=== PATIENT | male | born 1980 | race Caucasian/White ===

== ENCOUNTER 2022-09-13 20:30 | Emergency (ER) | payer OTHER, SELFPAY ==
[2022-09-13] VITALS (14 sets, daily range): BP systolic 141; BP diastolic 86; PULSE 71–92; RESP 17–26; TEMP 36.9; O2SAT 96–100; BMI 31.2
--- NOTE | 2022-09-13 20:55 | PC.NURSE ---
Pt states the only time the ribs hurt is with deep breathing. States feels similar to the pleurisy he had a while back.
--- NOTE | 2022-09-13 21:29 | ED.URI1 ---
HPI - URI/Sore Throat General Chief Complaint: Upper Respiratory Infection Stated Complaint: URTI Time Seen by Provider: 09/13/22 21:21 Source: patient and family Limitations: no limitations History of Present Illness HPI Narrative: patient presents complaining of pleuritic chest pain. Started today. left anterior chest pain that radiates to his neck with deep breath. Not short of breath. Has felt ill the past week. Vague symptoms of just not feeling right. also past chronic right TM perforation and has had drainage from the right ear. No fever or abdominal pain Related Data Home Medications Medication Instructions Recorded Confirmed cetirizine 10 mg tablet (24Hour 10 mg PO DAILY PRN allergy symptoms 09/13/22 09/13/22 Allergy) Allergies Allergy/AdvReac Type Severity Reaction Status Date / Time No Known Drug Allergies Allergy Verified 09/13/22 20:46 Review of Systems ROS Status of ROS 10 or more systems reviewed and unremarkable except as noted in history and below PFSH PFSH Social History Smoking status: Never smoker Exam Constitutional Vital Signs, click to edit/add: Last Vital Signs Temp 98.4 F 09/13/22 20:42 Pulse 73 09/13/22 20:42 Resp 18 09/13/22 20:42 BP 141/86 H 09/13/22 20:42 Pulse Ox 100 09/13/22 20:42 O2 Del Method Room Air 09/13/22 20:42 Common normals: no apparent distress, average body habitus, oriented x3, no limitations, healthy appearing, alert and well nourished [facility] Common normals: normocephalic and head/scalp atraumatic Other: right TM perforation. No exudate in the canal. canal is not narrowed Eye Common normals: PERRL, EOMs intact bilaterally and conjunctivae normal Respiratory Common normals: normal respiratory effort, no retractions, no use of accessory muscles and clear to auscultation bilaterally Cardio Common normals: regular rate, regular rhythm, S1 normal heart sound and S2 normal heart sound GI Common normals: Normal to inspection, nondistended, normoactive bowel sounds present, soft to palpation and non-tender Extremity Common normals: normal to inspection, full ROM and no joint enlargement Neuro Common normals: oriented x3, CN's II-XII intact bilaterally, moves all extremities, no focal motor deficits and no sensory deficits noted Psych Appearance: grossly normal Course Vital Signs Vital signs: Vital Signs Temperature 98.4 F 09/13/22 20:42 Pulse Rate 73 09/13/22 20:42 Respiratory Rate 18 09/13/22 20:42 Blood Pressure 141/86 H 09/13/22 20:42 Pulse Oximetry 100 09/13/22 20:42 Oxygen Delivery Method Room Air 09/13/22 20:42 Temperature 98.4 F 09/13/22 20:42 Pulse Rate 73 09/13/22 20:42 Respiratory Rate 18 09/13/22 20:42 Blood Pressure 141/86 H 09/13/22 20:42 Pulse Oximetry 100 09/13/22 20:42 Oxygen Delivery Method Room Air 09/13/22 20:42 MDM - URI/Sore Throat MDM Narrative Medical decision making narrative: patient presents complaining of pleuritic chest pain. Not short of breath. no fever. CTA chest with left pleural effusion and early pneumonia. will plan to treat as CAP. he also complains of chronic pain left lower rib cage that he describes as a slip rib. Patient informed there is no mention on his scan of a rib abnormality. will plan to refer to pain clinic to see if they can treat this chronic pain related to his rib Lab Data Labs: Lab Results 09/13/22 Range/Units 21:57 WBC 8.5 (4.0-11.0) 10^3/uL RBC 6.01 (4.70-6.10) 10^6/uL Hgb 15.6 (14.0-18.0) g/dL Hct 49.1 (42.0-54.0) % MCV 81.7 (80.0-94.0) fL MCH 26.0 (25.9-34.0) pg MCHC 31.8 (29.9-35.2) g/dL RDW 14.4 (11.0-15.0) % Plt Count 227 (150-450) 10^3/uL MPV 9.9 (9.5-13.5) fL Neut % (Auto) 65.2 (43.0-75.0) % Lymph % (Auto) 19.5 L (20.5-60.0) % Jerome % (Auto) 12.2 H (1.7-12.0) % Eos % (Auto) 2.5 (0.9-7.0) % Baso % (Auto) 0.2 (0.2-2.0) % Neut # (Auto) 5.5 (1.4-6.5) 10^3/uL Lymph # (Auto) 1.7 (1.2-3.8) 10^3/uL Jerome # (Auto) 1.0 H (0.3-0.8) 10^3/uL Eos # (Auto) 0.2 (0.0-0.7) 10^3/uL Baso # (Auto) 0.0 (0.0-0.1) 10^3/uL Abs Immat Gran (auto) 0.03 (0.00-0.03) 10^3/uL Imm/Tot Granulo (auto) 0.4 (0.0-0.5) % Sodium 138 (136-145) mmol/L Potassium 3.8 (3.5-5.1) mmol/L Chloride 102 (98-107) mmol/L Carbon Dioxide 27.6 (21.0-32.0) mmol/L Anion Gap 12.2 BUN 13.0 (7.0-18.0) mg/dL Creatinine 0.99 (0.70-1.30) mg/dL Est GFR ( Amer) >60 (>=60) Est GFR (Non-Af Amer) >60 (>=60) BUN/Creatinine Ratio 13.1 Glucose 88 (74-106) mg/dL Calcium 8.7 (8.5-10.1) mg/dL Troponin I High Sens 5.0 (4.0-76.1) pg/mL Discharge Plan Discharge Chief Complaint: Upper Respiratory Infection Clinical Impression: Rib pain on left side, Community acquired pneumonia Prescriptions / Home Meds: No Action cetirizine [24Hour Allergy] 10 mg tablet 10 mg PO DAILY PRN (Reason: allergy symptoms) Instructions: Pneumonia (ED) Additional Instructions: follow up with your doctor for recheck pneumonia and follow up with pain clinic regarding your rib pain Stand Alone Forms: Portal Instructions Referrals: LILIYA CERRATO [Primary Care Provider] - 1 week
--- NOTE | 2022-09-13 21:48 | ECG_ITS ---
The [facility] Test Date: 2022-09-13 Pat Name: SANDHYA MERCER Department: Room: - Gender: Male Case Specialist: : 1980 Requested By: LILIYA CERRATO Order Number: [id number] Reading MD: YUNIEL SO Measurements Intervals [place] Rate: 73 P: 33 NC: 146 QRS: 26 QRSD: 96 T: 35 QT: 364 QTc: 390 Interpretive Statements 1100 Sinus rhythm [address] elevation [address] & [place] abnormality 9130 borderline ECG No previous ECG available for comparison Electronically Signed On 09-14-2022 7:09:22 EDT by YUNIEL SO
--- NOTE | 2022-09-13 21:48 | CT_ITS ---
The [address] [address] Patient Name: SANDHYA MERCER MRN: [id number] date: 1980 Sex: M Assigned Patient Location: ED.MAIN Current Patient Location: ER Accession/Order Number: [id number] Exam Date: 09/13/2022 22:25 Report Date: 09/14/2022 00:27 At the request of: WANDA FOWLER Procedure: CT angio chest EXAM: CT angio chest HISTORY: Pleuritic chest pain. COMPARISON: None. TECHNIQUE: CTA chest with IV contrast. FINDINGS: There is adequate opacification of the pulmonary arteries. No filling defects. No axillary or mediastinal thoracic lymphadenopathy. Normal heart size. Aorta is normal caliber. Groundglass infiltrates are present in the left lower lobe. Lung volumes are low. Trace left effusion. No significant right effusion. Central airways are patent. No acute findings in the upper abdomen to extent of limited visualization. CT/CT angio chest IMPRESSION: 1. No evidence of pulmonary embolism. 2. Infiltrate and trace effusion at the left lung base likely pneumonia. Electronically authenticated by: SANDRINE ARIAS Date: 09/14/2022 00:27
--- NOTE | 2022-09-13 22:06 | PC.NURSE ---
This nurse assumed care for pt Pt states he had pleurisy around 20 years ago and that it was a pain he will never forget Pt states he is feeling the same way pt states it hurts intensely with deep breaths Pt gowned, placed on telemetry monitor, EKG obtained, IV started and labs drawn Pt resting comfortably in bed with his family at bedside
[2022-09-13 22:08] LABS: Basophils Percent Auto 0.2 % (0.2-2.0); Eosinophils Absolute Auto 0.2 10^3/uL (0.0-0.7); Eosinophils Percent Auto 2.5 % (0.9-7.0); Hematocrit 49.1 % (42.0-54.0); Hemoglobin 15.6 g/dL (14.0-18.0); Immature Granulocytes Abs Auto 0.03 10^3/uL (0.00-0.03); Immature Granulocytes Pct Auto 0.4 % (0.0-0.5); Lymphocytes Absolute Auto 1.7 10^3/uL (1.2-3.8); Lymphocytes Percent Auto 19.5 % (20.5-60.0); Mean Corpuscular HGB Conc 31.8 g/dL (29.9-35.2); Mean Corpuscular Volume 81.7 fL (80.0-94.0); Mean Platelet Volume 9.9 fL (9.5-13.5); Monocytes Percent Auto 12.2 % (1.7-12.0); Neutrophils Absolute Auto 5.5 10^3/uL (1.4-6.5); Neutrophils Percent Auto 65.2 % (43.0-75.0); Platelet Count 227 10^3/uL (150-450); Red Blood Count 6.01 10^6/uL (4.70-6.10); Red Cell Distribution Width 14.4 % (11.0-15.0); White Blood Count 8.5 10^3/uL (4.0-11.0)
[2022-09-13 22:25] LABS: Anion Gap 12.2; BUN Creatinine Ratio 13.1; Calcium 8.7 mg/dL (8.5-10.1); Carbon Dioxide 27.6 mmol/L (21.0-32.0); Chloride 102 mmol/L (98-107); Estimated GFR (African America >60 (>=60); Estimated GFR (Non-African Ame >60 (>=60); Glucose 88 mg/dL (74-106); Potassium 3.8 mmol/L (3.5-5.1); Sodium 138 mmol/L (136-145)
[2022-09-14] VITALS: O2SAT 96
[2022-09-14] MEDS: CEFTRIAXONE 1,000 MG in 0.9 % SODIUM CHLORIDE 50 ML 100 MG IV (00:17)
[2022-09-14] MEDS: KETOROLAC TROMETHAMINE 30 MG/ML VIAL IVP (00:20)
[2022-09-14] MEDS: AZITHROMYCIN 500 MG in 0.9 % SODIUM CHLORIDE 250 ML 250 MG IV (00:24)
[2022-09-14 01:55] VITALS: BP 117/78; O2SAT 96
== END 2022-09-14 02:00 | disposition home or self-care (01) ==
PROVIDERS: Emergency Provider Internal Medicine; PCP Nurse Practitioner Family
DX: R07.81 Pleurodynia (principal); J18.9 Pneumonia, unspecified organism
CPT/HCPCS: 36415; 71275; 80048; 84484; 85025; 93005; 96365; 96366; 96368; 96375; 99285; J0456; Q9967

== ENCOUNTER 2022-12-28 10:34 | Outpatient (OUT) | payer OTHER, SELFPAY ==
[2022-12-28 12:19] LABS: Estimated Average Glucose 105 mg/dL; Glycohemoglobin A1C 5.3 % (4.5-6.2)
[2022-12-28 12:26] LABS: Alanine Aminotransferase 51 U/L (16-63); Albumin Globulin Ratio 1.2; Albumin Level 4.2 g/dL (3.4-5.0); Alkaline Phosphatase 33 U/L (46-116); Anion Gap 10.3; Aspartate Amino Transferase 19 U/L (15-37); BUN Creatinine Ratio 14.7; Bilirubin Total 0.7 mg/dL (0.2-1.0); Calcium 9.3 mg/dL (8.5-10.1); Chloride 103 mmol/L (98-107); Chol HDL Ratio 5.4; Cholesterol 220 mg/dL (<=200); Estimated GFR (African America >60 (>=60); Estimated GFR (Non-African Ame >60 (>=60); Globulin 3.5 g/dL; Glucose 90 mg/dL (74-106); HDL Cholesterol 41 mg/dL (40-60); Potassium 4.3 mmol/L (3.5-5.1); Sodium 139 mmol/L (136-145); Thyroid Stimulating Hormone 1.323 uIU/mL (0.358-3.740); Total Protein 7.7 g/dL (6.4-8.2); Triglycerides 148 mg/dL (<=150); VLDL CHOLESTEROL 29.6 mg/dL
== END 2022-12-28 10:35 | disposition home or self-care (01) ==
LOC: LAB 10:35
PROVIDERS: PCP Nurse Practitioner Family
DX: E66.3 Overweight (principal)
CPT/HCPCS: 36415; 80053; 80061; 83036; 84443

== ENCOUNTER 2023-02-04 13:30 | Outpatient (OUT) | payer OTHER, SELFPAY ==
[2023-02-04 13:55] LABS: Bilirubin Urine NEGATIVE (NEGATIVE); Blood Urine NEGATIVE (NEGATIVE); Clarity Urine CLEAR (CLEAR); Color Urine YELLOW (YELLOW); Glucose Urine UA NEGATIVE (NEGATIVE); Ketones Urine NEGATIVE (NEGATIVE); Leukocyte Esterase Urine NEGATIVE (NEGATIVE); Nitrite Urine NEGATIVE (NEGATIVE); Protein Urine NEGATIVE (NEG/TRACE); Specific Gravity Urine 1.015 (1.005-1.025); Urobilinogen Urine 0.2 EU/dL (0.2-1.0); pH Urine 6.5 (5.0-9.0)
[2023-02-04 14:01] LABS: Bacteria Urine NONE SEEN #/HPF (NONE SEEN); Cast Seen? NONE SEEN #/LPF (NONE SEEN); Crystals Seen? None Seen #/HPF (None Seen); Mucus Urine TRACE (NONE SEEN); RBC Urine NONE SEEN #/HPF (0-2); Squamous Epithelial Cell Urine NONE SEEN #/LPF (NONE/RARE); WBC Urine 0-2 #/HPF (NONE SEEN)
[2023-02-04 14:34] LABS: Alanine Aminotransferase 51 U/L (16-63); Albumin Globulin Ratio 1.1; Albumin Level 4.1 g/dL (3.4-5.0); Alkaline Phosphatase 44 U/L (46-116); Anion Gap 11.9; Aspartate Amino Transferase 16 U/L (15-37); BUN Creatinine Ratio 13.5; Bilirubin Total 0.3 mg/dL (0.2-1.0); Calcium 9.5 mg/dL (8.5-10.1); Chloride 101 mmol/L (98-107); Estimated GFR (African America >60 (>=60); Estimated GFR (Non-African Ame >60 (>=60); Globulin 3.7 g/dL; Glucose 89 mg/dL (74-106); Potassium 3.9 mmol/L (3.5-5.1); Sodium 140 mmol/L (136-145); Total Protein 7.8 g/dL (6.4-8.2)
== END 2023-02-04 13:31 | disposition home or self-care (01) ==
PROVIDERS: PCP Nurse Practitioner Family; Visit Provider Nurse Practitioner Family
DX: N50.819 Testicular pain, unspecified (principal); E78.49 Other hyperlipidemia
CPT/HCPCS: 36415; 80053; 81001; 87086

== ENCOUNTER 2023-02-18 09:55 | Outpatient (OUT) | payer OTHER, SELFPAY ==
--- NOTE | 2023-02-18 09:59 | US_ITS ---
The [address] [address] Patient Name: SANDHYA MERCER MRN: [id number] date: 1980 Sex: M Assigned Patient Location: US Current Patient Location: Accession/Order Number: [id number] Exam Date: 02/18/2023 10:00 Report Date: 02/19/2023 01:46 At the request of: LILIYA CERRATO Procedure: US scrotum EXAMINATION: US scrotum HISTORY: Testicular Pain N50.819 ; chronic right scrotal pain; no known injury COMPARISON: No relevant comparison available. TECHNIQUE: High-resolution sonographic imaging of the scrotum and contents was performed. FINDINGS: RIGHT: TESTICLE: Homogeneous echotexture. No visible mass. Color Doppler flow is present. Spectral Doppler demonstrates normal arterial waveform and flow, 5/2 cm/s (PSV/EDV), and normal venous wave flow averaging 2 cm/s. EPIDIDYMIS: Normal size and echogenicity. OTHER: Trace amount of free fluid. LEFT: TESTICLE: Homogeneous echotexture. No visible mass. Color Doppler flow is present. Spectral Doppler demonstrates arterial waveform and flow, 5/2 cm/s (PSV/EDV), and normal venous flow averaging 1 cm/s. EPIDIDYMIS: Normal size and echogenicity. OTHER: None. US/US scrotum IMPRESSION: 1. Tiny right hydrocele of uncertain etiology. 2. Otherwise unremarkable scrotal ultrasound. Electronically authenticated by: LUCÍA VILLARREAL Date: 02/19/2023 01:46
--- NOTE | 2023-02-18 09:59 | US_ITS ---
The [address] [address] Patient Name: SANDHYA MERCER MRN: [id number] date: 1980 Sex: M Assigned Patient Location: US Current Patient Location: US Accession/Order Number: [id number] Exam Date: 02/18/2023 10:00 Report Date: 02/18/2023 11:28 At the request of: LILIYA CERRATO Procedure: US renal bladder EXAM: US renal bladder HISTORY: Testicular Pain N50.819 COMPARISON: None. TECHNIQUE: Transabdominal exam FINDINGS: The right kidney measures 11 cm Left kidney measures 12 cm. No hydronephrosis. Incidental simple cyst right kidney measures 9 x 9 x 8 mm benign with no follow-up required Urinary bladder is unremarkable. Prevoid bladder volume 54 cc Postvoid bladder volume 4 cc. Bilateral ureteral jets noted. US/US renal bladder IMPRESSION: No hydronephrosis Incidental right renal cyst benign with no follow-up required Electronically authenticated by: GREYSON ABAD Date: 02/18/2023 11:28
--- OUTSIDE RECORDS SUMMARY | 2023-02-18 10:03 | XMS_ITS | CCD ---
Author Name Unknown Address [address] [place] [address] Organization [facility] Care Team Providers Care Buckle Frame Shaper Name Role Phone TRABOULSI, MARLEEN Unavailable Unavailable TRABOULSI, MARLEEN Unavailable Unavailable NOAH SOARES (FLOOR SURFACER) Unavailable Unavail able TRABOULSI, MARLEEN Unavailable Unavailable TRABOULSI, MARLEEN Unavailable Unavailable TRABOULSI, MARLEEN Unavailable Unavailable TRABOULSI, MARLEEN Unavailable Unavailable KAMPANI, REECHA (OD) Unavailable Unavailable KAMPANI, REECHA (OD) Unavailable Unavailable TRABOULSI, MARLEEN Unavailable Unavailable TRABOULSI, MARLEEN Unavailable Unavailable KAMPANI, REECHA (OD) Unavailable Unavailable Simon Pink Unavailable Kendall Brown Unavailable LILIYA CERRATO Admitting Unavailable LILIYA CERRATO Attending Unavailable LILIYA CERRATO Primary Care Unavailable LILIYA CERRATO Admitting Unavailable LILIYA CERRATO Attending Unavailable LILIYA CERRATO Consulting Unavailable LILIYA CERRATO Primary Care Unavailable Medications Current Medications Medication Drug Class(es) Dates Sig (Normalized) Sig (Original) amylase 969410 unt / lipase 23329 unt / protease [id number] unt delayed release oral capsule (7 sources) Start: 12-15-2020 Start: 12-15-2020 take 23329-749564 [I U] by mouth three times daily Zenpep [id number] UNIT as directed Orally tid for 30 day(s) Nov, Active dicyclomine hydrochloride 20 mg oral tablet (8 sources) Anticholinergic Start: 02-05-2021 take 1 tablet by mouth twice daily as needed Dicyclomine HCl 20 MG 1 tablet Orally bid prn for 30 days Feb, Active Start: 02-05-2021 Dicyclomine HC l 20 MG 1 tablet Orally PRN for 30 day(s) Feb, Active pantoprazole 40 mg delayed release oral tablet (10 sources) Proton Pump Inhibitor take 1 tablet by mouth every twenty-four hours Pantoprazole Sodium 40 MG 1 tablet Orally Once a day Active Pantoprazole Sod ium Active predniSONE 20 mg oral tablet (1 source) Start: 03-19-2021 take 1 tablet by eliezer th every twenty-four hours traZODone (10 sources) Serotonin Reuptake Inhibitor traZODone HCl Ac tive valACYclovir (10 sources) Herpesvirus Nucleoside Analog DNA Polyme rase Inhibitor, Herpes Simplex Virus Nucleoside Analog DNA Polymerase Inhibitor, Herpes Zoster Virus Nucleoside Analog DNA Polymerase Inhibitor valACYclovir HCl Active vancomycin 125 mg oral capsule (1 source) Glycopeptide Antibacterial Start: 12-25-2020 take 1 capsule by mouth every twelve hours Vancomycin HCl 125 MG 1 capsule Orally bid for 10 days Nov, Active Completed/Discontinued Medications Medication Drug Class(es) Dates Sig (Normalized) Sig (Original) Crutches Underarm Crutches (4 sources) Start: 09-13-2016 Crutches Underarm Crutches as directed underarm as directed for days Aug, Not-Taking indomethacin 25 mg oral capsule (8 sources) Nonsteroidal Anti-inflammatory Drug Start: 09-13-2016 take 1 capsule by mouth every twelve hours Indomethacin 25 MG 1 capsule with food or milk Orally Twice a day for 30 day(s) Aug, Not-Taking Start: 09-13-2016 take 1 capsule by mo [facility] every twelve hours Indomethacin 50 MG 1 capsule with food or milk Orally Twice a day for 10 days Aug, Not-Taking Ketorolac (6 sources) Nonsteroidal Anti-inflammatory Drug, Cyclooxygenase Inhibitor Start: 09-13-2016 Toradol p er 15 mg Aug, 60 mg Start: 10-30-2015 Toradol per 15 mg Oct, 60 mg methylPREDNISolone (3 sources) Corticosteroid Start: 10-05-2012 Depo-Medrol 40 mg Sep, 40 mg Post-OP Shoe/Soft Top Men - (4 sources) Start: 09-13-2016 Post-OP Shoe/S oft Top Men - as directed post-op shoe as directed for days Aug, Not-Taking tiZANidine (4 sources) Central alpha-2 Adrenergic Agonist tiZANidine HCl Not-Taking Problems Active Problems Problem Classification Problem Date Documented Da te Episodic/Chronic Abdominal pain (11 sources) Abdominal pain; Translations: [Unspecified abdominal pain] Onset: 1 Resolved: 1 Episodic Esophageal disorders (14 sources) Gastroesophageal reflux disease; Translations: [Gastro-esophageal reflux disease without esophagitis] Onset: 1 Resolved: 2 Chronic Fever of unknown origin (1 source) Fever, unspecified; Translations: [FEVER UNSPECIFIED] Onset: 2 Episodic Other gastrointestinal disorders (6 sources) Irritable bowel syndrome with diarrhea; Translations: [Irritable bowel syndrome with diarrhea] Chronic Other gastrointestinal disorders (3 sources) Irritable bowel syndrome with diarrhea Onset: 1 Resolved: 2 Chronic Other gastrointestinal disorders (10 sources) Constipation; Translations: [Constipation, unspecified] Episodic Other gastrointestinal disorders (10 sources) Diarrhea; Translations: [Diarrhea, unspecified] Episodic Other upper respiratory infections (1 source) Acute upper respiratory infection, unspecified; Translations: [ACUTE UP RESPIRATORY INFECTION UNS] Onset: 2 Episodic Pancreatic disorders (not diabetes) (13 sources) Exocrine pancreatic insufficiency; Translations: [Exocrine pancreatic insufficiency] Onset: 1 Resolved: 2 Episodic Unclassified (2 sources) CONTACT W/AND (SUSP) EXPOS COVID-19; Translations: [CONTACT W/AND (SUSP) EXPOS COVID-19] Onset: 2 Viral infection (1 source) COVID-19; Translations: [COVID-19] Onset: 2 Past or Other Problems Problem Classification Problem Date Documented Da te Episodic/Chronic Other eye disorders (1 source) Unspecified exotropia; Translations: [Unspecified exotropia] Onset: 08-30-2016 Episodic Other gastrointestinal disorders (2 sources) Diarrhea, unspecified; Translations: [Diarrhea R19.7] Onset: 12-15-2020 Resolved: 12-19-2020 Episodic Unclassified (1 source) CONTACT W/AND (SUSP) EXPOS COVID-19; Translations: [CONTACT W/AND (SUSP) EXPOS COVID-19] Onset: 02-01-2022 Results Test Name Value Interpretation Reference Range Facility Covid-19 PCR (CVDTB)on SARS-CoV-2 (COVID-19) RNA HEATH+probe Ql (Unsp spec) Detected Critically abnormal NOT DETECTED [facility] Comment on above: Result Comment: This test is not yet erick roved or cleared by the [place] FDA. When there are no FDA-approved or cleared tests available, and other criteria are met, FDA can make tests available under an emergency access mechanism called an Emergency Use Authorization (EUA). The EUA for this test is supported by the [place] of Health and Human Service's declaration that circumstances exist to justify the emergency use of in vitro diagnostics for the detection and/or diagnosis of the virus that causes COVID-19. This EUA will remain in effect for the duration of the COVID-19 declaration justifying emergency of IVDs, unless it is terminated or revoked by the FDA (after which the test may no longer be used). Performed By: #### C VDTB #### [facility] [address] [place] [address] Dr. Tiffany Huggins INFLUENZA A AND B AGon 02-01 [facility] SEE BELOW Normal [facility] Comment on above: Result Comment: Negative for Flu A prote in angiten. Infection due to Flu A cannot be ruled out. Flu A angiten in the sample may be below the detection limit of the test. Performed By: #### I NFLUAB #### [facility] [address] [place] [address] Dr. [facility] SEE BEL[facility] Normal [facility] Comment on above: Result Comment: Negative for Flu B prote in antigen. Infection due to Flu B cannot be ruled out. Flu B antigen in the sample may be below the detection limit of the test. Performed By: #### I NFLUAB #### [facility] [address] [place] [address] Dr. Tiffany Huggins INFLUENZA A AG Negative Normal NEGATIVE SEE COMMENT [facility] Comment on above: Performed By: #### INFLUAB #### [facility] [address] [place] [address] Dr. Tiffany Huggins INFLUENZA B AG Negative Normal NEGATIVE SEE COMMENT [facility] Comment on above: Performed By: #### INFLUAB #### [facility] [address] [address] [address] Tiffany Huggins INTERNAL CONTROLS Within Normal Limits Normal Within Normal Limits [facility] Comment on above: Performed By: #### INFLUAB #### [facility] [address] [address] [address] Tiffany Huggins Basic Metabolic Panelon 05-29 Calcium [Mass/Vol] 9.6 mg/dL Normal 8.2-10.2 [facility] Comment on above: Performed By: #### CBC, LIPASE, PT, TROP , CMP, SANDRA #### [facility] [address] Chloride [Moles/Vol] 101 mmol/L Normal 95-114 [facility] Comment on above: Performed By: #### CBC, LIPASE, PT, TROP , CMP, SANDRA #### [address] CO2 [Moles/Vol] 24.6 mmol/L Normal 22.0-30.0 [facility] Comment on above: Performed By: #### CBC, LIPASE, PT, TROP , CMP, SANDRA #### [address] Creatinine [Mass/Vol] 0.93 mg/dL Normal 0.64-1.27 [facility] Comment on above: Performed By: #### CBC, LIPASE, PT, TROP , CMP, SANDRA #### [place] [address] [place] Creatinine [facility]r [facility] 119.32 [facility] Comment on above: Performed By: #### CBC, LIPASE, PT, TROP , CMP, SANDRA #### [facility] [address] Estimated GFR ( Charity > 60 [facility] Comment on above: Result Comment: GFR estimated reference range: According to KDOQI guidelines, <60 ml/min/1.73m2 is sufficient to diagnose a patient with chronic kidney disease. Performed By: #### C BC, LIPASE, PT, TROP, CMP, SANDRA #### [facility] [address] [place] [address] [place] Estimated GFR (Non- Am > 60 Normal [facility] Comment on above: Performed By: #### CBC, LIPASE, PT, TROP , CMP, SANDRA #### [address] Glucose [Mass/Vol] 94 mg/dL Normal 70-100 [facility] Comment on above: Result Comment: Random Glucose Reference Range is dependent on time and content of last meal. Glucose of more than 200 mg/dL in a nonstressed, ambulatory subject supports the diagnosis of Diabetes Mellitus. ADA recommended reference range Performed By: #### C BC, LIPASE, PT, TROP, CMP, SANDRA #### [facility] [address] [place] [address] Potassium [Moles/Vol] 3.9 mmol/L Normal 3.5-5.1 [facility] Comment on above: Performed By: #### CBC, LIPASE, PT, TROP , CMP, SANDRA #### [facility] [address] [place] [address] Sodium [Moles/Vol] 136 mmol/L Normal 136-146 [facility] Comment on above: Performed By: #### CBC, LIPASE, PT, TROP , CMP, SANDRA #### [address] Urea nitrogen [Mass/Vol] 11 mg/dL Normal 9-23 [facility] Comment on above: Performed By: #### CBC, LIPASE, PT, TROP , CMP, SANDRA #### [address] abdomen pelvis w conon CT abdomen pelvis w con [facility] Main [place] [address] [place] [address] CT Scan Report Signed Patient: Sandhya Mercer JR MR#: [id number] : 1980 Acct:[id number] Age/Sex: 39 / M ADM Date: 06/11/20 Loc: ER Room: Type: [facility] ER Attending Dr: Ordering Provider: Chad Mccray DO Date of Service: 06/11/20 CT/CT abdomen pelvis w con: Abdominal Pain Copies to: Chad Mccray DO CT abdomen and pelvis withcontrast TECHNIQUE: Axial imaging with 2-D reconstruction.90 cc of Isovue-300. The CT exam was performed using one or more the following dose reduction techniques: Automated exposure control, adjustment of the MA and/or Kv according to patient size, or use of the iterative reconstruction technique. COMPARISON: 06/05/20 History: LEFT flank pain. LEFT upper quadrant pain. Constipation. Prior appendectomy Lung bases are unremarkable. No hepatic mass or intrahepatic biliary ductal dilatation identified. Normal density of the liver parenchyma identified. No gallbladder abnormality identified. No extrahepatic biliary ductal dilatation identified. There is no splenomegaly or splenic mass identified. No pancreatic mass or ductal dilatation identified. The adrenal glands are unremarkable. No nephrolithiasis or obstructive uropathy is identified. No abdominal aortic aneurysm identified. No significant retroperitoneal abnormalities identified. The small bowel loops are nondistended. Appendectomy changes identified. There is no colonic wall thickening, distention or pericolonic inflammatory changes. Urinary bladder is unremarkable. Reproductive structures are unremarkable. No free intraperitoneal air or fluid is identified. The bony structures are unremarkable. No subcutaneous soft tissue abnormality identified. CT/CT abdomen pelvis w con IMPRESSION: No nephrolithiasis or obstructive uropathy. No acute findings Impression dictated by: Christ English M.D.06/11/2020 12:42 PM Dictation Location: [place] [address] Transcribed By: [facility] 06/11/20 1242 Dictated By: Christ English DO 06/11/20 1235 Signed By: 06/11/20 1242 Normal [facility] Complete Blood Count Auto Di ffon 06-11-2020 Basophils (Bld) [#/Vol] 0.0 10*3/uL Normal 0.0-0.2 [facility] Comment on above: Result Comment: PERFORMED BY: [place] [address] PATHOLOGIST [employer]PER[employer] MONTY VARELA M.D. Performed By: #### C BC, LIPASE, PT, TROP, CMP, SANDRA #### [address] Basophils/100 WBC (Bld) 0.3 % Normal . [facility] Comment on above: Performed By: #### CBC, LIPASE, PT, TROP , CMP, SANDRA #### [address] Eosinophils (Bld) [#/Vol] 0.1 10*3/uL Normal 0.0-0.45 [facility] Comment on above: Performed By: #### CBC, LIPASE, PT, TROP , CMP, SANDRA #### [address] Eosinophils/100 WBC (Bld) 2.6 % Normal . [facility] Comment on above: Performed By: #### CBC, LIPASE, PT, TROP , CMP, SANDRA #### [address] Erythrocyte distribution width (RBC) [Ratio] 13.6 % Normal 12.0-14.8 [facility] Comment on above: Performed By: #### CBC, LIPASE, PT, TROP , CMP, SANDRA #### [address] Hematocrit (Bld) [Volume fraction] 42.2 % Normal 38.8-50.0 [facility] Comment on above: Performed By: #### CBC, LIPASE, PT, TROP , CMP, SANDRA #### [address] Hemoglobin (Bld) [Mass/Vol] 14.4 g/dL Normal 13.0-17.0 [facility] Comment on above: Performed By: #### CBC, LIPASE, PT, TROP , CMP, SANDRA #### [address] Lymphocytes (Bld) [#/Vol] 1.6 10*3/uL Normal 1.00-4.8 [facility] Comment on above: Performed By: #### CBC, LIPASE, PT, TROP , CMP, SANDRA #### [address] Lymphocytes/100 WBC (Bld) 31.5 % Normal . [facility] Comment on above: Performed By: #### CBC, LIPASE, PT, TROP , CMP, SANDRA #### [address] MCH (RBC) [Entitic mass] 28.0 pg Normal 27.5-35.2 [facility] Comment on above: Performed By: #### CBC, LIPASE, PT, TROP , CMP, SANDRA #### [address] MCV (RBC) [Entitic vol] 81.8 fL Low 83.5-101 [facility] Comment on above: Performed By: #### CBC, LIPASE, PT, TROP , CMP, SANDRA #### [address] Mean Corpuscular HGB Conc 34.2 g/dL Normal 32.5-35.6 [facility] Comment on above: Performed By: #### CBC, LIPASE, PT, TROP , CMP, SANDRA #### [address] Monocytes (Bld) [#/Vol] 0.6 10*3/uL Normal 0.0-0.8 [facility] Comment on above: Performed By: #### CBC, LIPASE, PT, TROP , CMP, SANDRA #### [address] Monocytes/100 WBC (Bld) 12.8 % Normal . [facility] Comment on above: Performed By: #### CBC, LIPASE, PT, TROP , CMP, SANDRA #### [address] Neutrophils (Bld) [#/Vol] 2.7 10*3/uL Normal 1.8-7.7 [facility] Comment on above: Performed By: #### CBC, LIPASE, PT, TROP , CMP, SANDRA #### [address] Neutrophils/100 WBC (Bld) 52.8 % Normal . [facility] Comment on above: Performed By: #### CBC, LIPASE, PT, TROP , CMP, SANDRA #### [address] Nucleated RBC/100 WBC (Bld) [Ratio] 0.1 % Normal 0-0.5 [facility] Comment on above: Performed By: #### CBC, LIPASE, PT, TROP , CMP, SANDAR #### [address] Platelet mean volume (Bld) [Entitic vol] 8.2 fL Normal 6.6-10.1 [facility] Comment on above: Performed By: #### CBC, LIPASE, PT, TROP , CMP, SANDRA #### [facility] [address] Platelets (Bld) [#/Vol] 215 10*3/uL Normal 150-450 [facility] Comment on above: Performed By: #### CBC, LIPASE, PT, TROP , CMP, SANDRA #### [address] RBC (Bld) [#/Vol] 5.16 10*6/uL Normal 3.90-5.60 [facility] Comment on above: Performed By: #### CBC, LIPASE, PT, TROP , CMP, SANDRA #### [address] WBC (Bld) [#/Vol] 5.1 10*3/uL Normal 4.5-11.0 [facility] Comment on above: Performed By: #### CBC, LIPASE, PT, TROP , CMP, SANDRA #### [address] ECG 12 lead ECGon 06-11-2020 ECG 12 lead ECG [facility] [place] [address] Electrocardiograph Report Signed Patient: Sandhya Mercer JR MR#: [id number] : 1980 Acct:[id number] Age/Sex: 39 / M ADM Date: 06/11/20 Loc: ER Room: Type: [facility] ER Attending Dr: Ordering Provider: Chad Mccray DO Date of Service: 06/11/20 ECG/ECG 12 lead ECG: Abdominal Pain Copies to: Test Reason : Blood Pressure : / mmHG Vent. Rate : 061 BPM Atrial Rate : 061 BPM P-R Int : 152 ms QRS Dur : 094 ms QT Int : 428 ms P-R-T Axes : 012 014 -20 degrees QTc Int : 430 ms Normal sinus rhythm Inferior infarct , age undetermined Abnormal ECG When compared with ECG of 05-JUN-2020 13:31, No significant change was found Confirmed by CHAD CMCRAY DO ([id number]) on 06/11/2020 7:51:13 PM Referred By: Electronically Signed By:CHAD MCCRAY DO Transcribed By: MUS Dictated By: Chad Mccray DO 06/11/201101 Signed By: 06/11/201950 Normal [facility] Hepatic Panelon 06-11-2020 Albumin [Mass/Vol] 4.5 g/dL Normal 3.2-5.5 [facility] Comment on above: Performed By: #### CBC, LIPASE, PT, TROP , CMP, SANDRA #### [facility] [address] [place] [address] Albumin/Globulin [Mass ratio] 1.7 {ratio} Normal [facility] Comment on above: Performed By: #### CBC, LIPASE, PT, TROP , CMP, SANDRA #### [facility] [address] [place] [address] ALP [Catalytic activity/Vol] 39 U/L Normal 32-92 [facility] Comment on above: Performed By: #### CBC, LIPASE, PT, TROP , CMP, SANDRA #### [facility] [address] [place] [address] [place] ALT [Catalytic activity/Vol] 53 U/L Normal 10-60 [facility] Comment on above: Performed By: #### CBC, LIPASE, PT, TROP , CMP, SANDRA #### [facility] [address] [place] [id number] [place] AST [Catalytic activity/Vol] 27 U/L Normal 10-42 [facility] Comment on above: Performed By: #### CBC, LIPASE, PT, TROP , CMP, SANDRA #### [facility] [address] Bilirubin [Mass/Vol] 1.1 mg/dL Normal 0.3-1.2 [facility] Comment on above: Performed By: #### CBC, LIPASE, PT, TROP , CMP, SANDRA #### [address] Bilirubin,Indire ct 1.0 mg/dL Normal [facility] Comment on above: Performed By: #### CBC, LIPASE, PT, TROP , CMP, SANDRA #### [address] [Mass/Vol] 0.1 mg/dL Normal 0.0-0.4 [facility] Comment on above: Performed By: #### CBC, LIPASE, PT, TROP , CMP, SANDRA #### [address] Globulin (S) [Mass/Vol] 2.7 g/dL Normal [facility] Comment on above: Performed By: #### CBC, LIPASE, PT, TROP , CMP, SANDRA #### [address] Protein [Mass/Vol] 7.2 g/dL Normal 6.1-7.9 [facility] Comment on above: Performed By: #### CBC, LIPASE, PT, TROP , CMP, SANDRA #### [address] Lipaseon 06-11-2020 Lipase [Catalytic activity/Vol] 23.0 U/L Normal 22-51 [facility] Comment on above: Result Comment: PERFORMED BY: [place] [address] PATHOLOGIST [employer]PERVIS[employer] MONTY VARELA M.D. Performed By: #### C BC, LIPASE, PT, TROP, CMP, SANDRA #### [address] Prothrombin Time INRon 06-11 INR Coag (PPP) [Relative time] 1.1 {INR} Normal [facility] Comment on above: Result Comment: INR Therapeutic Range A) Pre- and Peroperative OAT started two weeks before surgery. NOT HIP SURGERY: 1.5 - 2.5 HIP SURGERY: 2 - 3 B) Primary and secondary prevention of venous THROMBOSIS: 2 - 3 C) Active venous thrombosis, pulmonary embolism and prevention of recurrent venous thrombosis: 2 - 3 D) Prevention of arterial thromboembolism including patients with mechanical heart valves: 3 - 4.5 PERFORMED BY: [place] [address] PATHOLOGIST [employer]PERVIS[employer] MONTY VARELA M.D. Performed By: #### C BC, LIPASE, PT, TROP, CMP, SANDRA #### [address] PT Coag (PPP) [Time] 12.6 s Normal 9.0-12.9 [facility] Comment on above: Performed By: #### CBC, LIPASE, PT, TROP , CMP, SANDRA #### [address] Urinalysison 06-11-2020 Appearance (U) Clear Normal Clear [facility] Comment on above: Order Comment: Name Collection Type:: Cl shelbie-Voided Midstream Performed By: #### C BC, LIPASE, PT, TROP, CMP, SANDRA #### [address] Bilirubin,Urine Negative Normal Negative [facility] Comment on above: Order Comment: Name Collection Type:: Cl shelbie-Voided Midstream Performed By: #### C BC, LIPASE, PT, TROP, CMP, SANDRA #### [place] [address] [place] Color (U) Yellow Normal Yellow [facility] Comment on above: Order Comment: Name Collection Type:: Cl shelbie-Voided Midstream Performed By: #### C BC, LIPASE, PT, TROP, CMP, SANDRA #### [address] Glucose Ql (U) Normal Normal Normal [facility] Comment on above: Order Comment: Name Collection Type:: Cl shelbie-Voided Midstream Performed By: #### C BC, LIPASE, PT, TROP, CMP, SANDRA #### [place] [address] [place] Ketones Ql (U) Negative Normal Negative [facility] Comment on above: Order Comment: Name Collection Type:: Cl shelbie-Voided Midstream Performed By: #### C BC, LIPASE, PT, TROP, CMP, SANDRA #### [address] Leukocyte esterase Test strip Ql (U) Negative Normal Negative [facility] Comment on above: Order Comment: Name Collection Type:: Cl shelbie-Voided Midstream Performed By: #### C BC, LIPASE, PT, TROP, CMP, SANDRA #### [address] Nitrite,Urine Negative Normal Negative [facility] Comment on above: Order Comment: Name Collection Type:: Cl shelbie-Voided Midstream Performed By: #### C BC, LIPASE, PT, TROP, CMP, SANDRA #### [address] Occult Blood,Urine Negative Normal Negative [facility] Comment on above: Order Comment: Name Collection Type:: Cl shelbie-Voided Midstream Result Comment: PERF ORMED BY: [place] [address] PATHOLOGIST [employer]PER[employer] MONTY VARELA M.D. Performed By: #### C BC, LIPASE, PT, TROP, CMP, SANDRA #### [address] pH (U) 7.0 [pH] Normal 5.0-9.0 [facility] Comment on above: Order Comment: Name Collection Type:: Cl shelbie-Voided Midstream Performed By: #### C BC, LIPASE, PT, TROP, CMP, SANDRA #### [address] Protein,Urine Negative Normal Negative [facility] Comment on above: Order Comment: Name Collection Type:: Cl shelbie-Voided Midstream Performed By: #### C BC, LIPASE, PT, TROP, CMP, SANDRA #### [address] Specificy [place],Urine 1.015 Normal 1.001-1.030 [facility] Comment on above: Order Comment: Name Collection Type:: Cl shelbie-Voided Midstream Performed By: #### C BC, LIPASE, PT, TROP, CMP, SANDRA #### [facility] [address] Urobilinogen,Uri ne Normal Normal Normal [facility] Comment on above: Order Comment: Name Collection Type:: Cl shelbie-Voided Midstream Performed By: #### C BC, LIPASE, PT, TROP, CMP, SANDRA #### [address] Amylaseon 06-05-2020 Amylase [Catalytic activity/Vol] 83 U/L Normal 28-100 [facility] Comment on above: Performed By: #### CBC, LIPASE, PT, TROP , CMP, SANDRA #### [address] abdomen pelvis w conon CT abdomen pelvis w con [facility] [place] [address] CT Scan Report Signed Patient: Sandhya Mercer JR MR#: [id number] : 1980 Acct:[id number] Age/Sex: 39 / M ADM Date: 06/05/20 Loc: ER Room: Type: [facility] ER Attending Dr: Ordering Provider: Gauri Daniels APRN Date of Service: 06/05/20 CT/CT abdomen pelvis w con: Abdominal Pain Copies to: Gauri Daniels APRN CT ABDOMEN AND PELVIS WITH CONTRAST CLINICAL DATA: Left upper quadrant pain with heartburn and tarry stools. COMPARISON: 01/30/2017 Spiral images were obtained through the abdomen and pelvis following 92 mL of Isovue-300. This CT exam was performed using one or more following dose reduction techniques: Automated exposure control, adjustment of the mA and/or kV according to patient size, or use of iterative reconstruction technique. Limited cuts through the lung bases show mild dependent atelectasis. The heart is borderline prominent. No hepatic masses are identified. The gallbladder is contracted and no obvious calcified gallstones are seen. The spleen, pancreas and adrenal glands are unremarkable. There are bilateral symmetric renal nephrograms with no hydronephrosis. The abdominal aorta is normal caliber. There are multiple small retroperitoneal and mesenteric lymph nodes. No ascites is present. There is moderate fluid and some food debris within the stomach. Small bowel loops are normal caliber. There is stool within the ascending and transverse colon. The descending colon is decompressed. There is subtle levoscoliotic curvature. Images through the pelvis show nondistended small bowel. Patient is status post appendectomy. There is a large amount of rectosigmoid stool. No diverticular disease is identified. The urinary bladder is unremarkable. The prostate is normal size. There is no free fluid. Small benign external iliac and inguinal lymph nodes are present. CT/CT abdomen pelvis w con IMPRESSION: INCREASED RIGHT-SIDED AND RECTOSIGMOID STOOL. NO ACUTE FINDINGS. Impression dictated by: Ariana Harper M.D.06/05/2020 2:56 PM Dictation Location: [place] [address] Transcribed By: [facility] 06/05/20 1456 Dictated By: Ariana Harper MD 06/05/20 1445 Signed By: 06/05/20 1456 Normal [facility] Complete Blood Count Auto Di ffon 06-05-2020 Basophils (Bld) [#/Vol] 0.0 10*3/uL Normal 0.0-0.2 [facility] Comment on above: Result Comment: PERFORMED BY: [place] [address] PATHOLOGIST [employer] MONTY VARELA M.D. Performed By: #### C BC, LIPASE, PT, TROP, CMP, SANDRA #### [facility] [address] [place] [address] Basophils/100 WBC (Bld) 0.5 % Normal . [facility] Comment on above: Performed By: #### CBC, LIPASE, PT, TROP , CMP, SANDRA #### [facility] [address] [place] [address] Eosinophils (Bld) [#/Vol] 0.1 10*3/uL Normal 0.0-0.45 [facility] Comment on above: Performed By: #### CBC, LIPASE, PT, TROP , CMP, SANDRA #### [address] Eosinophils/100 WBC (Bld) 2.0 % Normal . [facility] Comment on above: Performed By: #### CBC, LIPASE, PT, TROP , CMP, SANDRA #### [address] Erythrocyte distribution width (RBC) [Ratio] 13.7 % Normal 12.0-14.8 [facility] Comment on above: Performed By: #### CBC, LIPASE, PT, TROP , CMP, SANDRA #### [address] Hematocrit (Bld) [Volume fraction] 43.9 % Normal 38.8-50.0 [facility] Comment on above: Performed By: #### CBC, LIPASE, PT, TROP , CMP, SANDRA #### [address] Hemoglobin (Bld) [Mass/Vol] 14.7 g/dL Normal 13.0-17.0 [facility] Comment on above: Performed By: #### CBC, LIPASE, PT, TROP , CMP, SANDRA #### [address] Lymphocytes (Bld) [#/Vol] 1.7 10*3/uL Normal 1.00-4.8 [facility] Comment on above: Performed By: #### CBC, LIPASE, PT, TROP , CMP, SANDRA #### [address] Lymphocytes/100 WBC (Bld) 25.9 % Normal . [facility] Comment on above: Performed By: #### CBC, LIPASE, PT, TROP , CMP, SANDRA #### [address] MCH (RBC) [Entitic mass] 27.9 pg Normal 27.5-35.2 [facility] Comment on above: Performed By: #### CBC, LIPASE, PT, TROP , CMP, SANDRA #### [address] MCV (RBC) [Entitic vol] 83.1 fL Low 83.5-101 [facility] Comment on above: Performed By: #### CBC, LIPASE, PT, TROP , CMP, SANDRA #### [address] Mean Corpuscular HGB Conc 33.5 g/dL Normal 32.5-35.6 [facility] Comment on above: Performed By: #### CBC, LIPASE, PT, TROP , CMP, SANDRA #### [address] Monocytes (Bld) [#/Vol] 0.8 10*3/uL Normal 0.0-0.8 [facility] Comment on above: Performed By: #### CBC, LIPASE, PT, TROP , CMP, SANDRA #### [address] Monocytes/100 WBC (Bld) 11.6 % Normal . [facility] Comment on above: Performed By: #### CBC, LIPASE, PT, TROP , CMP, SANDRA #### [address] Neutrophils (Bld) [#/Vol] 4.0 10*3/uL Normal 1.8-7.7 [facility] Comment on above: Performed By: #### CBC, LIPASE, PT, TROP , CMP, SANDRA #### [address] Neutrophils/100 WBC (Bld) 60.0 % Normal . [facility] Comment on above: Performed By: #### CBC, LIPASE, PT, TROP , CMP, SANDRA #### [address] Nucleated RBC/100 WBC (Bld) [Ratio] 0.4 % Normal 0-0.5 [facility] Comment on above: Performed By: #### CBC, LIPASE, PT, TROP , CMP, SANDRA #### [address] Platelet mean volume (Bld) [Entitic vol] 8.6 fL Normal 6.6-10.1 [facility] Comment on above: Performed By: #### CBC, LIPASE, PT, TROP , CMP, SANDRA #### [address] Platelets (Bld) [#/Vol] 230 10*3/uL Normal 150-450 [facility] Comment on above: Performed By: #### CBC, LIPASE, PT, TROP , CMP, SANDRA #### [address] RBC (Bld) [#/Vol] 5.28 10*6/uL Normal 3.90-5.60 [facility] Comment on above: Performed By: #### CBC, LIPASE, PT, TROP , CMP, SANDRA #### [address] WBC (Bld) [#/Vol] 6.6 10*3/uL Normal 4.5-11.0 [facility] Comment on above: Performed By: #### CBC, LIPASE, PT, TROP , CMP, SANDRA #### [address] Comprehensive Metabolic Pane theresa 06-05-2020 Albumin [Mass/Vol] 4.5 g/dL Normal 3.2-5.5 [facility] Comment on above: Performed By: #### CBC, LIPASE, PT, TROP , CMP, SANDRA #### [address] Albumin/Globulin [Mass ratio] 1.6 {ratio} Normal [facility] Comment on above: Performed By: #### CBC, LIPASE, PT, TROP , CMP, SANDRA #### [address] ALP [Catalytic activity/Vol] 37 U/L Normal 32-92 [facility] Comment on above: Performed By: #### CBC, LIPASE, PT, TROP , CMP, SANDRA #### [address] ALT [Catalytic activity/Vol] 49 U/L Normal 10-60 [facility] Comment on above: Performed By: #### CBC, LIPASE, PT, TROP , CMP, SANDRA #### [address] AST [Catalytic activity/Vol] 28 U/L Normal 10-42 [facility] Comment on above: Performed By: #### CBC, LIPASE, PT, TROP , CMP, SANDRA #### [address] Bilirubin [Mass/Vol] 0.8 mg/dL Normal 0.3-1.2 [facility] Comment on above: Performed By: #### CBC, LIPASE, PT, TROP , CMP, SANDRA #### [address] Calcium [Mass/Vol] 9.5 mg/dL Normal 8.2-10.2 [facility] Comment on above: Performed By: #### CBC, LIPASE, PT, TROP , CMP, SANDRA #### [address] Chloride [Moles/Vol] 105 mmol/L Normal 95-114 [facility] Comment on above: Performed By: #### CBC, LIPASE, PT, TROP , CMP, SANDRA #### [address] CO2 [Moles/Vol] 24.5 mmol/L Normal 22.0-30.0 [facility] Comment on above: Performed By: #### CBC, LIPASE, PT, TROP , CMP, SANDRA #### [address] Creatinine [Mass/Vol] 0.94 mg/dL Normal 0.64-1.27 [facility] Comment on above: Performed By: #### CBC, LIPASE, PT, TROP , CMP, SANDRA #### [address] Creatinine Clr Calc Pharmacy 118.91 Normal [facility] Comment on above: Performed By: #### CBC, LIPASE, PT, TROP , CMP, SANDRA #### [address] [address] [place] Estimated GFR ( Charity > 60 Normal [facility] Comment on above: Result Comment: GFR estimated reference range: According to KDOQI guidelines, <60 ml/min/1.73m2 is sufficient to diagnose a patient with chronic kidney disease. Performed By: #### C BC, LIPASE, PT, TROP, CMP, SANDRA #### [address] Estimated GFR (Non- Am > 60 Normal [facility] Comment on above: Performed By: #### CBC, LIPASE, PT, TROP , CMP, SANDRA #### [address] Globulin (S) [Mass/Vol] 2.8 g/dL Normal [facility] Comment on above: Performed By: #### CBC, LIPASE, PT, TROP , CMP, SANDRA #### [address] Glucose [Mass/Vol] 94 mg/dL Normal 70-100 [facility] Comment on above: Result Comment: Random Glucose Reference Range is dependent on time and content of last meal. Glucose of more than 200 mg/dL in a nonstressed, ambulatory subject supports the diagnosis of Diabetes Mellitus. ADA recommended reference range Performed By: #### C BC, LIPASE, PT, TROP, CMP, SANDRA #### [address] Potassium [Moles/Vol] 3.9 mmol/L Normal 3.5-5.1 [facility] Comment on above: Performed By: #### CBC, LIPASE, PT, TROP , CMP, SANDRA #### [address] Protein [Mass/Vol] 7.3 g/dL Normal 6.1-7.9 [facility] Comment on above: Performed By: #### CBC, LIPASE, PT, TROP , CMP, SANDRA #### [address] Sodium [Moles/Vol] 138 mmol/L Normal 136-146 [facility] Comment on above: Performed By: #### CBC, LIPASE, PT, TROP , CMP, SANDRA #### [facility] [address] [place] [address] Urea nitrogen [Mass/Vol] 13 mg/dL Normal 9-23 [facility] Comment on above: Performed By: #### CBC, LIPASE, PT, TROP , CMP, SANDRA #### [facility] [address] [place] [address] ECG 12 lead ECGon 06-05-2020 ECG 12 lead ECG [facility] [place] [address] [place] [address] Electrocardiograph Report Signed Patient: Sandhya Mercer JR MR#: [id number] : 1980 Acct:[id number] Age/Sex: 39 / M ADM Date: 06/05/20 Loc: ER Room: Type: [facility] ER Attending Dr: Ordering Provider: Gauri Daniels APRN Date of Service: 06/05/20 ECG/ECG 12 lead ECG: ABDOMINAL PAIN Copies to: Test Reason : Blood Pressure : / mmHG Vent. Rate : 083 BPM Atrial Rate : 083 BPM P-R Int : 160 ms QRS Dur : 090 ms QT Int : 368 ms P-R-T Axes : 041 025 012 degrees QTc Int : 432 ms Normal sinus rhythm Nonspecific T wave abnormality Abnormal ECG No previous ECGs available Confirmed by MICHEAL MONTANEZ MD ([id number]) on 06/05/2020 7:28:08 PM Referred By: Electronically Signed By:MICHEAL MONTANEZ MD Transcribed By: [facility] Dictated By: Micheal Montanez MD 06/05/20 1331 Signed By: 06/05/20 1928 Normal [facility] Lipaseon 06-05-2020 Lipase [Catalytic activity/Vol] 29.0 U/L Normal 22-51 [facility] Comment on above: Result Comment: PERFORMED BY: [place] [address] PATHOLOGIST [employer] MONTY VARELA M.D. Performed By: #### C BC, LIPASE, PT, TROP, CMP, SANDRA #### [address] O+P Result.on 06-05-2020 O+P Result. Contacted Coni at your facility 06/06/20 Please note that the Microbiology test code was changed to reflect the specimen source or transport received. Performed at: [address] [id number] Director Of Retail: Shubham De Leon PhD, Phone: [phone] Final report Reference Range: None Seen No PVA preserved specimen received. For optimal O and P results we suggest the use of O and P kits containing both formalin and PVA. These kits are available from your administrative services assistant. No ova, cysts, or parasites seen. One negative specimen does not rule out the possibility of a parasitic infection. Performed at: [address] [id number] Director Of Retail: Shubham De Leon PhD, Phone: [phone] PERFORMED BY: [place] [address] PATHOLOGIST [employer] MONTY VARELA M.D. [facility] Comment on above: Performed By: #### UA, CUSTOOL #### [address] #### OP TEST CHANGE #### [facility] , Prothrombin Time INRon 06-05 INR Coag (PPP) [Relative time] 1.1 {INR} [facility] Comment on above: Result Comment: INR Therapeutic Range A) Pre- and Peroperative OAT started two weeks before surgery. NOT HIP SURGERY: 1.5 - 2.5 HIP SURGERY: 2 - 3 B) Primary and secondary prevention of venous THROMBOSIS: 2 - 3 C) Active venous thrombosis, pulmonary embolism and prevention of recurrent venous thrombosis: 2 - 3 D) Prevention of arterial thromboembolism including patients with mechanical heart valves: 3 - 4.5 PERFORMED BY: [place] [address] PATHOLOGIST [employer] MONTY VARELA M.D. Performed By: #### C BC, LIPASE, PT, TROP, CMP, SANDRA #### [address] PT Coag (PPP) [Time] 12.1 s Normal 9.0-12.9 [facility] Comment on above: Performed By: #### CBC, LIPASE, PT, TROP , CMP, SANDRA #### [address] Stool Cultureon 06-05-2020 Stool culture Negative for Shiga T oxin 1 Negative for Shiga Toxin 2 A negative Shiga Toxin result may occur if the antigen level in the specimen is below the detection limit of the assay. Stool culture results No Salmonella, Shigella, Campy or E. coli 0157:H7 Isolated PERFORMED BY: [place] [address] PATHOLOGIST [employer] MONTY VARELA M.D. Normal [facility] Comment on above: Performed By: #### UA, CUSTOOL #### [address] #### OP TEST CHANGE #### [facility] , Troponin I(TnI)on 06-05-2020 Troponin I.cardiac [Mass/Vol] ng/mL Normal 0-0.02 [facility] Comment on above: Result Comment: FIORE[place] Cut off value > o r equal to 0.03 ng/mL in conjunction with clinical conditions of myocardial infarction. (www.escardio.org/guidelines) PERFORMED BY: [place] [address] PATHOLOGIST [employer] MONTY VARELA M.D. Performed By: #### C BC, LIPASE, PT, TROP, CMP, SANDRA #### [address] Urinalysison 06-05-2020 Appearance (U) Clear Normal Clear [facility] Comment on above: Order Comment: Name Collection Type:: Cl shelbie-Voided Midstream Performed By: #### U A, CUSTOOL #### [place] [id number] [place] #### OP TEST CHANGE #### [facility] , Bilirubin,Urine Negative Normal Negative [facility] Comment on above: Order Comment: Name Collection Type:: Cl shelbie-Voided Midstream Performed By: #### U A, CUSTOOL #### [facility] [address] [place] [address] #### OP TEST CHANGE #### [facility] , Color (U) Yellow Normal Yellow [facility] Comment on above: Order Comment: Name Collection Type:: Cl shelbie-Voided Midstream Performed By: #### U A, CUSTOOL #### [facility] [address] [place] [address] #### OP TEST CHANGE #### [facility] , Glucose Ql (U) Normal Normal Normal [facility] Comment on above: Order Comment: Name Collection Type:: Cl shelbie-Voided Midstream Performed By: #### U A, CUSTOOL #### [address] #### OP TEST CHANGE #### [facility] , Ketones Ql (U) Negative Normal Negative [facility] Comment on above: Order Comment: Name Collection Type:: Cl shelbie-Voided Midstream Performed By: #### U A, CUSTOOL #### [facility] [address] [place] [address] #### OP TEST CHANGE #### [facility] , Leukocyte esterase Test strip Ql (U) Negative Normal Negative [facility] Comment on above: Order Comment: Name Collection Type:: Cl shelbie-Voided Midstream Performed By: #### U A, CUSTOOL #### [facility] [address] [place] [address] #### OP TEST CHANGE #### [facility] , Nitrite,Urine Negative Normal Negative [facility] Comment on above: Order Comment: Name Collection Type:: Cl shelbie-Voided Midstream Performed By: #### U A, CUSTOOL #### [facility] [address] [place] [address] #### OP TEST CHANGE #### [facility] , Occult Blood,Urine Negative Normal Negative [facility] Comment on above: Order Comment: Name Collection Type:: Cl shelbie-Voided Midstream Result Comment: PERF ORMED BY: [place] [address] PATHOLOGIST [employer] MONTY VARELA M.D. Performed By: #### U A, CUSTOOL #### [address] #### OP TEST CHANGE #### [facility] , pH (U) 8.0 [pH] Normal 5.0-9.0 [facility] Comment on above: Order Comment: Name Collection Type:: Cl shelbie-Voided Midstream Performed By: #### U A, CUSTOOL #### [address] #### OP TEST CHANGE #### [facility] , Protein,Urine Negative Normal Negative [facility] Comment on above: Order Comment: Name Collection Type:: Cl shelbie-Voided Midstream Performed By: #### U A, CUSTOOL #### [address] #### OP TEST CHANGE #### [facility] , Specificy [place],Urine 1.036 High 1.001-1.030 [facility] Comment on above: Order Comment: Name Collection Type:: Cl shelbie-Voided Midstream Performed By: #### U A, CUSTOOL #### [facility] [address] [place] [address] #### OP TEST CHANGE #### [facility] , Urobilinogen,Uri ne Normal Normal Normal [facility] Comment on above: Order Comment: Name Collection Type:: Cl shelbie-Voided Midstream Performed By: #### U A, CUSTOOL #### [facility] [address] #### OP TEST CHANGE #### [facility] , Ambulatory Clinical Summaryo n 03-05-2020 Ambulatory Clinical Summary {[id number] Normal [facility] General Surgery Office/Clini c Noteon 03-05-2020 General Surgery Office/Clinic Note Chief Complaint post operative follow up HPI Staff 14 day post operative follow up post EGD. Taking Protonix 40mg daily with significant improvement in reflux symptoms. Continues to experience intermittent LUQ pain/fullness. History of Present Illness 2 weeks s/p EGD, wnl; placed on Protonix with improvement in GERD, still some position LUQ pain, intermittent; no N/V; no dysphagia. Review of Systems ROS - Provider Constitutional: no fever, no sweats, no weight loss. Eyes: no glasses, no blurred vision, no visual loss. ENMT: no dentures, no hoarseness, no swallowing difficulties, no hearing loss, no ear infection(s), no nose bleeds. Cardiovascular: normal blood pressure, no chest pain, regular heartbeat, no heart murmur. Respiratory: no shortness of breath, no cough, no asthma, no wheezing. Gastrointestinal: no nausea, no vomiting, no diarrhea, no constipation, no blood in stool, no change in bowel habits, mild abdominal pain, no hepatitis. Genitourinary: no kidney stones, no urine infection, no dysuria. Musculoskeletal: no pain, no weakness. Skin: no changing moles, no rash, no skin lumps. Neurologic: no seizures, no epilepsy, no headache. Psychiatric: no emotional or psychiatric problem. Heme/Lymph: no bleeding problems, no anemia, no blood clots, no transfusions. Allergy/Immunologic: no swollen lymph nodes/glands, no IV drug abuse. Other: Additional ROS info: Except as noted in the above Review of Systems and in the History of Present Illness, all other systems have been reviewed and are negative or noncontributory. Physical Exam Vitals & Measurements T: 37.0 ?C (Tympanic) Assessment/Plan 1. GERD (gastroesophageal reflux disease) (K21.9: Gastro-esophageal reflux disease without esophagitis) continue Protonix for 4-6 weeks, then try to come off of it, using antacids, H2 blockers as needed; call with problems/questions. 2. Abdominal pain, left upper quadrant (R10.12: Left upper quadrant pain) see # 1 Follow-up No qualifying data available Problem List/Past Medical History Ongoing Abdominal pain, left upper quadrant Chronic tension headaches Epigastric pain Genital herpes simplex GERD (gastroesophageal reflux disease) Hyperlipidemia Insomnia Low hemoglobin Historical No qualifying data Procedure/Surgical History EGD - Esophagogastroduodenoscopy (02/20/2020), Appendectomy (02/29/2016), Amputation of thumb, Eye surgery, History of ankle surgery, Perforated eardrum. Medications Carafate 1 gram Tab, 1 gm= 1 tab(s), Oral, QID ibuprofen 800 mg Tab, 800 mg= 1 tab(s), Oral, QID, PRN Iron 100 Plus, 1 tab(s), Oral, Daily Multivitamin, Therapeutic w/ Minerals, 1 tab(s), Oral, Daily omeprazole 40 mg Cap-DR, 40 mg= 1 cap(s), Oral, Daily Pantoprazole [address] Tab, 40 mg= 1 tab(s), Oral, Daily tiZANidine 4 mg Tab, 4 mg= 1 tab(s), Oral, Daily, PRN traZODONE 50 mg Tab, 50 mg= 1 tab(s), Oral, Once a day (at bedtime), PRN Valtrex 500 mg Tab, 500 mg= 1 tab(s), Oral, Daily Vitamin D3 5000 intl units oral tab, 5000 International_Unit= 1 tab(s), Oral, MonWedFri Allergies No Known Allergies No Known Medication Allergies Social History Alcohol - Denies Alcohol Use, 02/06/2020 Substance Abuse - Denies Substance Abuse, 02/06/2020 Tobacco Former smoker, quit more than 30 days ago Tobacco Use:., 03/05/2020 Family History Hypertension: Father. Normal [facility] Comment on above: Result Comment: Electronically Signed By : VAN MALONE, Rayo Mascorro\Date and Time Signed: 03/05/20 17:25 EST Operative Reporton 0 Operative Report [id number]:127 Normal [facility] Lab Reportson 02-20-2020 Lab Reports [id number]#[id number]:127 [facility] Physician Referralon 020 Physician Referral [id number]:127 Normal [facility] RAD - CT Reporton 02-08-2020 RAD - CT Report [id number]:127 Normal [facility] Provider Letter FTMCon 02-06 Provider [place] [facility] [place], [address] [place] [address] Re: SANDHYA MERCER Date of : 1980 Thank you for your referral of Sandhya Mercer who was seen on consultation on February 06, 2020, for indigestion, left upper quadrant pain. An EGD is planned for further evaluation. I have enclosed my consultation notes for your review. I will happy to follow Sandhya should his symptoms persist. Sincerely, Rayo Wilson MD General Surgery [facility] Ambulatory Clinical Summaryo n 02-06-2020 Ambulatory Clinical Summary {[id number] [facility] CNCOon 11-02-2016 CNCO Letter DaanyEliaparish pandey MDYVOgjnuueurmjwb9883 [address] [address]Gyqz: [phone] 2016Mr. Sandhya Mercer13822 [address] [id number] Mr. Sandhya Mercer ,We are sorry you missed your Ophthalmology appointment with Marleen Santillan MD on 11/02/16.Please give our appointment office a telephone call at , [phone], to reschedule.Sincerely,Reno abdul [facility] Ophthalmology Normal [facility] PROGRESSon 07-10-2017 PROGRESS HNO ID: [id number] thor: Kyle (Od) Karen: (none)Author Type: OPTOMETRISTType: Progress NotesFiled: 09/06/2016 5:23 PMNote Text:1. 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 Cansend to pt, rtc f/u appt -D/c lenses and rtc w/any pain,redness or vision changeI have confirmed and edited as necessary the relevant ophthalmic history,ROS, and the neuro exam findings as obtained by others. I have seen andexamined Sandhya Mercer JR .I have discussed the case and the management of this patient's care withthe Resident/Fellow, if applicable. I also have reviewed and agree withthe assessment and plan as stated above and agree with all of its relevantcomponents.Kyle Panchal OD Normal [facility] HOSPon 09-02-2016 HOSP Office Visit [facility] ([facility]) -SANDHYA MERCER JR ([id number]) 1980 MDate Time Provider Department09/02/16 8:00 AM CONTACT LENS [facility] MAIN [facility] During your visit today, we recorded the following information about you:Referring Provider: KYLE PANCHAL (OD) [[id number]]Allergies As of Date: 09/02/2016(No Known Allergies)Date Reviewed: 09/01/2016Reviewed by: Marilin Rush (Oa) - Fully AssessedReason for Visit: Contact Lens [place] [[id number]]Primary Visit Diagnosis:Aphakia, 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]Problem List As Of Date 09/02/2016 Noted Resolved Changes in consciousness [R40.4] INVALID FOR* Confusion with nonfocal neurological examinatio*INVALID FOR* Aphakia [H27.00] INVALID FOR* Status:Closed by PATRICK RODRIGUEZ on 09/02/16 Normal [facility] 09-01-2016 HOSP Office Visit [facility] ([facility]) -SANDHYA MERCER JR ([id number]) 1980 MDate Time Provider Department09/01/16 1:30 PM MARLEEN FLORES I [facility] During your visit today, we recorded the following information about you:Marleen Flores MD 09/01/2016 11:41 AM Signedgood alignment following RANDamp;R OS for exotropia.use ointment for rest of the week tid.Can resume CL wear after the weekend.F/U 2-3 months.I have confirmed and edited as necessary the relevant ophthalmic history, ROS,and the neuro exam findings as obtained by others. I have seen and examinedthis patient.I have discussed the case and the management of this patient's care with theResident/Fellow, if applicable. I also have reviewed and agree with theassessment and plan as stated above and agree with all of its relevantcomponents.Marleen Flores MD September 01, 2016 11:40 AMReferring Provider: MARLEEN FLORES I [[id number]]Allergies As of Date: 09/01/2016(No Known Allergies)Date Reviewed: 09/01/2016Reviewed by: Marilin Rush (Oa) - Fully AssessedReason for Visit: Post-op (Ophthalmology) Left Eye [2904] Cmt: s/p strabismus repair OS 08/30/16Primary Visit Diagnosis:Monocular exotropia of left eye [H50.112]Problem List As Of Date 09/01/2016 Noted Resolved Changes in consciousness [R40.4] INVALID FOR* Confusion with nonfocal neurological examinatio*INVALID FOR* Aphakia [H27.00] INVALID FOR* Status:Closed by MARLEEN FLORES MD, I on 09/01/16 Normal [place] Office Visit OPHT (OPHTMN) -SANDHYA MERCER JR ([id number]) 1980 MDate Time Provider Department09/01/16 10:30 AM KYLE PANCHAL (OD) OPHTMN During your visit today, we recorded the following information about you:Kyle Panchal, TONIA 09/06/2016 5:23 PM Signed1. 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 Can sendto pt, rtc f/u appt -D/c lenses and rtc w/any pain,redness or vision changeI have confirmed and edited as necessary the relevant ophthalmic history, ROS,and the neuro exam findings as obtained by others. I have seen and examinedSandhya Mercer JR .I have discussed the case and the management of this patient's care with theResident/Fellow, if applicable. 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]Problem List As Of Date 09/01/2016 Noted Resolved Changes in consciousness [R40.4] INVALID FOR* Confusion with nonfocal neurological examinatio*INVALID FOR* Aphakia [H27.00] INVALID FOR* Status:Closed by KYLE PANCHAL OD on 09/06/16 Normal [facility] PROGRESSon 09-01-2016 PROGRESS HNO ID: [id number] thor: Marleen Flores IService: (none)Author Type: PhysicianType: Progress NotesFiled: 09/01/2016 11:41 AMNote Text:good alignment following RANDR OS for exotropia.use ointment for rest of the week tid.Can resume CL wear after the weekend.F/U 2-3 months.I have confirmed and edited as necessary the relevant ophthalmic history,ROS, and the neuro exam findings as obtained by others. I have seen andexamined this patient.I have discussed the case and the management of this patient's care withthe Resident/Fellow, if applicable. I also have reviewed and agree withthe assessment and plan as stated above and agree with all of its relevantcomponents.Marleen Flores MD September 01, 2016 11:40 AM Normal [facility] ANES Davion 08-30-2016 ANES POST HNO ID: [id number] thor: Aletha Agustin: AnesthesiologyAuthor Type: AnesthesiologistType: Anesthesia PostOpFiled: 08/30/2016 10:46 AMNote Text:POST ANESTHESIA EVALUATION NOTESERVICE DATE: 08/30/2016SERVICE TIME: 1046DOB: 1980Vitals: 08/30/1709Temp: 36.7 ?C (98 ?F) 36.8 ?C (98.2 ?F) 37.3 ?C (99.2 ?F) 08/30/1709P: 135/77 131/76 127/76 128/80 08/30/1709 07/03/591370Btlxg: 70 88 91 88 08/30/1709Resp: 15 17 19 20 08/30/1709SpO2: 95% 95% 96% 96%Validated Vital Signs: YesNo apparent anesthetic complications. The patient is appropriatelyhydrated with stable respiratory and cardiovascular status. Patient hassafe and adequate airway control. The patient has appropriate pain reliefand no significant post operative nausea or vomiting. The patient hasachieved baseline mental status.Further assessment by Anesthesia Service: NoneOther Remarks:SIGNATURE: Aletha Garibay MD PATIENT NAME: Sandhya Mercer JRDATE: August 30, 2016 : 10:46 AM PAGER/CONTACT #: [id number] Magalie [facility] BRIEF OP NOTon 08-30-2016 BRIEF OP NOT HNO ID: [id number] thor: JONNY Mezaervice: OphthalmologyAuthor Type: PhysicianType: Brief Op NoteFiled: 08/30/2016 10:17 AMNote Text:BRIEF OP NOTELOG ID: [id number]/Procedure Date: 08/30/2016Incision/Procedure Start Time: 9:43 AMIncision Close/Procedure End Time: 10:11 AMSurgeon(s)/Proceduralist(s) and Tick Eradicator(s):Surgeon(s) and Role: * Judie Meza assistantProcedure(s): Recess Left Lateral Rectus by 8 mmResect Left Medial Rectus 5.5 mmAnesthesia: GeneralFindings: Evidence of trauma to iris and cornea. Scars from previoussurgeryEstimated Blood Loss: 0 mlSpecimens: NoneComplications: NonePre-Op/Pre-Procedure Diagnosis: Exotropia, monocular, leftPost-Op/Post-Procedure Diagnosis: Exotropia, monocular, leftSIGNATURE: Marleen Flores MD PATIENT NAME: Sandhya Mercer JRDATE: August 30, 2016 : 10:15 AM PAGER/CONTACT #: Magalie [facility] OPERATIVE NOon 08-30-2016 OPERATIVE NO HNO ID: [id number] thor: Marleen Flores IService: OphthalmologyAuthor Type: PhysicianType: Operative ReportFiled: 09/01/2016 8:42 AMNote Text:OPERATIVE/PROCEDURE REPORTLOG ID: [id number]/Procedure Date: 08/30/2016Incision/Procedure Start Time: 9:43 AMIncision Close/Procedure End Time: 10:11 AMSurgeon(s)/Proceduralist(s) and Tick Eradicator(s):Surgeon(s) and Role: * Judie Meza Additional StaffProcedure(s):Recess left lateral rectus by 8 mmResect left medial rectus by 5.5 mmAnesthesia: GeneralProcedure Details:In the operating room and after induction of general anesthesia withlaryngeal mask application, the patient was prepped and draped in theusual fashion. An inferotemporal incision was made and the left lateralrectus muscle was isolated. A double-armed 6-0 vicryl suture was takennear the muscle insertion. The muscle was then detached and resutured tothe globe 8 mm posterior to the original insertion site. The conjunctivawas closed using interrupted 6-0 vicryl sutures.An inferonasal incision was made and the left medial rectus muscle wasisolated. Intermuscular septal attachments were severed. A lvybbx-vzjuj6-9 vicryl suture was taken 5.5 mm posterior to the muscle insertion. Astraight small clamp was placed in front of the suture. The muscle wasthen detached. The distal end was excised to the clamp and the edge wascauterized. The muscle was resutured to the globe at the originalinsertion site. The conjunctiva was closed using interrupted 6-0 vicrylsutures. gentamycin ointment was applied. The patient tolerated theprocedure well and left the operating room in good condition.Pre-Op/Pre-Procedur e Diagnosis: Left exotropiaPost-Op/Post-Procedu re Diagnosis: SameEstimated Blood Loss: 0 mlSpecimens: NoneImplantable Devices: NoneDrains: NoneComplications: NoneNo qualified resident/fellow was available.SIGNATURE: Marleen Flores MD PATIENT NAME: Sandhya Mercer DATE: September 01, 2016 : 8:34 AM PAGER/CONTACT #: [facility] PT EDon 08-30-2016 PT ED HNO ID: [id number] thor: Nisha (Rn) Matti RNService: (none)Author Type: Registered NurseType: Patient EducationFiled: 08/30/2016 11:08 AMNote Text:AMBULATORY PATIENT EDUCATION NOTEREADINESS TO LEARNCOGNITIVE ABILITY: Alert and orientedMOTIVATION TO LEARN: EagerFAMILY SUPPORT: High - Very involved in pt careINSTRUCTION PROVIDED TO: Patient and family memberPATIENT LEARNS BEST BY: Individual InstructionWritten Instruction - Hand-outsVerbal InstructionFACTORS AFFECTING LEARNING: NonePHYSICAL LIMITATIONS AFFECTING LEARNING: NoneLEARNING RESPONSEDIAGNOSIS: Exotropia, monocular, with noncomitancy [H50.10]EDUCATION TOPIC/TEACHING POINTS: Post-op Teaching: Symptom ManagementPost-op Teaching: Wound CarePost-op Teaching: Med AdministrationMETHOD OF INSTRUCTION: Individual instructionWritten instruction - handoutsVerbal instructionPATIENT / FAMILY RESPONSE: Verbalizes understanding.FOLLOW-UP PLAN: Patient instructed to call with any further issuesRecommend - Recommend continued instruction and follow up as directedContact information given.SUPPLEMENTAL MATERIAL: Shay Post-Operative InstructionsREFERRAL (RECOMMENDATION): NoneElectronically Signed By Nisha Chino RN In Department:OPHTHALMOLOGY [facility] CNOVon 08-24-2016 CNOV Office Visit (IMOPMN) -SANDHYA MERCER JR ([id number]) 1980 MDate Time Provider Department08/24/16 2:30 PM GRACIELA HOFFMAN (FLOOR SURFACER) IMOPMN During your visit today, we recorded the following information about you: Pulse Blood pressure Weight Height 74/minute 124/90 96.2 kg 1.727 VERONICA Burnett, [place] 08/24/2016 2:48 PM SignedConsulted by: Dr. Knutson of Surgery: REPAIR STRABISMUS ?2 HORIZONTAL MUSCLES/OSPatient scheduled for surgery on: 08/30/16re you experiencing any eye pain?noDo you have a history of sleep apnea?noDo you Have a pacemaker or an ICD?noDo you or any of your family members have a history of malignant hyperthermia?noAre you an Insulin dependent Diabetic?noHCG needed?n/Bailee Stein CNP 08/24/2016 2:48 PM SignedHISTORY AND PHYSICAL EXAMINATION (IMPACT)SERVICE DATE: 08/24/2016SERVICE TIME: 2:29 PMPR[facility]AN[facility] PHYSICIAN: Sander Small Jr, MD (Inactive)CHIEF COMPLAINT/HISTORY OF PRESENT ILLNESS:Mr. Mercer is a 35 year old male referred to me for preoperative evaluation. Myfinal recommendations will be communicated back to the requestingphysician/surgeon by the way of the shared medical record.Referring Surgeon: Dr. Sawyerte of Surgery: 08/30/16Planned Surgery/Procedure: REPAIR STRABISMUS ?2 HORIZONTAL MUSCLES/OS REPAIRSTRABISMUS ?2 HORIZONTAL MUSCLES/OSIndication for Planned Surgery / Procedure: strabismusRefer to Assessment section for details of any comorbidities.Patient is Able to Perform the Following Physical Activity:Climb a flight of stairs or walk up a hill (5.50 METs)Patient denies any chest pain or undue shortness of breath with the abovephysical activity.Patient's functional class is II based on self-reported physical activity.Significant Anesthesia Considerations: None. 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 trauma- Eye problem trauma os in 1992 nail penetrated OS- Uses contact lenses GP [facility] [id number]: PAST SURGICAL HISTORY OF Comment: lensectomy OSNo date: PAST SURGICAL HISTORY OF Comment: Internal fixation of left ankleNo date: PAST SURGICAL HISTORY OF Comment: Right ear drum graftFAMILY HISTORY None Mother None Father None Brother Heart Maternal Grandmother Diabetes Paternal Grandmother Heart Paternal Grandfather No Ocular Disease OtherSOCIAL HISTORYSocial History Marital status: Spouse name: Years of education: Number of children:Social History Main Topics Smoking status: Former Smoker Packs/day: 0.00 Years: 0.00 Comment: quit 2011 Alcohol use: Yes 18.0 oz/week 12 Cans of Beer (12oz) per weekMEDICATIONS/ALLERGIESNo current outpatient prescriptions on file.No current facility-administered medications for this visit.ALLERGIESNo Known AllergiesREVIEW OF SYSTEMSGeneral: No weight loss, malaise or fevers.Neuro: hx of headachesRespiratory: No history of current cough or dyspnea, or pneumonia in the past 6weeks. No history of respiratory/pulmonary symptoms or problems.Cardiovascular: rarely palpitations, denies chest painGI: No history of GI symptoms or problems. No history of esophageal varices,recent ascites, or ETOH greater than 2 drinks per day.: No history of UTI in past 6 weeks. No history of renal failure. Notcurrently on or requiring dialysis. No history of symptoms or problems.Endocrine: No history of diabetes. Has not taken steroids within the past 30days. No history of endocrinological symptoms or problems.Hematology: No history of bleeding or clotting disorder. No history ofhematological symptoms or problems.Oncology: No history of CA metastasis, chemo within 30 days, or radiotherapywithin 90 days. No history of oncological symptoms or problems.Psych: No history of psychiatric symptoms or problems.Skin: Negative for lesions, rash, and itching.PHYSICAL EXAMVITALS: BP 124/90 Pulse 74 Ht 5' 8ANDquot; (1.73m) Wt 212 lb (96.2kg) SpO2 97% BMI 32.24 kg/(m2).General: Alert and orientedSkin: Normal color, no rash, no lesions.HEENT: EOM, pupils equal, round and reactive.Cardiovascular: Normal S1 ANDamp; S2, no rubs, murmurs or gallops. No JVD. Pulseregular.Lungs: Normal breath sounds, no wheezes or crackles.Abdomen: Soft, non-tender, no rigidity.Extremities: No deformity, no edema or tenderness, no joint swelling orclubbing.Neurological: Normal cognition and motor skills.Pulses: radial pulses normal +2.ASSESSMENTMr. Mercer is a 35 year old male referred to me for preoperative evaluation.Patient has the following medical comorbidities which might affect theperioperative course: - No medical conditions.Patient's RCRI (Revised Cardiac Risk Index: CAD/CHF/Stroke or TIA/SCrANDgt;2/DMon Insulin/High Risk Surgery) score is 0 and is at low risk for major adversecardiac events in the perioperative period.Diagnostic tests reviewed for today's visit:No new labs or testsPLAN/RECOMMENDATIONSCARD IAC: Patient is at optimal cardiac condition for scheduled surgery / procedure.PULMONARY: Patient is at optimal Pulmonary status for scheduled surgery / procedure.Patient is optimally prepared for surgery.Patient Instructions: As per patient instructions section. General Preoperative/Medication/Fasti ng InstructionsI have discussed the above recommendations with the patient in detail, in frankand lay terms, and provided a written summary of instructions as needed. Wehave discussed that no surgery is without risk, but that the goal ofpreoperative assessment is to optimize that risk, and that was clearlyunderstood by the patient. I have given ample opportunity for the patient toask questions, and answered all questions to their stated satisfaction.SIGNATURE: Graciela Hoffman CNP PATIENT NAME: Sandhya Mercer JRDATE: August 24, 2016 : 2:29 PMGraciela Hoffman CNP 08/24/2016 2:31 PM Signed [facility]Patient Instructions for SurgeryFOOD INSTRUCTIONS:NO solid food or non-clear liquids for 8 hours prior to the arrival time foryour surgery. Unless you are instructed otherwise, you are allowed to drink upto 12 ounces of clear liquids (e.g. water, black tea/coffee, fruit juicewithout pulp, Ly Loren, etc.) up until 2 hours prior to the arrival time forsurgery.MEDICATION INSTRUCTIONS: Prior to Surgery:Do not take the following medications for 7 days prior to surgery: - any NSAID's (e.g. Motrin, Aleve, Arthrotec, Naproxen,etc) - Aspirin or aspirin containing productsYou are allowed to take Tylenol if needed until the day of surgery.MEDICATION INSTRUCTIONS: Day/Morning of Surgery:Do not take any medications.If you have any questions or concerns regarding today's visit please do nothesitate to contact the [facility] at [phone] or [phone], [phone].Signature: Graciela Hoffman CNPDate: August 24, 2016Referring Provider: MARLEEN FLORES I [[id number]]Allergies As of Date: 08/24/2016(No Known Allergies)Date Reviewed: 08/24/2016Reviewed by: Anna ([facility] [place] Wick - Fully AssessedReason for Visit: Pre-Op Exam [87]Primary Visit Diagnosis:Pre-operative examination [Z01.818] Other Visit Diagnoses:Aphakic open-angle glaucoma of left eye, 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 Unless you are instructed otherwise, you are allowed to drink up to 12 ounces of clear liquids (e.g. water, black tea/coffee, fruit juice without pulp, Ly Loren, etc.) up until 2 hours prior to the arrival time for surgery. MEDICATION INSTRUCTIONS: Prior to Surgery: Do not take the following medications for 7 days prior to surgery: - any NSAID's (e.g. Motrin, Aleve, Arthrotec, Naproxen,etc) - Aspirin or aspirin containing products You are allowed to take Tylenol if needed until the day of surgery. MEDICATION INSTRUCTIONS: Day/Morning of Surgery: Do not take any medications. If you have any questions or concerns regarding today's visit please do not hesitate to contact the [facility] at [phone] or [phone], [phone]. Signature: Graciela Hoffman CNP Date: August 24, 2016Encounter Number: [id number] Status:Closed by GRACIELA HOFFMAN CNP on 08/24/16 Normal [facility] HISTORY PHYSICALon HISTORY PHYSICAL HNO ID: [id number] thor: Graciela (Ines) DaltonService: (none)Author Type: Nurse PractitionerType: HANDPFiled: 08/24/2016 2:48 PMNote Text:HISTORY AND PHYSICAL EXAMINATION (IMPACT)SERVICE DATE: 08/24/2016SERVICE TIME: 2:29 [facility]: Sander Small Jr, MD (Inactive)CHIEF COMPLAINT/HISTORY OF PRESENT ILLNESS:Mr. Mercer is a 35 year old male referred to me for preoperativeevaluation. My final recommendations will be communicated back to therequesting physician/surgeon by the way of the shared medical record.Referring Surgeon: Dr. Dukes of Surgery: 08/30/16Planned Surgery/Procedure: REPAIR STRABISMUS ?2 HORIZONTAL MUSCLES/OSREPAIR STRABISMUS ?2 HORIZONTAL MUSCLES/OSIndication for Planned Surgery / Procedure: strabismusRefer to Assessment section for details of any comorbidities.Patient is Able to Perform the Following Physical Activity:Climb a flight of stairs or walk up a hill (5.50 METs)Patient denies any chest pain or undue shortness of breath with the abovephysical activity.Patient's functional class is II based on self-reported physical activity.Significant Anesthesia Considerations: None. 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 trauma- Eye problem trauma os in 1992 nail penetrated OS- Uses contact lenses GP [facility] [id number]: PAST SURGICAL HISTORY OF Comment: lensectomy OSNo date: PAST SURGICAL HISTORY OF Comment: Internal fixation of left ankleNo date: PAST SURGICAL HISTORY OF Comment: Right ear drum graftFAMILY HISTORY None Mother None Father None Brother Heart Maternal Grandmother Diabetes Paternal Grandmother Heart Paternal Grandfather No Ocular Disease OtherSOCIAL HISTORYSocial History Marital status: Spouse name: Years of education: Number of children:Social History Main Topics Smoking status: Former Smoker Packs/day: 0.00 Years: 0.00 Comment: quit 2011 Alcohol use: Yes 18.0 oz/week 12 Cans of Beer (12oz) per weekMEDICATIONS/ALLERGIESNo current outpatient prescriptions on file.No current facility-administered medications for this visit.ALLERGIESNo Known AllergiesREVIEW OF SYSTEMSGeneral: No weight loss, malaise or fevers.Neuro: hx of headachesRespiratory: No history of current cough or dyspnea, or pneumonia in thepast 6 weeks. No history of respiratory/pulmonary symptoms or problems.Cardiovascular: rarely palpitations, denies chest painGI: No history of GI symptoms or problems. No history of esophagealvarices, recent ascites, or ETOH greater than 2 drinks per day.: No history of UTI in past 6 weeks. No history of renal failure. Notcurrently on or requiring dialysis. No history of symptoms or problems.Endocrine: No history of diabetes. Has not taken steroids within the past30 days. No history of endocrinological symptoms or problems.Hematology: No history of bleeding or clotting disorder. No history ofhematological symptoms or problems.Oncology: No history of CA metastasis, chemo within 30 days, orradiotherapy within 90 days. No history of oncological symptoms orproblems.Psych: No history of psychiatric symptoms or problems.Skin: Negative for lesions, rash, and itching.PHYSICAL EXAMVITALS: BP 124/90 Pulse 74 Ht 5' 8 (1.73m) Wt 212 lb (96.2kg) SpO2 97% BMI 32.24 kg/(m2).General: Alert and orientedSkin: Normal color, no rash, no lesions.HEENT: EOM, pupils equal, round and reactive.Cardiovascular: Normal S1 AND S2, no rubs, murmurs or gallops. No JVD. Pulseregular.Lungs: Normal breath sounds, no wheezes or crackles.Abdomen: Soft, non-tender, no rigidity.Extremities: No deformity, no edema or tenderness, no joint swelling orclubbing.Neurological: Normal cognition and motor skills.Pulses: radial pulses normal +2.ASSESSMENTMr. Mercer is a 35 year old male referred to dc for preoperativeevaluation. Patient has the following medical comorbidities which mightaffect the perioperative course: - No medical conditions.Patient's RCRI (Revised Cardiac Risk Index: CAD/CHF/Stroke or TIA/SCr>2/DMon Insulin/High Risk Surgery) score is 0 and is at low risk for majoradverse cardiac events in the perioperative period.Diagnostic tests reviewed for today's visit:No new labs or testsPLAN/RECOMMENDATIONSCARD IAC: Patient is at optimal cardiac condition for scheduled surgery /procedure.PULMONARY: Patient is at optimal Pulmonary status for scheduled surgery /procedure.Patient is optimally prepared for surgery.Patient Instructions: As per patient instructions section. General Preoperative/Medication/Fasti ng InstructionsI have discussed the above recommendations with the patient in detail, infrank and lay terms, and provided a written summary of instructions asneeded. We have discussed that no surgery is without risk, but that thegoal of preoperative assessment is to optimize that risk, and that wasclearly understood by the patient. I have given ample opportunity for thepatient to ask questions, and answered all questions to their statedsatisfaction.SIGNATURE: Graciela Hoffman CNP PATIENT NAME: Sandhya Mercer DATE: August 24, 2016 : 2:29 PM Normal [facility] 08-24-2016 HOSP Office Visit OPHT (OPHTMN) -SANDHYA MERCER ([id number]) 1980 MDate Time Provider Department08/24/16 1:30 PM MARLEEN FLORES I OPHN During your visit today, we recorded the following information about you:Marleen Flores MD 08/24/2016 2:14 PM Signed1. LXT and RHT. DIscussed with patient possibility of double vision when eyesare going to be straighter. He agrees to proceed. We will only address thehorizontal misalignment at this time.I have confirmed and edited as necessary the relevant ophthalmic history, ROS,and the neuro exam findings as obtained by others. I have seen and examinedthis patient.I have discussed the case and the management of this patient's care with theResident/Fellow, if applicable. I also have reviewed and agree with theassessment and plan as stated above and agree with all of its relevantcomponents.Marleen Flores MD August 24, 2016 2:12 PMReferring Provider: MARLEEN FLORES I [[id number]]Allergies As of Date: 08/24/2016(No Known Allergies)Date Reviewed: 08/18/2016Reviewed by: Kyle May AssessedReason for Visit: Pre-Op Exam [87]Primary Visit Diagnosis:Aphakia, 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] Other Visit Diagnoses:Monocular exotropia of left eye [H50.112] Diplopia [H53.2]Problem List As Of Date 08/24/2016 Noted Resolved Changes in consciousness [R40.4] INVALID FOR* Confusion with nonfocal neurological examinatio*INVALID FOR* Aphakia [H27.00] INVALID FOR* Status:Closed by MARLEEN FLORES MD, I on 08/24/16 [facility] PROGRESSon 08-24-2016 PROGRESS HNO ID: [id number] thor: Boris Keenan (Clpn): (none)Author Type: LICENSED NURSEType: Progress NotesFiled: 08/24/2016 2:37 PMNote Text:THE FOLLOWING WAS EVALUATED Motivation To Learn: Interested Family/Significant Other Support: : Unable to assess - Family notpresent Cognitive Ability: Alert and orientedPatient Learns Best By: Individual InstructionThe Following Influencing Factors Were Barriers To This Education Session: noneReligious Factors: No barriersThe Following Physical Limitations Were Barriers To This EducationSession:None Instruction Provided To: Patient and No one available Learning Topic: Procedure/Surgery: preop instructions Patient Evaluation: Verbalizes understanding Yes Follow Up Plan: No Need for follow up Supplemental Material Given:Written MaterialInstructed By [facility] PROGRESS HNO ID: [id number] thor: Boris Keenan (Clpn): (none)Author Type: LICENSED NURSEType: Progress NotesFiled: 08/24/2016 2:48 PMNote Text:Consulted by: Dr. FloresType of Surgery: REPAIR STRABISMUS ?2 HORIZONTAL MUSCLES/OSPatient scheduled for surgery on: 08/30/16re you experiencing any eye pain?noDo you have a history of sleep apnea?noDo you Have a pacemaker or an ICD?noDo you or any of your family members have a history of malignanthyperthermia?noAre you an Insulin dependent Diabetic?noHCG needed?n/Uriel SteinP.NBryan [facility] PROGRESS HNO ID: [id number] thor: Keturah Meza: (none)Author Type: PhysicianType: Progress NotesFiled: 08/24/2016 2:14 PMNote Text:1. LXT and RHT. DIscussed with patient possibility of double vision wheneyes are going to be straighter. He agrees to proceed. We will onlyaddress the horizontal misalignment at this time.I have confirmed and edited as necessary the relevant ophthalmic history,ROS, and the neuro exam findings as obtained by others. I have seen andexamined this patient.I have discussed the case and the management of this patient's care withthe Resident/Fellow, if applicable. I also have reviewed and agree withthe assessment and plan as stated above and agree with all of its relevantcomponents.Marleen Flores MD August 24, 2016 2:12 PM Normal [facility] Vital Signs Date Time Vital Sign Value Performing Clinician Facility 05-07-2021 12:00-0500 Body height 172.72 cm Simon Pink Other [facility] Other 05-07-2021 12:00-0500 Body mass index (BMI) [Ratio] 32.54 kg/m2 Simon Josemaryam Other [facility] Other 05-07-2021 12:00-0500 Body weight 97.07 kg Simon Josemaryam Other [facility] Other 03-19-2021 12:15-0500 Body height 172.72 cm Simon Apryl Other [facility] Other 03-19-2021 12:15-0500 Body mass index (BMI) [Ratio] 32.69 kg/m2 Simon Josemaryam Other [facility] Other 03-19-2021 12:15-0500 Body weight 97.52 kg Simon Pink Other [facility] Other 02-05-2021 11:15-0500 Body height 172.72 cm Simon Pink Other [facility] Other 02-05-2021 11:15-0500 Body mass index (BMI) [Ratio] 33.3 kg/m2 Simon Pink Other [facility] Other 02-05-2021 11:15-0500 Body weight 99.34 kg Simon Pink Other [facility] Other 02-05-2021 11:15-0500 Diastolic blood pressure 96 mm[Hg] Simon Pink Other [facility] Other 02-05-2021 11:15-0500 Systolic blood pressure 134 mm[Hg] Simon Pink Other [facility] Other 12-15-2020 11:45-0400 Body height 172.72 cm Simon Pink Other [facility] Other 12-15-2020 11:45-0400 Body mass index (BMI) [Ratio] 31.93 kg/m2 Simon Pink Other [facility] Other 12-15-2020 11:45-0400 Body weight 95.26 kg Simon Pink Other [facility] Other Encounters Encounter Date Encounter Type Care Provider Facility Start: 04-14-2022 ambulatory LILIYA CERRATO Facility: [facility] Start: 02-01-2022 End: 02-01-2022 ambulatory LILIYA CERRATO Facility:[facility] Start: 01-12-2022 End: 01-12-2022 ambulatory Kendall Brown Other [facility] Other Start: 01-12-2022 Telephone encounter Kendall Ventura ck [facility] Start: 09-07-2021 End: 09-07-2021 ambulatory Simon Pink Other [facility] Other Start: 09-07-2021 Telephone encounter Simon Garciamaryam [facility] Start: 05-07-2021 End: 05-07-2021 ambulatory Simon Pink Other [facility] Other Start: 05-07-2021 Office outpatient visit 15 minutes Simon Josemaryam [facility] Start: 03-19-2021 End: 03-19-2021 ambulatory Simon Apryl Other [facility] Other Start: 03-19-2021 Office outpatient visit 25 minutes Simon Josemaryam [facility] Start: 03-04-2021 End: 03-04-2021 ambulatory Simon Apryl Other [facility] Other Start: 03-04-2021 Telephone encounter Simon Pink [facility] Start: 02-05-2021 End: 02-05-2021 ambulatory Simon Apryl Other [facility] Other Start: 02-05-2021 Office outpatient visit 15 minutes Simon Josemaryam [facility] Start: 12-25-2020 Telephone encounter Simon Josemaryam [facility] Start: 12-19-2020 Telephone encounter Simon Apryl [facility] Start: 12-15-2020 Encounter by maggy Montes Josemaryam [facility] Start: 12-15-2020 Office outpatient visit 25 minutes Simon Pink [facility] Start: 09-02-2016 End: 09-03-2016 [facility]: 09-01-2016 End: 09-02-2016 Ambulatory MARLEEN FLORES [facility] Start: 09-01-2016 End: 09-07-2016 Ambulatory REECHA (OD) SHRUTHI [facility] Start: 08-30-2016 End: 08-30-2016 Ambulatory MARLEEN FLORES [facility] Start: 08-24-2016 Ambulatory MARLEEN FLORES [facility] Start: 08-24-2016 End: 08-25-2016 Ambulatory MARLEEN FLORES [facility] Immunizations Immunization Date Immunization Notes Care Provider Elizabeth merchant 09-13-2016 Toradol per 15 mg Simon Garciake s Other [facility] Other 10-30-2015 Toradol per 15 mg Simon Dey s Other [facility] Other 10-05-2012 Depo-Medrol 40 mg Simon Dey s Other [facility] Other Payers Date Payer Category Payer Unknown [id number] 1979 Unknown [id number] 1960 Self-pay [id number] 1960 Unknown [id number] Social History Date Type Detail Facility Sex Assigned At [facility] Other Evaluation note 05-07-2021 Note Date & Type Note Facility 05-07-2021 Evaluation note Encounter Date Diagnosis Assessment Notes Apr, Irritable bowel syndrome with diarrhea (ICD-10 - K58.0) CONTINUE DICYCLOMINE NEEDED PT GIVEN COPY OF LOW FODMAP DIET RTO 8 WEEKS Apr, GERD (gastroesopha geal reflux disease) (ICD-10 - K21.9) [facility] Other Evaluation note 02-05-2021 Note Date & Type Note Facility 02-05-2021 Evaluation note Encounter Date Diagnosis Assessment Notes Jan, Exocrine pancreatic insufficiency (ICD-10 - K86.81) CONTINUE ZENPEP Jan, Irritable bowel syndrome with diarrhea (ICD-10 - K58.0) Jan, GERD (gastroesophageal reflux disease) (ICD-10 - K21.9) Jan, Other START DICYCLOMINE 20MG BID [facility] Other Evaluation note 12-19-2020 Note Date & Type Note Facility 12-19-2020 Evaluation note Encounter Date Diagnosis Assessment Notes Nov, Diarrhea (ICD-10 - R19.7) [facility] Other Evaluation note 12-15-2020 Note Date & Type Note Facility 12-15-2020 Evaluation note Encounter Date Diagnosis Assessment Notes Nov, GERD (gastroesophagea l reflux disease) (ICD-10 - K21.9) CONTINUE PANTOPRAZOLE WITHOUT CHANGE RTO ONE MONTH Nov, Exocrine pancreatic insufficiency (ICD-10 - K86.81) START TRIAL OF ZENPEP 40,000 TID WITH MEALS ( SAMPLES GIVEN TO PT) Nov, Abdominal pain (ICD-10 - R10.9) Nov, Diarrhea (ICD-10 - R19.7) [facility] Other Clinical Note 02-06-2020 Note Date & Type Note Facility 02-06-2020 Note Chief Complaint referral for indigestion HPI Staff 39 year old male presents on consultation from Criss Cerrato NP for indigestion. Present since July-August. Complains of LUQ pain since September. CT ABD/pelvis completed 11/2019 with diverticulosis. Denies nausea or vomiting. Awakes in the morning with burning in throat and unable to breath . Spicy, processed and fried foods increase sx's. Coffee and soda increase indigestion. Taking Omeprazole and Carafate without relief. History of Present Illness 39 yo male with several month h/o worsening GERD and intermittent postprandial LUQ/epigastric pain, ache, no radiation, worse with spicy or acidic foods or caffeine; worse at night, keeps him awake, occasionally wakes up with burning in throat and SOB; no N/V; lasts for several hours; some improvement with omeprazole, recently started on Carafate as well with some improvement; no dysphagia or odynophagia, no wt loss or wt gain; denies asa or NSAID use, no change in bms or blood in stools; only abdominal operation appendectomy in 2017; no previous endoscopy; normal abdominal/pelvic ct scan in November, images reviewed. no tobacco use. no fmhx of GI malignancy or IBD. Review of Systems PHQ Score Initial Depression Screen Score: 0 ROS - Provider Constitutional: no fever, no sweats, no weight loss. Eyes: no glasses, no blurred vision, no visual loss. ENMT: no dentures, no hoarseness, no swallowing difficulties, no hearing loss, no ear infection(s), no nose bleeds. Cardiovascular: normal blood pressure, no chest pain, regular heartbeat, no heart murmur. Respiratory: no shortness of breath, no cough, no asthma, no wheezing. Gastrointestinal: no nausea, no vomiting, no diarrhea, no constipation, no blood in stool, no change in bowel habits, mild abdominal pain, no hepatitis. Genitourinary: no kidney stones, no urine infection, no dysuria. Musculoskeletal: no pain, no weakness. Skin: no changing moles, no rash, no skin lumps. Neurologic: no seizures, no epilepsy, no headache. Psychiatric: no emotional or psychiatric problem. Heme/Lymph: no bleeding problems, no anemia, no blood clots, no transfusions. Allergy/Immunologic: no swollen lymph nodes/glands, no IV drug abuse. Other: Additional ROS info: Except as noted in the above Review of Systems and in the History of Present Illness, all other systems have been reviewed and are negative or noncontributory. Physical Exam Vitals & Measurements T: 36.9 ?C (Tympanic) HR: 80(Peripheral) RR: 16 BP: 136/86 HT: 172.72 cm HT: 172.7 cm WT: 97.0 kg WT: 97.0 kg BMI: 32.52 HEENT: normal conjunctiva, sclera clear, no scleral icterus, EOM intact, PERRLA, oral mucosa moist without lesions. Neck: trachea midline, no mass, symmetric, no thyromegaly or nodules, no adenopathy Respiratory: lungs CTA, respirations non labored. Cardiovascular: regular rate and rhythm, no murmur, no pedal edema or varicosities. Gastrointestinal: soft, non distended, mild tenderness, epitastrium and LUQ, no peritoneal signs; no masses, no palpable hernias, diastasis recti no, no hepatosplenomegaly; normal bs Lymphatic: no cervical adenopathy, no axillary adenopathy, Musculoskeletal: normal gait, digits and nails without infection, nodes, cyanosis, clubbing. Skin: no rashes, no lesions, no ulcers, no subcutaneous nodules, induration. Psychiatric/Neuro: oriented to time, place, person, judgement normal, affect appropriate for age, insight intact, no focal deficits. Tests: x-rays reviewed, review of old records completed, Discussed surgical options, risks, and possible complications with patient. Assessment/Plan 1. GERD (gastroesophageal reflux disease) (K21.9: Gastro-esophageal reflux disease without esophagitis) plan EGD under anesthesia for further evaluation, informed consent obtained. patient understands the risks associated with COVID-19, and the need for preoperative testing with self-isolation until the procedure. 2. Epigastric pain (R10.13: Epigastric pain) see # 1 3. Abdominal pain, left upper quadrant (R10.12: Left upper quadrant pain) see # 1 Follow-up No qualifying data available Problem List/Past Medical History Ongoing Abdominal pain, left upper quadrant Chronic tension headaches Epigastric pain Genital herpes simplex GERD (gastroesophageal reflux disease) Hyperlipidemia Insomnia Low hemoglobin Historical No qualifying data Procedure/Surgical History Appendectomy (02/29/2016), Amputation of thumb, Eye surgery, History of ankle surgery, Perforated eardrum. Medications Carafate 1 gram Tab, 1 gm= 1 tab(s), Oral, QID ibuprofen 800 mg Tab, 800 mg= 1 tab(s), Oral, QID, PRN Iron 100 Plus, 1 tab(s), Oral, Daily Multivitamin, Therapeutic w/ Minerals, 1 tab(s), Oral, Daily omeprazole 40 mg Cap-DR, 40 mg= 1 cap(s), Oral, Daily tiZANidine 4 mg Tab, 4 mg= 1 tab(s), Oral, Daily, PRN traZODONE 50 mg Tab, 50 mg= 1 tab(s), Oral, Once a day (at bedtime), PRN Valtrex 500 mg Tab, 500 mg (more content not included)... [facility] Comment on above: Result Comment: Elec tronically Signed By: VAN MALONE, Rayo Mascorro\Date and Time Signed: 02/06/20 15:55 EST Evaluation note Note Date & Type Note Facility Evaluation note No Information [facility] Other Evaluation note Note Date & Type Note Facility Evaluation note [facility] Other History general Narrative - Reported Note Date & Type Note Facility History general Narrative - Reported Type Medical History GERD Surgical History optical lens removed Surgical History wisdom teeth extract Surgical History pins in the lt ankle and remova l Surgical History reattached thumb Hospitalization History see surgical hx [facility] Other History general Narrative - Reported Note Date & Type Note Facility History general Narrative - Reported [facility] Other History general Narrative - Reported Note Date & Type Note Facility History general Narrative - Reported Type Medical History GERD Medical History IBS Surgical History optical lens removed Surgical History wisdom teeth extract Surgical History pins in the lt ankle and remova l Surgical History reattached thumb Hospitalization History see surgical hx [facility] Other Summary Purpose Family History No Family History Records FoundNo Family History Records FoundNo Family History Records FoundNo Family History Records Found Advance Directives No Advanced Directives Records FoundNo Advanced Directives Records FoundNo Advanced Directives Records FoundNo Advanced Directives Records Found Additional Source Comments (unrecognized sect ion and content) No Status Records FoundNo Status Records FoundNo Status Records FoundNo Status Records Found INFORMATION SOURCE (unrecogn ized section and content) DATE CREATED AUTHOR 08/24/2017 [facility] DATE CREATED AUTHOR AUTHOR'S ORGANIZ ATION 07/26/[address] [facility] DATE CREATED AUTHOR AUTHOR'S ORGANIZ ATION 03/14/2021 [facility] DATE CREATED AUTHOR AUTHOR'S ORGANIZ ATION 04/14/2022 [facility] REASON FOR VISIT (unrecogniz ed section and content) PT HERE WITH COMPLAINTS OF A BDOMINAL PAINUpdate Demographics - Additional InfoClinical Acute IllnessSTOOL RESULTSPATIENT HERE FOR 4-6 WEEK FOLLOW UPClinical Acute IllnessPATIENT HERE FOR FOLLOW UP. PATIENT WAS TO START ON THE PREDNISONEREFILLRefills FOR RECORDS PERTAINING TO PATIENTS WHO ARE OR HAVE BEEN ENROLLED IN A CHEMICAL DEPENDENCY/SUBSTANCEABUSE PROGRAM, SOME INFORMATION MAY BE OMITTED. This clinical summary was aggregated from multiple sources. Caution should be exercised in using it in the provision of clinical care. This summary normalizes information from multiple sources, and as a consequence, information in this document may materially change the coding, format and clinical context of patient data. In addition, data may be omitted in some cases. CLINICAL DECISIONS SHOULD BE BASED ON THE PRIMARY CLINICAL RECORDS. [facility] [employer] [facility]. provides no warranty or guarantee of the accuracy or completeness of information in this document.
== END 2023-02-18 09:56 | disposition home or self-care (01) ==
LOC: US 09:55
PROVIDERS: PCP Nurse Practitioner Family; Visit Provider Nurse Practitioner Family
DX: N50.819 Testicular pain, unspecified (principal)
CPT/HCPCS: 76770; 76870

== ENCOUNTER 2023-04-11 12:00 | Outpatient (OUT) | payer OTHER, SELFPAY ==
--- OUTSIDE RECORDS SUMMARY | 2023-04-11 12:03 | XMS_ITS | CCD ---
Author Name Unknown Address [address] [place] [address] Organization [facility] Care Team Providers Care Power Press Tender Name Role Phone TRABOULSI, MARLEEN Unavailable Unavailable TRABOULSI, MARLEEN Unavailable Unavailable NOAH SOARES (VENEER STOCK LAYER) Unavailable Unavail able TRABOULSI, MARLEEN Unavailable Unavailable TRABOULSI, MARLEEN Unavailable Unavailable TRABOULSI, MARLEEN Unavailable Unavailable TRABOULSI, MARLEEN Unavailable Unavailable KAMPANI, REECHA (OD) Unavailable Unavailable KAMPANI, REECHA (OD) Unavailable Unavailable TRABOULSI, MARLEEN Unavailable Unavailable TRABOULSI, MARLEEN Unavailable Unavailable KAMPANI, REECHA (OD) Unavailable Unavailable Simon Pink Unavailable Kendall Brown Unavailable SHARRON CERRATO Admitting Unavailable SHARRON CERRATO Attending Unavailable SHARRON CERRATO Primary Care Unavailable SHARRON CERRATO Admitting Unavailable SHARRON CERRATO Attending Unavailable SHARRON CERRATO Consulting Unavailable SHARRON CERRATO Primary Care Unavailable Francesco ALSTON Attending Unavailable SHARRON CERRATO Referring Unavailable NETO Cerrato Primary Care Provider MYKE Ambrocio Emergency Provider Ray Ambrocio Attending Unavailable Ray Ambrocio Admitting Unavailable Sharron Cerrato Primary Care Unavailable Allergies Allergy Classification Reported Allergen(s) Allergy Type Date of Onset Reaction(s) Facility (1 source) No Known Medication Allergies; Translations: [No Known Medication Allergies] Propensity to adverse reactions (disorder) [facility] Repository Medications Current Medications Medication Drug Class(es) Dates Sig (Normalized) Sig (Original) amylase 654927 unt / lipase 84380 unt / protease 361710 unt delayed release oral capsule (7 sources) Start: 12-15-2020 Start: 12-15-2020 take 05387-193451 [I U] by mouth three times daily Zenpep 46526-042855 UNIT as directed Orally tid for 30 [...] a day Active Pantoprazole Sod ium Active polyethylene glycol 3350 79605 mg powder for oral solution (1 source) Osmotic Laxative Start: 06-05-2020 Polyethylene Glycol 3350 (Miralax) 17 gram/dose powder Active 17 GM PO Daily June 04, 2020 11:00pm predniSONE 20 mg oral tablet (2 sources) Start: 04-07-2023 take 60 mg by mouth once daily at mealtime Prednisone Active 60 MG PO Daily April 07, 2023 12:00am administer with food or milk Start: 03-19-2021 take 1 tablet by mouth every t wenty-four hours traZODone (10 sources) Serotonin Reuptake Inhibitor traZODone HCl Ac tive valACYclovir 500 mg oral tablet (11 sources) Herpesvirus Nucleoside Analog DNA Polymerase Inhibitor, Herpes Simplex Virus Nucleoside Analog DNA Polymerase Inhibitor, Herpes Zoster Virus Nucleoside Analog DNA Polymerase Inhibitor Start: 06-05-2020 take 500 mg by mouth once daily Valacyclovir Active 500 MG PO Daily June 04, 2020 11:00pm valACYclovir HCl Active vancomycin 125 mg oral capsule (1 source) Glycopeptide Antibacterial Start: 12-25-2020 take 1 capsule by mouth every twelve hours Vancomycin HCl 125 MG 1 capsule Orally bid for 10 days Nov, Active Completed/Discontinued Medications Medication Drug Class(es) Dates Sig (Normalized) Sig (Original) acetaminophen 325 mg / oxyCODONE hydrochloride 5 mg oral tablet (1 source) Opioid Agonist Start: 01-31-2017 End: 06-05-2020 take 2 tablets by mouth every six hours as needed for pain Oxycodone-Acetamin ophen (Percocet) 5-325 mg tablet Discontinued 2 TAB PO Q6H 45 January 31, 2017 June 05, 2020 12:14pm 1-2 po q 6 hours prn pain Crutches Underarm Crutches (4 sources) Start: 09-13-2016 Crutches Underarm Crutches as directed underarm as directed for days Aug, Not-Taking docusate sodium 100 mg oral capsule (1 source) Start: 01-31-2017 End: 06-05-2020 take 100 mg by mouth twice daily Docusate Sodium Discontinued 100 MG PO Twice daily 60 January 31, 2017 12:00am June 05, 2020 12:14pm ibuprofen 800 mg oral tablet (1 source) Nonsteroidal Anti-inflammatory Drug Start: 01-30-2017 End: 06-05-2020 take 800 mg by mouth three times daily Ibuprofen Discontinued 800 MG PO Three times daily January 30, 2017 12:00am June 05, 2020 12:14pm indomethacin 25 mg oral capsule (8 sources) Nonsteroidal Anti-inflammatory Drug Start: 09-13-2016 take 1 capsule by mouth every twelve hours Indomethacin 25 MG 1 capsule with food or milk Orally Twice a day for 30 day(s) Aug, Not-Taking Start: 09-13-2016 take 1 capsule by mo uth every twelve hours Indomethacin 50 MG 1 capsule with food or milk Orally Twice a day for 10 days Aug, Not-Taking Ketorolac (6 sources) Nonsteroidal Anti-inflammatory Drug, Cyclooxygenase Inhibitor Start: 09-13-2016 Toradol p er 15 mg Aug, 60 mg Start: 10-30-2015 Toradol per 15 mg Oct, 60 mg methylPREDNISolone (3 sources) Corticosteroid Start: 10-05-2012 Depo-Medrol 40 mg Sep, 40 mg omeprazole 40 mg delayed release oral capsule (1 source) Proton Pump Inhibitor Start: 06-05-2020 End: 06-11-2020 take 40 mg by mouth twice daily Omeprazole Discontinued 40 MG PO Twice daily June 04, 2020 11:00pm June 11, 2020 9:19am Post-OP Shoe/Soft Top Men - (4 sources) Start: 09-13-2016 Post-OP Shoe/Soft Top Men - as directed post-op shoe as directed for days Aug, Not-Taking sucralfate 1000 mg oral tablet (1 source) Aluminum Complex Start: 06-05-2020 End: 06-11-2020 Sucralfate Discontinued 1 GM PO Four times daily June 04, 2020 11:00pm June 11, 2020 9:19am Patient does not take this as prescribed. tiZANidine 4 mg oral tablet (5 sources) Central alpha-2 Adrenergic Agonist Start: 06-05-2020 End: 06-11-2020 take 4 mg by mouth once daily Tizanidine Discontinued 4 MG PO Daily June 04, 2020 11:00pm June 11, 2020 9:19am tiZANidine HCl N ot-Taking Problems Active Problems Problem Classification Problem Date Documented Da te Episodic/Chronic Abdominal pain (12 sources) Abdominal pain; Translations: [Unspecified abdominal pain] Onset: 1 Resolved: 1 Episodic Appendicitis and other appendiceal conditions (1 source) Appendicitis; Translations: [Unspecified appendicitis] 02-09-2023 Episodic Esophageal disorders (14 sources) Gastroesophageal reflux [...] 1 Resolved: 2 Chronic Other gastrointestinal disorders (11 sources) Constipation; Translations: [Constipation, unspecified] 02-09-2023 Episodic Other gastrointestinal disorders (10 sources) Diarrhea; Translations: [Diarrhea, unspecified] Episodic Other upper respiratory infections (1 source) Acute upper respiratory infection, unspecified; Translations: [ACUTE UP RESPIRATORY INFECTION UNS] Onset: 2 Episodic Pancreatic disorders (not diabetes) (13 sources) Exocrine pancreatic insufficiency; Translations: [Exocrine pancreatic insufficiency] Onset: 1 Resolved: 2 Episodic Spondylosis; intervertebral disc disorders; other back problems (1 source) Nerve root disorder; Translations: [Radiculopathy, site unspecified] 04-07-2023 Episodic Unclassified (2 sources) CONTACT W/AND (SUSP) [...] Test Name Value Interpretation Reference Range Facility Bilirubin Test strip Ql (U)O rdered By: Ray Ambrocio on 04-07-2023 Bilirubin Ql (U) Negative Negative [facility] Chlamydia/GC/Trich NAAon Chlamydia Trachomotis, HEATH Negative Normal Negative [facility] Comment on above: Performed By: #### G CCHLAMTRI #### [facility] , #### UA #### [facility] [address] Neisseria Gonorrhoeae, HEATH Negative Normal Negative [facility] Comment on above: Performed By: #### G CCHLAMTRI #### [facility] , #### UA #### [facility] [address] [place] [address] [place] Trichomonas HEATH Negative Normal Negative [facility] Comment on above: Result Comment: Perf ormed at: =G - [facility] [address] [place] [id number] Flour Worker: Donna Ruiz MD, Phone: [phone] PERFORMED BY: [facility] [address] [place] [address] PATHOLOGIST GIS GEOGRAPHER MONTY VARELA M.D. Performed By: #### G CCHLAMTRI #### [facility] , #### UA #### [address] Color Auto (U)Ordered By: Stephen Ambrocio on 04-07-2023 Color (U) Yellow Yellow [facility] Ketones Auto test strip (U) [Mass/Vol]Ordered By: Ray Ambrocio on 04-07-2023 Ketones (U) [Mass/Vol] Negative Negative [facility] Nitrite Test strip Ql (U)Ord ered By: Ray Ambrocio on 04-07-2023 Nitrite Ql (U) Negative Negative [facility] Protein Auto test strip (U) [Mass/Vol]Ordered By: Ray Ambrocio on 04-07-2023 Protein (U) [Mass/Vol] Negative Negative [facility] Specific gravity Auto test s trip (U) [Rel density]Ordered By: Ray Ambrocio on 04-07-2023 Specific gravity (U) [Rel density] 1.020 1.001-1.030 [facility] US scrotumon 04-07-2023 US scrotum [facility] [place] [address] [place] [address] Ultrasound Report Signed Patient: Sandhya Mercer JR MR#: [id number] : 1980 Acct:[id number] Age/Sex: 42 / M ADM Date: 04/07/23 Loc: ER Room: Type: [facility] ER Attending Dr: Ordering Provider: Ray Ambrocio APRN Date of Service: 04/07/23 US/US scrotum: Right testicle pain 5mos Copies to: Ray Ambrocio APRN EXAMINATION TYPE: US scrotum grayscale, color Doppler, waveform duplex analysis was performed. DATE OF EXAM ORDERED: 04/07/2023 12:48 PM HISTORY: Right testicular and back pain COMPARISON: NONE TECHNIQUE: Realtime imaging of the scrotum was performed. Rush scale, color Doppler and spectral Doppler imaging of the testicles was performed. FINDINGS: Testicles: Both testicles demonstrate homogeneous echotexture without intratesticular filling defect. Right measurements: 5.3 x 2.3 x 3.7 cm Left measurements: 5.7 x 2.3 x 3.2 cm Epididymis: The left epididymal head is slightly heterogeneous. The bilateral epididymal are otherwise within normal limits. Right measurements: 0.7 x 1.1 x 1.4 cm Left measurements: 0.8 x 1.3 x 1.2 cm Hydrocele: None. Doppler ultrasound of the testicles: Arterial and venous waveforms are seen within both testicles. No sonographic evidence of testicular ischemia. There is a small left-sided varicocele noted. US/US scrotum IMPRESSION: 1. The testicles are normal in size and echogenicity. No intratesticular lesions. 2. No sonographic evidence of testicular ischemia. 3. There is a small left-sided varicocele noted. 4. There is nonspecific mild heterogeneity of the left epididymal head. Impression dictated by: Daniel Corea M.D.04/07/2023 1:46 PM Dictation Location: [place] [address] Tech: Cyndie Church Transcribed By: MARLI 04/07/23 1346 Dictated By: Daniel Corea II, MD 04/07/23 1344 Signed By: 04/07/23 1346 Normal [facility] Urinalysison 04-07-2023 Appearance (U) Clear Normal Clear [facility] Comment on above: Order Comment: Name Collection Type:: Voided Performed By: #### G CCHLAMTRI #### [facility] , #### UA #### [facility] [address] Bilirubin,Urine Negative Normal Negative [facility] Comment on above: Order Comment: Name Collection Type:: Voided Performed By: #### G CCHLAMTRI #### [facility] , #### UA #### [facility] [address] [place] [address] [place] Color (U) Yellow Normal Yellow [facility] Comment on above: Order Comment: Name Collection Type:: Voided Performed By: #### G CCHLAMTRI #### [facility] , #### UA #### [facility] [address] Glucose Ql (U) Normal Normal Normal [facility] Comment on above: Order Comment: Name Collection Type:: Voided Performed By: #### G CCHLAMTRI #### [facility] , #### UA #### [facility] [address] [place] [address] [place] Ketones Ql (U) Negative Normal Negative [facility] Comment on above: Order Comment: Name Collection Type:: Voided Performed By: #### G CCHLAMTRI #### [facility] , #### UA #### [facility] [address] [place] [address] Leukocyte esterase Test strip Ql (U) Negative Normal Negative [facility] Comment on above: Order Comment: Name Collection Type:: Voided Performed By: #### G CCHLAMTRI #### [facility] , #### UA #### [facility] [address] [place] [address] [place] Nitrite,Urine Negative Normal Negative [facility] Comment on above: Order Comment: Name Collection Type:: Voided Performed By: #### G CCHLAMTRI #### [facility] , #### UA #### [facility] [address] [place] [address] Occult Blood,Urine Negative Normal Negative [facility] Comment on above: Order Comment: Name Collection Type:: Voided Result Comment: PERF ORMED BY: [place] [address] PATHOLOGIST GIS GEOGRAPHER MONTY VARELA M.D. Performed By: #### G CCHLAMTRI #### [facility] , #### UA #### [facility] [address] [place] [address] pH (U) 6.5 [pH] Normal 5.0-9.0 [facility] Comment on above: Order Comment: Name Collection Type:: Voided Performed By: #### G CCHLAMTRI #### [facility] , #### UA #### [facility] [address] [place] [address] Protein,Urine Negative Normal Negative [facility] Comment on above: Order Comment: Name Collection Type:: Voided Performed By: #### G CCHLAMTRI #### [facility] , #### UA #### [facility] [address] [place] [address] Specificy [place],Urine 1.020 Normal 1.001-1.030 [facility] Comment on above: Order Comment: Name Collection Type:: Voided Performed By: #### G CCHLAMTRI #### [facility] , #### UA #### [facility] [address] [place] [address] Urobilinogen,Urine Normal Normal Normal [facility] Comment on above: Order Comment: Name Collection Type:: Voided Performed By: #### G CCHLAMTRI #### [facility] , #### UA #### [facility] [address] [place] [address] Urine clarity by refractomet ry automatedOrdered By: Ray Ambrocio on 04-07-2023 Clarity Refractometry automated (U) Clear Clear [facility] Urine glucose measurement by automated test strip (mass/volume)Ordered By: Ray Ambrocio on 04-07-2023 Glucose Auto test strip (U) [Mass/Vol] Normal mg/dL Normal [facility] Urine hemoglobin detection b y automated test stripOrdered By: Ray Ambrocio on 04-07-2023 Hemoglobin Auto test strip Ql (U) Negative Negative [facility] Urine leukocyte esterase det ection by automated test stripOrdered By: Ray Ambrocio on 04-07-2023 Leukocyte esterase Auto test strip Ql (U) Negative Negative [facility] Urobilinogen Auto test strip (U) [Mass/Vol]Ordered By: Ray Ambrocio on 04-07-2023 Urobilinogen (U) [Mass/Vol] Normal mg/dL Normal [facility] pH Auto test strip (U)Ordere d By: Ray Lolly on 04-07-2023 pH (U) 6.5 [pH] 5.0-9.0 [facility] Covid-19 PCR (CVDTB)on SARS-CoV-2 (COVID-19) RNA HEATH+probe Ql (Unsp spec) Detected Critically abnormal NOT DETECTED [facility] Comment on above: Result Comment: This test is not yet approved or cleared by the [place] FDA. When there are no FDA-approved or cleared tests available, and other criteria are met, FDA can make tests available under an emergency access mechanism called an Emergency Use Authorization (EUA). The EUA for this test is supported by the Tetryl Wringer Operator of Health and Human Service's declaration that [...] longer be used). Performed By: #### C VDTBH #### [facility] [address] [place] [address] Dr. Tiffany Huggins INFLUENZA A [facility] B [facility]on 02[facility] SEE BELOW Normal [facility] Comment on above: Result Comment: Nega tive for Flu A protein angiten. Infection due to Flu A cannot be ruled out. Flu A angiten in the sample may be below the detection limit of the test. Performed By: #### I NFLUAB #### [facility] [address] [place] [address] Dr. Tiffany Huggins INFLUBNEG SEE BELOW Normal [facility] Comment on above: Result Comment: Nega tive for Flu B protein antigen. Infection due to Flu B cannot be ruled out. Flu B antigen in the sample may be below the detection limit of the test. Performed By: #### I NFLUAB #### [facility] [address] [place] [address] Dr. Tiffany Huggins INFLUENZA A AG Negative Normal NEGATIVE SEE COMMENT [facility] Comment on above: Performed By: #### I NFLUAB #### [facility] [address] [place] [address] [address] Tiffany Huggins INFLUENZA B AG Negative Normal NEGATIVE SEE COMMENT [facility] Comment on above: Performed By: #### I NFLUAB #### [facility] [address] [place] [address] [address] Tiffany Huggins INTERNAL CONTROLS Within Normal Limits Normal Wi thin Normal Limits [facility] Comment on above: Performed By: #### I NFLUAB #### [facility] [address] [place] [address] [address] Tiffany Huggins CNCOon 11-02-2016 CNCO Letter TextEliaparish Flores M[address] [place] [address]Wuxb: [phone] 2016. Sandhya Mercer[address] [id number] . Sandhya Mercer JR,We are sorry you missed your Ophthalmology appointment with Marleen Santillan MD on 11/02/16.Please give our appointment office a telephone call at , [phone], to reschedule.Sincerely,[facility] Ophthalmology Normal [facility] PROGRESSon 09-06-2016 PROGRESS HNO ID: [id number] thor: Reeyonathan (Od) Julese: (none)Author Type: OPTOMETRISTType: Progress NotesFiled: 09/06/2016 5:23 [...] with all of its relevantcomponents.Kyle Panchal OD [facility] 09-02-2016 HOSP Office Visit OPHT (OPHTMN) -------SANDHYA MERCER JR ([id number]) 1980 [facility] Department09/02/16 8:00 AM CONTACT LENS OPHT MAIN OPHTMN During your visit today, we recorded the following information about you:Referring Provider: KYLE PANCHAL (TONIA) [[id number]]Allergies As of Date: 09/02/2016(No Known Allergies)Date Reviewed: 09/01/2016Reviewed by: Marilin Rush (Oa) - Fully AssessedReason for Visit: Contact Lens Purchase [[id number]]Primary Visit Diagnosis:Aphakia, 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]Problem List As Of Date 09/02/2016 Noted Resolved Changes in consciousness [R40.4] INVALID FOR* Confusion with nonfocal neurological examinatio*INVALID FOR* Aphakia [H27.00] INVALID FOR* Status:Closed by PATRICK RODRIGUEZ on 09/02/16 [facility] 09-01-2016 HOSP Office Visit OPHT (OPHTMN) -------SANDHYA MERCER JR ([id number]) 1980 MDate Time Provider Department09/01/16 1:30 PM [...] 2016 11:40 AMReferring Provider: MARLEEN FLORES I [[id number]]Allergies As of Date: 09/01/2016(No Known Allergies)Date Reviewed: [...] MARLEEN FLORES MD, I on 09/01/16 Normal [facility] Office Visit OPHT (OPHTMN) -------SANDHYA MERCER JR ([id number]) 1980 MDate Time Provider Department09/01/16 10:30 AM KYLE PANCHAL (OD) OPHTMN During your visit today, we recorded the following information about you:Kyle Panchal, OD 09/06/2016 5:23 PM Signed1. 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]Problem List As Of Date 09/01/2016 Noted Resolved Changes in consciousness [R40.4] INVALID FOR* Confusion with nonfocal neurological examinatio*INVALID FOR* Aphakia [H27.00] INVALID FOR* Status:Closed by KYLE PANCHAL OD on 09/06/16 Normal [facility] PROGRESSon 09-01-2016 PROGRESS HNO ID: [id number] thor: Suly Mezaice: (none)Author Type: PhysicianType: Progress NotesFiled: 09/01/2016 11:41 [...] MD September 01, 2016 11:40 AM Normal [facility] ANES Davion 08-30-2016 ANES POST HNO ID: [id number] thor: Aletha Josuee: AnesthesiologyAuthor Type: AnesthesiologistType: Anesthesia PostOpFiled: 08/30/2016 10:46 AMNote Text:POST ANESTHESIA EVALUATION NOTESERVICE DATE: 08/30/2016SERVICE TIME: 1046DOB: 1980Vitals: 08/30/1709Temp: 36.7 ?C (98 ?F) 36.8 ?C (98.2 ?F) 37.3 ?C (99.2 ?F) 08/30/17095BP: 135/77 131/76 127/76 128/80 08/30/1709Pulse: 70 88 91 88 08/30/1709Resp: 15 17 [...] 30, 2016 : 10:46 AM PAGER/CONTACT #: [phone] [facility] BRIEF OP NOTon 08-30-2016 BRIEF OP NOT HNO ID: [id number] thor: JONNY Mezaervice: OphthalmologyAuthor Type: PhysicianType: Brief Op NoteFiled: 08/30/2016 10:17 AMNote Text:BRIEF OP NOTELOG ID: [id number]/Procedure Date: 08/30/2016Incision/Procedure Start Time: 9:43 AMIncision Close/Procedure End Time: 10:11 AMSurgeon(s)/Proceduralist( s) and Farm Appraiser(s):Surgeon(s) and Role: * Judie Meza assistantProcedure(s): Recess Left Lateral Rectus by 8 mmResect Left Medial Rectus 5.5 mmAnesthesia: GeneralFindings: Evidence of trauma to iris and cornea. Scars from previoussurgeryEstimated Blood Loss: 0 mlSpecimens: NoneComplications: NonePre-Op/Pre-Procedure Diagnosis: Exotropia, monocular, leftPost-Op/Post-Procedure Diagnosis: Exotropia, monocular, leftSIGNATURE: Marleen Flores MD PATIENT NAME: Sandhya Mercer DATE: August 30, 2016 : 10:15 AM PAGER/CONTACT #: [facility] OPERATIVE NOon 08-30-2016 OPERATIVE NO HNO ID: [id number] thor: Suly Mezaice: OphthalmologyAuthor Type: PhysicianType: Operative ReportFiled: 09/01/2016 8:42 AMNote Text:OPERATIVE/PROCEDURE REPORTLOG ID: [id number]/Procedure Date: 08/30/2016Incision/Procedure Start Time: 9:43 AMIncision Close/Procedure End Time: 10:11 AMSurgeon(s)/Proceduralist( s) and Farm Appraiser(s):Surgeon(s) and Role: * Judie Meza Additional StaffProcedure(s):Recess [...] wasisolated. Intermuscular septal attachments were severed. A [id number] vicryl suture was taken 5.5 mm posterior [...] and left the operating room in good condition.Pre-Op/Pre-Proced ure Diagnosis: Left exotropiaPost-Op/Post-Proce dure Diagnosis: SameEstimated Blood Loss: 0 mlSpecimens: NoneImplantable Devices: NoneDrains: NoneComplications: NoneNo qualified resident/fellow was available.SIGNATURE: Marleen Flores MD PATIENT NAME: Sandhya Mercer JRDATE: September 01, 2016 : 8:34 AM PAGER/CONTACT #: Normal [facility] PT EDon 08-30-2016 PT ED HNO ID: [id number] thor: Nisha (Rn) CALIXTO Chinoervice: (none)Author Type: Registered NurseType: Patient EducationFiled: 08/30/2016 [...] Signed By Nisha Chino RN In Department:OPHTHALMOLOGY Normal [facility] CNOVon 08-24-2016 CNOV Office Visit (IMOPMN) -------SANDHYA MERCER JR ([id number]) 1980 MDate Time Provider Department08/24/16 2:30 PM GRACIELA HOFFMAN (PAULA) IMOPMN During your visit today, we recorded the following information about you: Pulse Blood pressure Weight Height 74/minute 124/90 96.2 kg 1.727 FRANNIE Burnett, IT APPLICATION DEVELOPMENT MANAGER 08/24/2016 2:48 PM SignedConsulted by: Dr. FloresType of Surgery: REPAIR STRABISMUS [...] PHYSICAL EXAMINATION (IMPACT)SERVICE DATE: 08/24/2016SERVICE TIME: 2:29 PMPRIMARY CARE PHYSICIAN: Sander Small Jr, MD (Inactive)CHIEF [...] self-reported physical activity.Significant Anesthesia Considerations: None. PAST MEDICAL/SURGICAL/FAMILY/SOC IAL HISTORYPAST MEDICAL HISTORYDiagnosis Date- Aphakia of left eye 1992 lensectomy due to trauma- Corneal scar, left eye 1992 dut trauma- Eye problem trauma os in 1992 nail penetrated OS- Uses contact lenses GP OSPAST SURGICAL [id number]: PAST SURGICAL HISTORY OF Comment: lensectomy OSNo [...] reviewed for today's visit:No new labs or testsPLAN/RECOMMENDATIONSCA RDIAC: Patient is at optimal cardiac condition for scheduled surgery / procedure.PULMONARY: Patient is at optimal Pulmonary status for scheduled surgery / procedure.Patient is optimally prepared for surgery.Patient Instructions: As per patient instructions section. General Preoperative/Medication/Fas ting InstructionsI have discussed the above recommendations with [...] PMGraciela Hoffman CNP 08/24/2016 2:31 PM [facility]igned [facility] Instructions for SurgeryFOOD INSTRUCTIONS:NO solid food or [...] visit please do nothesitate to contact the 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 at [phone] or [phone], [phone]. Signature: Graciela Hoffman CNP Date: August 24, 2016Encounter Number: [id number] Status:Closed by GRACIELA HOFFMAN CNP on 08/24/16 Normal [facility] HISTORY PHYSICALon HISTORY PHYSICAL HNO ID: [id number] thor: Graciela (Paula) DaltonService: (none)Author Type: Nurse PractitionerType: HANDPFiled: 08/24/2016 2:48 PMNote Text:HISTORY AND PHYSICAL EXAMINATION ([facility])SERVICE DATE: 08/24/2016SERVICE TIME: 2:29 PMPRIMARY CARE PHYSICIAN: Sander Small Jr, MD (Inactive)CHIEF [...] self-reported physical activity.Significant Anesthesia Considerations: None. 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 Patient has the following medical comorbidities which mightaffect the perioperative course: - No medical conditions.Patient's RCRI (Revised Cardiac Risk Index: CAD/CHF/Stroke or TIA/SCr>2/DMon Insulin/High Risk Surgery) score is 0 and is at low risk for majoradverse cardiac events in the perioperative period.Diagnostic tests reviewed for today's visit:No new labs or testsPLAN/RECOMMENDATIONSCA RDIAC: Patient is at optimal cardiac condition for scheduled surgery /procedure.PULMONARY: Patient is at optimal Pulmonary status for scheduled surgery /procedure.Patient is optimally prepared for surgery.Patient Instructions: As per patient instructions section. General Preoperative/Medication/Fas ting InstructionsI have discussed the above recommendations with [...] questions, and answered all questions to their statedsatisfaction.EZRA E: Graciela Hoffman CNP PATIENT NAME: Sandhya Mercer JRDATE: August 24, 2016 : 2:29 PM Normal [facility] HOSPon 08-24-2016 HOSP Office Visit OPHT (OPHTMN) -------SANDHYA MERCER JR ([id number]) 1980 MDate Time Provider Department08/24/16 1:30 PM MARLEEN FLORES I OPHTMN During [...] 08/24/2016(No Known Allergies)Date Reviewed: 08/18/2016Reviewed by: Kyle Panchal - Fully AssessedReason for Visit: Pre-Op Exam [87]Primary Visit Diagnosis:Aphakia, 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] Other Visit Diagnoses:Monocular exotropia of left eye [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] Diplopia [H53.2]Problem List As Of Date 08/24/2016 Noted Resolved Changes in consciousness [R40.4] INVALID FOR* Confusion with nonfocal neurological examinatio*INVALID FOR* Aphakia [H27.00] INVALID FOR* Status:Closed by MARLEEN FLORES MD, I on 08/24/16 Normal [facility] PROGRESSon 08-24-2016 PROGRESS HNO ID: [id number] thor[facility] CRISTELA Wickervice: (none)Author Type: LICENSED NURSEType: Progress NotesFiled: 08/24/2016 [...] Supplemental Material Given:Written MaterialInstructed By CH/ [facility] PROGRESS HNO ID: [id number] thor: Anna (Frannie) Zaheer Wickice: (none)Author Type: LICENSED NURSEType: Progress NotesFiled: 08/24/2016 2:48 PMNote Text:Consulted by: Dr. FloresType of Surgery: REPAIR STRABISMUS ?2 HORIZONTAL MUSCLES/OSPatient scheduled for surgery on: 08/30/16re you experiencing any eye pain?noDo you have a history of sleep apnea?noDo you Have a pacemaker or an ICD?noDo you or any of your family members have a history of malignanthyperthermia?noAre you an Insulin dependent Diabetic?noHCG needed?n/Lily Wick L.P.N. Normal [facility] PROGRESS HNO ID: [id number] thor: Keturah Meza: (none)Author Type: PhysicianType: Progress [...] MD August 24, 2016 2:12 PM Normal [facility] Vital Signs Date Time Vital Sign Value Performing Clinician Facility 04-07-2023 12:29-0500 Body height 172.72 cm METER TESTER-C Sharron Cerrato Work Phone: [facility] 04-07-2023 12:29-0500 Body temperature 97.8 [degF] METER TESTER-C Sharron Silvermanmer Work Phone: [facility] 04-07-2023 12:29-0500 Body weight 92.2 kg METER TESTER-C Sharronjorge luis Silvermanmer Work Phone: [facility] 04-07-2023 12:29-0500 Diastolic blood pressure 95 mm[Hg] METER TESTER-C Sharron Tonya Work Phone: [facility] 04-07-2023 12:29-0500 Heart rate 79 /min METER TESTER-C Sharron Silvermanmer Work Phone: [facility] 04-07-2023 12:29-0500 Respiratory rate 18 /min METER TESTER-C Sharron Cerrato Work Phone: [facility] 04-07-2023 12:29-0500 SaO2% (BldA) [Mass fraction] 98 % METER TESTER-C Sharron Cerrato Work Phone: [facility] 04-07-2023 12:29-0500 Systolic blood pressure 150 mm[Hg] METER TESTER-C Sharronjorge luis Silvermanmer Work Phone: [facility] 05-07-2021 12:00-0500 Body height 172.72 cm Simon Pink Other [employer] Other 05-07-2021 12:00-0500 Body mass index (BMI) [Ratio] 32.54 kg/m2 Simon Pink Other [employer] Other 05-07-2021 12:00-0500 Body weight 97.07 kg Simon Pink Other [employer] Other 03-19-2021 12:15-0500 Body height 172.72 cm Simon Garciakes Other [employer] Other 03-19-2021 12:15-0500 Body mass index (BMI) [Ratio] 32.69 kg/m2 Simon Hykes Other [employer] Other 03-19-2021 12:15-0500 Body weight 97.52 kg Simon Hykes Other [employer] Other 02-05-2021 11:15-0500 Body height 172.72 cm Simon Hykes Other [employer] Other 02-05-2021 11:15-0500 Body mass index (BMI) [Ratio] 33.3 kg/m2 Simon Garciakes Other [employer] Other 02-05-2021 11:15-0500 Body weight 99.34 kg Simon Hykes Other [employer] Other 02-05-2021 11:15-0500 Diastolic blood pressure 96 mm[Hg] Simon Hykes Other [employer] Other 02-05-2021 11:15-0500 Systolic blood pressure 134 mm[Hg] Simon Hykes Other [employer] Other 12-15-2020 11:45-0400 Body height 172.72 cm Simon Hykes Other [employer] Other 12-15-2020 11:45-0400 Body mass index (BMI) [Ratio] 31.93 kg/m2 Simon Hykes Other [employer] Other 12-15-2020 11:450400 Body weight 95.26 kg Simon Pink Other [employer] Other Encounters Encounter Date Encounter Type Care Provider Facility Start: 06-13-2023 ambulatory Francesco ALSTON [place] [facility] Start: 04-07-2023 End: 04-07-2023 Emergency department patient visit Ray Lolly Facility:[facility] Start: 04-07-2023 End: 04-07-2023 Emergency department patient visit METER TESTER-C Sharron Cerrato Work Phone: [facility] Work Phone: Start: 03-02-2023 ambulatory Francesco ALSTON Facility :[facility] Start: 04-14-2022 ambulatory SHARRON CERRATO Facility: Start: 02-01-2022 End: 02-01-2022 ambulatory SHARRON CERRATO Facility:[facility] Start: 01-12-2022 End: 01-12-2022 ambulatory Kendall Brown Other [employer] Other Start: 01-12-2022 Telephone encounter Kendall Ventura [facility] Start: 09-07-2021 End: 09-07-2021 ambulatory Simon Pink Other [employer] Other Start: 09-07-2021 Telephone encounter Simon Pink [facility] Start: 05-07-2021 End: 05-07-2021 ambulatory Simon Pink Other [employer] Other Start: 05-07-2021 Office outpatient visit 15 minutes Simon Pink [facility] Start: 03-19-2021 End: 03-19-2021 ambulatory Simon Pink Other [employer] Other Start: 03-19-2021 Office outpatient visit 25 minutes Simon Pink [facility] Start: 03-04-2021 End: 03-04-2021 ambulatory Simon Pink Other [facility] Other Start: 03-04-2021 Telephone encounter Simon Pink [facility] Start: 02-05-2021 End: 02-05-2021 ambulatory Simon Pink Other [facility] [employer] Other Start: 02-05-2021 Office outpatient visit 15 minutes Simon Pink [facility] Start: 12-25-2020 Telephone encounter Simon Pink [facility] Start: 12-19-2020 Telephone encounter Simon Pink [facility] Start: 12-15-2020 Encounter by compute r link Simon Pink [facility] Start: 12-15-2020 Office outpatient visit 25 minutes Simon Pink [facility] Start: 09-02-2016 End: 09-03-2016 Ambulatory REECHA (OD) [facility] Start: 09-01-2016 End: 09[facility]02[facility]: 09-01-2016 End: 09-07-2016 Ambulatory REECHA (OD) [facility] Start: 08-30-2016 End: 08-30-2016 [facility]: [facility] Start: 08-24-2016 End: 08-25-2016 Ambulatory [facility] Procedures Date Procedure Procedure Detail Performing Clinician Start: 04-07-2023 US, scrotum METER TESTER-Elisabeth Cerrato Work Phone: Plan of Treatment Date Care Activity Detail Author Start: 04-07-2023 [facility] Chlamydia trachomati s DNA [Presence] in Unspecified specimen by HEATH with probe detection [facility] Neisseria gonorrhoea e DNA [Presence] in Unspecified specimen by HEATH with probe detection [facility] Patient Education Radiculopathy (DC) [facility] Work Phone: Patient referral [facility] Work Phone: Trichomonas vaginali s DNA [Presence] in Unspecified specimen by HEATH with probe detection [facility] Immunizations Immunization Date Immunization Notes Care Provider Elizabeth merchant 09-13-2016 Toradol per 15 mg Simon lugo Other [facility] [employer] Other 10-30-2015 Toradol per 15 mg Simon lugo Other [employer] Other 10-05-2012 Depo-Medrol 40 mg Simon lugo Other [employer] Other Payers Date Payer Category Payer Self-pay [id number] 1980 Unknown [id number] 2.16.84 [id number] 1980 Unknown [id number] 2.16.84 [id number] 1980 Unknown [id number] 2.16.8 [id number] 1960 Self-pay [id number] 1960 Unknown [id number] 2. [id number] Unknown MMO [id number] Unknown [id number] 2.16.8 [id number] Social History Date Type Detail Facility Sex Assigned At [facility] [employer] Other Start: 04-07-2023 Tobacco smoking stat us NHIS Never smoked tobacco (finding) [facility] Start: 1980 Sex Assigned At Male F [facility] Evaluation note 05-07-2021 Note Date & Type Note Facility 05-07-2021 Evaluation note Encounter Date Diagnosis Assessment Notes Apr, Irritable bowel syndrome with diarrhea (ICD-10 - K58.0) CONTINUE DICYCLOMINE NEEDED PT GIVEN COPY OF LOW FODMAP DIET RTO 8 WEEKS Apr, GERD (gastroesopha geal reflux disease) (ICD-10 - K21.9) [employer] Other Evaluation note 02-05-2021 Note Date & Type Note Facility 02-05-2021 Evaluation note Encounter Date Diagnosis Assessment Notes Jan, Exocrine pancreatic insufficiency (ICD-10 - K86.81) CONTINUE ZENPEP Jan, Irritable bowel syndrome with diarrhea (ICD-10 - K58.0) Jan, GERD (gastroesophageal reflux disease) (ICD-10 - K21.9) Jan, Other START DICYCLOMINE 20MG BID [employer] Other Evaluation note 12-19-2020 Note Date & Type Note Facility 12-19-2020 Evaluation note Encounter Date Diagnosis Assessment Notes Nov, Diarrhea (ICD-10 - R19.7) [employer] Other Evaluation note 12-15-2020 Note Date & [...] - R10.9) Nov, Diarrhea (ICD-10 - R19.7) [employer] Other Evaluation note Note Date & Type Note Facility Evaluation note No Information [facility] [employer] Other Evaluation note Note Date & Type Note Facility Evaluation note [employer] Other Evaluation note Note Date & Type Note Facility Evaluation note No assessment information availa [facility] Work Phone: History general Narrative - Reported Note Date & Type Note Facility History general Narrative - Reported Type Medical History GERD Surgical History optical lens removed Surgical History wisdom teeth extract Surgical History pins in the lt ankle and remova l Surgical History reattached thumb Hospitalization History see surgical hx [employer] Other History general Narrative - Reported Note Date & Type Note Facility History general Narrative - Reported [employer] Other History general Narrative - Reported Note Date & Type Note Facility History general Narrative - Reported Type Medical History GERD Medical History IBS Surgical History optical lens removed Surgical History wisdom teeth extract Surgical History pins in the lt ankle and remova l Surgical History reattached thumb Hospitalization History see surgical hx [employer] Other Summary Purpose Family History No Family History Records FoundNo Family History Records FoundNo Family History Records FoundNo Family History Records Found Advance Directives No Advanced Directives Records Found Advance Directive Response Recorded Date/ Time Advance Directives No January 30, 2017 11:36am Chief Complaint and Reason for Visit Chief Complaint personal Additional Source Comments (unrecognized sect ion and content) No Status Records FoundNo Status Records FoundNo Status Records FoundNo Status Records Found INFORMATION SOURCE (unrecogn ized section and content) DATE CREATED AUTHOR 08/24/2017 [facility] DATE CREATED AUTHOR AUTHOR'S ORGANIZ ATION [facility]2022 [facility] DATE CREATED AUTHOR AUTHOR'S ORGANIZ ATION 03/03/2023 [facility] DATE CREATED AUTHOR AUTHOR'S ORGANIZ ATION 04/11/2023 [facility] REASON FOR VISIT (unrecogniz ed section and content) PT HERE WITH COMPLAINTS OF A BDOMINAL PAINUpdate Demographics - Additional InfoClinical Acute IllnessSTOOL RESULTSPATIENT HERE FOR 4-6 WEEK FOLLOW UPClinical Acute IllnessPATIENT HERE FOR FOLLOW UP. PATIENT WAS TO START ON THE PREDNISONEREFILLRefills Care Teams (unrecognized sec tion and content) Team Status: Active Member Role Status Dates NETO Nunes Primary Care Provider Active Team Status: Inactive Member Role Status Dates NETO Nunes Primary Care Provider Active Start: April 07, 2023 End: April 07, 2023 Ray Ambrocio APRN Emergency Provider Active Start: April 07, 2023 End: April 07, 2023 Goals (unrecognized section and content) Goals may be documented in a n alternate section FOR RECORDS PERTAINING TO PATIENTS WHO ARE [...] BE BASED ON THE PRIMARY CLINICAL RECORDS. [facility]. provides no warranty or guarantee of the accuracy or completeness of information in this document.
--- NOTE | 2023-04-11 12:04 | XR_ITS ---
[facility] [place] [id number] Patient Name: SANDHYA MERCER MRN: [id number] date: 1980 Sex: M Assigned Patient Location: [facility] Current Patient Location: [facility] Accession/Order Number: [id number] Exam Date: 04/11/2023 12:13 Report Date: 04/11/2023 15:17 At the request of: LILIYA CERRATO Procedure: XR lumbar spine 2-3V EXAMINATION: XR lumbar spine 2-3V HISTORY: right sciatic nerve pain M54.31 COMPARISON: No relevant comparison available. FINDINGS: BONES: Normal. No significant spondylosis, scoliosis, fracture, or visible bony lesion. Facet osteoarthropathy L5-S1 DISC SPACES: Normal. No significant disc height narrowing, subluxation, or endplate abnormality. PARASPINOUS: Negative. No paraspinous abnormality is seen. OTHER: Negative. XR/XR lumbar spine 2-3V IMPRESSION: No acute abnormality Electronically authenticated by: ALFREDO ORTEGA Date: 04/11/2023 15:17
== END 2023-04-11 12:01 | disposition home or self-care (01) ==
LOC: RAD 12:01
PROVIDERS: PCP Nurse Practitioner Family; Visit Provider Nurse Practitioner Family
DX: M54.31 Sciatica, right side (principal)
CPT/HCPCS: 72100

== ENCOUNTER 2023-05-18 09:13 | Outpatient (REF) | payer OTHER, SELFPAY ==
[2023-05-18 13:42] LABS: Strep A Antigen Screen Negative
[2023-05-18 13:43] LABS: Internal Control Within Normal Limits
== END 2023-05-18 09:14 | disposition home or self-care (01) ==
LOC: LAB 09:13
PROVIDERS: PCP Nurse Practitioner Family; Visit Provider Nurse Practitioner Family
DX: J02.9 Acute pharyngitis, unspecified (principal)
CPT/HCPCS: 87070; 87880

== ENCOUNTER 2024-04-25 10:16 | Outpatient (OUT) | payer OTHER, SELFPAY ==
--- OUTSIDE RECORDS SUMMARY | 2024-04-25 10:27 | XMS_ITS | CCD ---
Author Organization [facility] CliniSyma Care Team Providers Care Ophthalmic Surgeon Name Role Phone Simon Pink Unavailable KevinKendall hernández Unavailable SHARRON CERRATO Admitting Unavailable SHARRON CERRATO Attending Unavailable SHARRON CERRATO Primary Care Unavailable SHARRON CERRATO Admitting Unavailable SHARRON CERRATO Attending Unavailable SHARRON CERRATO Consulting Unavailable SHARRON CERRATO Primary Care Unavailable NETO Cerrato Primary Care Provider [phone] MYKE Ambrocio Emergency Provider [phone] Victor Manuel Acuña Jr. Primary Care Provider Unava ilable Ray Ambrocio Attending Unavailable Sharron Cerrato Primary Care Unavailable Ray Ambrocio Admitting Unavailable Ray Ambrocio Attending Unavailable Sharron Cerrato Primary Care Unavailable Ray Ambrocio Admitting Unavailable NETO Cerrato Primary Care Provider MYKE Ambrocio Emergency Provider KYLE PANCHAL Attending Unavailable VICTOR MANUEL ACUÑA JR Primary Care Unavailable GARETT CHIRINOS Attending Unavailable VICTOR MANUEL ACUÑA JR Primary Care Unavailable REKHA BURROUGHS Attending Unavailable SHARRON CERRATO Referring Unavailable MIKE BOYER Attending AVIS Strange Attending Unavailable MIKE BOYER Attending SHARRON Banks Primary Care Physician EDD KAISER Attending Unavailable Francesco BUTLER Attending Unavailable SHARRON CERRATO Referring Unavailable EDD KAISER Attending Unavailable Allergies Allergy Classification Reported Allergen(s) Allergy Type Date of Onset Reaction(s) Facility (1 source) No Known Medication Allergies; Translations: [No Known Medication Allergies] Propensity to adverse reactions (disorder) [facility] Repository Medications Current Medications Medication Drug Class(es) Dates Sig (Normalized) Sig (Original) amylase 385412 unt / lipase 86713 unt / protease [id number] unt delayed release oral capsule (7 sources) Start: 12-15-2020 Start: 12-15-2020 take 55923-172499 [I U] by mouth three times daily Zenpep [id number] UNIT as directed Orally tid for 30 day(s) Nov, Active dicyclomine hydrochloride 20 mg oral tablet (10 sources) Anticholinergic Start: 04-21-2023 End: 04-21-2023 take 1 tablet by mouth twice daily as needed Dicyclomine Active 20 MG PO Twice daily 60 April 21, 2023 1:21pm Take 1 tablet orally twice a day as needed. Start: 02-05-2021 take 1 tablet by eliezer th twice daily as needed Dicyclomine HCl 20 MG 1 tablet Orally bid prn for 30 days Feb, Active Start: 02-05-2021 Dicyclomine HC l 20 MG 1 tablet Orally PRN for 30 day(s) Feb, Active ibuprofen 800 mg oral tablet (3 sources) Nonsteroidal Anti-inflammatory Drug Start: 02-06-2020 take 1 tablet by mouth four times daily as needed for pain ibuprofen 800 mg Tab 800 mg = 1 tab(s), Oral, QID, PRN pain, Refills(s) 0 Start Date: 02/06/20 Status: Ordered Start: 01-30-2017 End: 06-05-2020 take 800 mg by mouth three times daily Ibuprofen Discontinued 800 MG PO Three times daily January 30, 2017 1:00am June 05, 2020 1:14pm Iron 100 Plus (1 source) Start: 02-06-2020 take 1 tablet by mouth once daily Iron 100 Plus 1 tab(s), Oral, Daily, Refill(s) 0 Start Date: 02/06/20 Status: Ordered Multivitamin, Therapeutic w/ Minerals (2 sources) Start: 02-06-2020 take 1 tablet by mouth once daily Multivitamin, Therapeutic w/ Minerals 1 tab(s), Oral, Daily, Refill(s) 0 Start Date: 02/06/20 Status: Ordered naproxen 500 mg oral tablet (1 source) Nonsteroidal Anti-inflammatory Drug Start: 04-24-2024 End: 05-08-2024 take 1 tablet by mouth twice daily at mealtime Naprosyn 500 mg Tab 500 mg = 1 tab(s), Oral, BID, with food, X 14 day(s), # 28 tab(s), Refills(s) 0, Pharmacy: [facility]/pharmacy #[id number], 173, cm, 04/24/24 9:04:00 EST, Height/Length Dosing, 94, kg, 04/24/24 9:04:00 EST, Weight Dosing Start Date: 04/24/24 Stop Date: 05/08/24 Status: Ordered pantoprazole 40 mg delayed release oral tablet (11 sources) Proton Pump Inhibitor Start: 03-05-2020 take 1 tablet by mouth once daily Pantoprazole [address] Tab 40 mg = 1 tab(s), Oral, Daily, Refills(s) 0 Start Date: 03/05/20 Status: Ordered Pantoprazole Sod ium Active polyethylene glycol 3350 11724 mg powder for oral solution (2 sources) Osmotic Laxative Start: 06-05-2020 Polyethylene Glycol 3350 (Miralax) 17 gram/dose powder Active 17 GM PO Daily 68 June 05, 2020 12:00am predniSONE 20 mg oral tablet (3 sources) Start: 04-07-2023 take 60 mg by mouth once daily at mealtime Prednisone Active 60 MG PO Daily April 07, 2023 1:00am administer with food or milk Start: 03-19-2021 take 1 tablet by mouth every t wenty-four hours sulfamethoxazole 800 mg / trimethoprim 160 mg oral tablet (1 source) Dihydrofolate Reductase Inhibitor Antibacterial, Sulfonamide Antimicrobial Start: 04-24-2024 End: 06-05-2024 Bactrim D.S. 800 mg-160 mg Tab 1 tab(s), Oral, BID for 6 week(s), 84 tab(s), Refill(s) 0, [facility]/pharmacy #[id number], 173, cm, 04/24/24 9:04:00 EST, Height/Length Dosing, 94, kg, 04/24/24 9:04:00 EST, Weight Dosing Start Date: 04/24/24 Stop Date: 06/05/24 Status: Ordered tamsulosin hydrochloride 0.4 mg oral capsule (1 source) alpha-Adrenergic Hayde Start: 04-24-2024 take 1 capsule by mouth once daily Flomax 0.4 mg Cap 0.4 mg = 1 cap(s), Oral, Daily, # 30 cap(s), Refills(s) 2, Pharmacy: [facility]/pharmacy #[id number], 173, cm, 04/24/24 9:04:00 EST, Height/Length Dosing, 94, kg, 04/24/24 9:04:00 EST, Weight Dosing Start Date: 04/24/24 Status: Ordered traZODone hydrochloride 50 mg oral tablet (11 sources) Serotonin Reuptake Inhibitor Start: 02-06-2020 take 1 tablet by mouth once daily at bedtime as needed traZODONE 50 mg Tab 50 mg = 1 tab(s), Oral, Once a day (at bedtime), PRN Insomnia, Refills(s) 0 Start Date: 02/06/20 Status: Ordered traZODone HCl Ac tive valACYclovir 500 mg oral tablet (15 sources) Herpesvirus Nucleoside Analog DNA Polymerase Inhibitor, Herpes Simplex Virus Nucleoside Analog DNA Polymerase Inhibitor, Herpes Zoster Virus Nucleoside Analog DNA Polymerase Inhibitor Start: 02-06-2020 take 1 tablet by mouth once daily Valtrex 500 mg Tab 500 mg = 1 tab(s), Oral, Daily, Refills(s) 0 Start Date: 02/06/20 Status: Ordered valACYclovir HCl Active Comment on above: Take 1 tablet by eliezer th every afternoon. vancomycin 125 mg oral capsule (1 source) Glycopeptide Antibacterial Start: take 1 capsule by mouth every twelve hours Vancomycin HCl 125 MG 1 capsule Orally bid for 10 days Nov, Active Completed/Discontinued Medications Medication Drug Class(es) Dates Sig (Normalized) Sig (Original) acetaminophen 325 mg / oxyCODONE hydrochloride 5 mg oral tablet (2 sources) Opioid Agonist Start: 01-31-2017 End: 06-05-2020 take 2 tablets by mouth every six hours as needed for pain Oxycodone-Acetamin ophen (Percocet) 5-325 mg tablet Discontinued 2 TAB PO Q6H January 31, 2017 June 05, 2020 1:14pm 1-2 po q 6 hours prn pain benoxinate hydrochloride 4 mg/ml / fluorescein sodium 3 mg/ml ophthalmic solution (1 source) Diagnostic Dye Start: 05-12-2023 End: 05-12-2023 fluorescein-benoxi edward 0.3-0.4 % 1 Drop (FLURESS) Crutches Underarm Crutches (4 sources) Start: 09-13-2016 Crutches Underarm Crutches as directed underarm as directed for days Aug, Not-Taking docusate sodium 100 mg oral capsule (2 sources) Start: 01-31-2017 End: 06-05-2020 take 100 mg by mouth twice daily Docusate Sodium Discontinued 100 MG PO Twice daily 60 January 31, 2017 1:00am June 05, 2020 1:14pm indomethacin 25 mg oral capsule (8 sources) Nonsteroidal Anti-inflammatory Drug Start: 09-13-2016 take 1 capsule by mouth every twelve hours Indomethacin 25 MG 1 capsule with food or milk Orally Twice a day for 30 day(s) Aug, Not-Taking Start: 09-13-2016 take 1 capsule by mo [facility] every twelve hours Indomethacin 50 MG 1 capsule with food or milk Orally Twice a day for 10 days Aug, Not-Taking Ketorolac (6 sources) Nonsteroidal Anti-inflammatory Drug, Cyclooxygenase Inhibitor Start: 09-13-2016 Toradol p er 15 mg Aug, 60 mg Start: 10-30-2015 Toradol per 15 mg Oct, 60 mg methylPREDNISolone (3 sources) Corticosteroid Start: 10-05-2012 Depo-Medrol 40 mg Sep, 40 mg minocycline 100 mg oral capsule (1 source) Tetracycline-class Drug Start: 04-21-2023 take 1 capsule by mouth once daily minocycline (MINOCIN, DYNACIN) 100 mg capsule TAKE 1 CAPSULE BY MOUTH EVERY DAY EVERY NIGHT 0 04/21/2023 Active Comment on above: TAKE 1 CAPSULE BY MO [facility] [[email or web address]] EVERY DAY EVERY NIGHT moxifloxacin 5 mg/ml ophthalmic solution (1 source) Quinolone Antimicrobial Start: 05-12-2023 take 1 drop(s) into the eye(s) four times daily moxifloxacin (VIGAMOX) 0.5 % ophthalmic solution Use 1 Drop in the left eye four times daily. 3 mL 1 05/12/2023 Active Comment on above: Use 1 Drop in the le ft eye four times daily. omeprazole 40 mg delayed release oral capsule (3 sources) Proton Pump Inhibitor Start: 06-05-2020 End: 06-11-2020 take 40 mg by mouth twice daily Omeprazole Discontinued 40 MG PO Twice daily June 05, 2020 12:00am June 11, 2020 10:19am Start: 02-06-2020 take 1 capsule by [facility] once daily omeprazole 40 mg Cap-DR 40 mg = 1 cap(s), Oral, Daily, Refills(s) 0 Start Date: 02/06/20 Status: Ordered phenylephrine hydrochloride 25 mg/ml ophthalmic solution (1 source) alpha-1 Adrenergic Agonist Start: 05-12-2023 End: 05-12-2023 PHENYLephrine 2.5 % 1 Drop (AK-DILATE, TIANNA-SYNEPHRINE) Post-OP Shoe/Soft Top Men - (4 sources) Start: 09-13-2016 Post-OP Shoe/S oft Top Men - as directed post-op shoe as directed for days Aug, Not-Taking proparacaine hydrochloride 5 mg/ml ophthalmic solution (1 source) Local Anesthetic Start: 05-12-2023 End: 05-12-2023 proparacaine 0.5 % 1 Drop (ALCAINE) sertraline 50 mg oral tablet (1 source) Serotonin Reuptake Inhibitor Start: 05-04-2023 sertraline (ZOLOFT) 50 mg tablet sucralfate 1000 mg oral tablet (3 sources) Aluminum Complex Start: 06-05-2020 End: 06-11-2020 Sucralfate Discontinued 1 GM PO Four times daily June 05, 2020 12:00am June 11, 2020 10:19am Patient does not take this as prescribed. Start: 02-06-2020 take 1 tablet by [facility] four times daily Carafate 1 gram Tab 1 gm = 1 tab(s), Oral, QID, Refills(s) 0 Start Date: 02/06/20 Status: Ordered tiZANidine 4 mg oral tablet (7 sources) Central alpha-2 Adrenergic Agonist Start: 02-06-2020 End: 06-11-2020 take 4 mg by mouth once daily Tizanidine Discontinued 4 MG PO Daily June 05, 2020 12:00am June 11, 2020 10:19am tiZANidine HCl N ot-Taking tretinoin 0.25 mg/ml topical cream (1 source) Retinoid Start: 05-02-2023 tretinoin (RET IN-A) 0.025 % topical cream tropicamide 10 mg/ml ophthalmic solution (1 source) Anticholinergic Start: 05-12-2023 End: 05-12-2023 tropicamide 1 % 1 Drop (MYDRIACYL) Vitamin D3 5000 intl units oral tab (2 sources) Start: 02-06-2020 Vitamin D3 500 0 intl units oral tab 5,000 International_Unit = 1 tab(s), Oral, MonWedFri, Refills(s) 0 Start Date: 02/06/20 Status: Ordered Problems Active Problems Problem Classification Problem Date Documented Da te Episodic/Chronic Abdominal pain (17 sources) Abdominal pain; Translations: [Unspecified abdominal pain] Onset: 1 Resolved: 1 Episodic Appendicitis and other appendiceal conditions (2 sources) Appendicitis; Translations: [Unspecified appendicitis] 02-09-2023 Episodic Blindness and vision defects (2 sources) Irregular astigmatism, left eye; Translations: [Irregular astigmatism, left eye] Onset: 4 Episodic Cataract (2 sources) Presence of intraocular lens; Translations: [Presence of intraocular lens] Onset: 4 Chronic Deficiency and other anemia (2 sources) Hemoglobin low 02-05-2020 Episodic Disorders of lipid metabolism (2 sources) Hyperlipidemia 02-05-2020 Chronic Esophageal disorders (16 sources) Gastroesophageal reflux disease; Translations: [Gastro-esophageal reflux disease without esophagitis] Onset: 1 Resolved: 2 Chronic Fever of unknown origin (1 source) Fever, unspecified; Translations: [FEVER UNSPECIFIED] Onset: 2 Episodic Headache; including migraine (2 sources) Chronic tension-type headache 02-05-2020 Chronic Inflammatory conditions of male genital organs (2 sources) Chronic prostatitis; Translations: [Chronic prostatitis] Onset: 5 Chronic Other congenital anomalies (2 sources) Other congenital malformations of iris; 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: 4 Chronic Other eye disorders (2 sources) Traumatic mydriasis; 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-2023 Chronic Other eye disorders (2 sources) Aphakia; Translations: [Aphakia, unspecified eye] Onset: 4 10-18-2013 Chronic Other eye disorders (2 sources) Scar of cornea of left eye; Translations: [Unspecified corneal scar and opacity] 04-28-2023 Episodic Other eye disorders (2 sources) Unspecified corneal edema; Translations: [Unspecified corneal edema] Onset: 4 Episodic Other eye disorders (2 sources) Unspecified corneal scar and opacity; Translations: [Unspecified corneal scar and opacity] Onset: 4 Episodic Other gastrointestinal disorders (6 sources) Irritable bowel syndrome with diarrhea; Translations: [Irritable bowel syndrome with diarrhea] Chronic Other gastrointestinal disorders (3 sources) Irritable bowel syndrome with diarrhea Onset: 1 Resolved: 2 Chronic Other gastrointestinal disorders (12 sources) Constipation; Translations: [Constipation, unspecified] 02-09-2023 Episodic Other gastrointestinal disorders (10 sources) Diarrhea; Translations: [Diarrhea, unspecified] Episodic Other injuries and conditions due to external causes (1 source) Foreign body in left cornea; Translations: [Foreign body in cornea, left eye, initial encounter] 06-01-2023 Episodic Other injuries and conditions due to external causes (2 sources) Other injuries of unspecified eye and orbit, initial encounter; Translations: [Other injuries of unspecified eye and orbit, initial encounter] Onset: 4 Episodic Other upper respiratory infections (2 sources) Acute upper respiratory infection, unspecified; Translations: [Pharyngitis] Onset: 2 05-18-2023 Episodic Pancreatic disorders (not diabetes) (13 sources) Exocrine pancreatic insufficiency; Translations: [Exocrine pancreatic insufficiency] Onset: 1 Resolved: 2 Episodic Residual codes; unclassified (2 sources) Insomnia 02-05-2020 Episodic Spondylosis; intervertebral disc disorders; other back problems (2 sources) Nerve root disorder; Translations: [Radiculopathy, site unspecified] 04-07-2023 Episodic Unclassified (2 sources) CONTACT W/AND (SUSP) EXPOS COVID-19; Translations: [CONTACT W/AND (SUSP) EXPOS COVID-19] Onset: 2 Unclassified (1 source) Right testicular pain; Translations: [Right testicular pain] Onset: 4 Viral infection (2 sources) Genital herpes simplex 02-05-2020 Chronic Viral infection (1 source) COVID-19; Translations: [COVID-19] Onset: 2 Past or Other Problems Problem Classification Problem Date Documented Da te Episodic/Chronic Other gastrointestinal disorders (2 sources) Diarrhea, unspecified; Translations: [Diarrhea R19.7] Onset: 12-15-2020 Resolved: 12-19-2020 Episodic Other nervous system disorders (2 sources) Level of consciousness - finding; Translations: [Other symptoms and signs involving cognitive functions and awareness] Onset: 01-13-2010 01-13-2010 Episodic Residual codes; unclassified (2 sources) Clouded consciousness; Translations: [Disorientation, unspecified] Onset: 01-13-2010 01-13-2010 Episodic Unclassified (1 source) CONTACT W/AND (SUSP) EXPOS COVID-19; Translations: [CONTACT W/AND (SUSP) EXPOS COVID-19] Onset: 02-01-2022 Results Test Name Value Interpretation Reference Range Facility Provider Letteron 09-21-2023 Provider Letter Provider Letter September 21, 2023 SANDHYA MERCER [address] [place] [id number] : 1980 Dear Sandhya, We have been trying to reach you with no success. You have an appointment with Dr. Francesco Butler on 10/03/2023which will need to be rescheduled since he will be out of the office that day. Please contact the office at the number listed below to get this appointment rescheduled at your earliest convenience. Thank you for your prompt attention to this matter. Sincerely, [facility] [address], [place] [address] Normal [facility] CNCOon 05-12-[address] [facility] Bilirubin Test strip Ql (U)O rdered By: Ray Ambrocio on 04-07-2023 Bilirubin Ql (U) Negative Negative [facility] Chlamydia trachomatis DNA [P resence] in Specimen by HEATH with probe detectionOrdered By: Ray Ambrocio on 04-07-2023 C. trachomatis DNA HEATH+probe Ql (Unsp spec) Negative Negative [facility] Chlamydia/GC/Trich NAAon Chlamydia Trachomotis, HEATH Negative Normal Negative [facility] Comment on above: Performed By: #### G CCHLAMTRI #### [facility] , #### UA #### [facility] [address] Neisseria Gonorrhoeae, HEATH Negative Normal Negative [facility] Comment on above: Performed By: #### G CCHLAMTRI #### [facility] , #### UA #### [facility] [address] [place] [address] Trichomonas HEATH Negative Normal Negative [facility] Comment on above: Result Comment: Perf ormed at: =G - [facility] [address] [id number] Veterinarian Poultry: Donna Ruiz MD, Phone: [phone] PERFORMED BY: [place] [address] PATHOLOGIST STENCIL SPRAYER MONTY VARELA M.D. Performed By: #### G CCHLAMTRI #### [facility] , #### UA #### [facility] [address] [place] [address] Color Auto (U)Ordered By: Stephen Ambrocio on 04-07-2023 Color (U) Yellow Yellow [facility] Ketones Auto test strip (U) [Mass/Vol]Ordered By: Ray Ambrocio on 04-07-2023 Ketones (U) [Mass/Vol] Negative Negative [facility] Neisseria gonorrhoeae DNA [P resence] in Specimen by HEATH with probe detectionOrdered By: Ray Ambrocio on 04-07-2023 N. gonorrhoeae DNA HEATH+probe Ql (Unsp spec) Negative Negative [facility] Nitrite Test strip Ql (U)Ord ered By: Ray Ambrocio on 04-07-2023 Nitrite Ql (U) Negative Negative [facility] Protein Auto test strip (U) [Mass/Vol]Ordered By: Ray Ambrocio on 04-07-2023 Protein (U) [Mass/Vol] Negative Negative [facility] Specific gravity Auto test s trip (U) [Rel density]Ordered By: Ray Ambrocio on 04-07-2023 Specific gravity (U) [Rel density] 1.020 1.001-1.030 [facility] Trichomonas vaginalis DNA [P resence] in Specimen by HEATH with probe detectionOrdered By: Ray Ambrocio on 04-07-2023 T. vaginalis DNA HEATH+probe Ql (Unsp spec) Negative Negative [facility] Comment on above: Performed at: =[address] [place], [place] [id number] Director: Donna Ruiz MD, Phone: [phone] US scrotumon 04-07-2023 US scrotum [facility] [place] [address] [place] [address] Ultrasound Report Signed Patient: Sandhya Mercer JR MR#: [id number] : 1980 Acct:[id number] Age/Sex: 42 / M ADM Date: 04/07/23 Loc: ER Room: Type: [facility] ER Attending Dr: Ordering Provider: Ray Ambrocio [...] Daniel Corea M.D.04/07/2023 1:46 PM Dictation Location: [place] [address] Tech: Cyndie Church Transcribed By: MARLI 04/07/23 1346 Dictated By: Daniel Corea II, MD 04/07/23 1344 Signed By: 04/07/23 1346 Normal [facility] Urinalysison 04-07-2023 Appearance (U) Clear Normal Clear [facility] Comment on above: Order Comment: Name Collection Type:: Voided Performed By: #### G CCHLAMTRI #### [facility] , #### UA #### [facility] [address] [place] [address] [place] Bilirubin,Urine Negative Normal Negative [facility] Comment on above: Order Comment: Name Collection Type:: Voided Performed By: #### G CCHLAMTRI #### [facility] , #### UA #### [facility] [address] [place] [address] [place] Color (U) Yellow Normal Yellow [facility] Comment on above: Order Comment: Name Collection Type:: Voided Performed By: #### G CCHLAMTRI #### [facility] , #### UA #### [facility] [address] [place] [address] [place] Glucose Ql (U) Normal Normal Normal [facility] Comment on above: Order Comment: Name Collection Type:: Voided Performed By: #### G CCHLAMTRI #### [facility] , #### UA #### [facility] [address] Ketones Ql (U) Negative Normal Negative [facility] Comment on above: Order Comment: Name Collection Type:: Voided Performed By: #### G CCHLAMTRI #### [facility] , #### UA #### [facility] [address] [place] [address] Leukocyte esterase Test strip Ql (U) Negative Normal Negative [facility] Comment on above: Order Comment: Name Collection Type:: Voided Performed By: #### G CCHLAMTRI #### [facility] , #### UA #### [facility] [address] [place] [address] Nitrite,Urine Negative Normal Negative [facility] Comment on above: Order Comment: Name Collection Type:: Voided Performed By: #### G CCHLAMTRI #### [facility] , #### UA #### [address] Occult Blood,Urine Negative Normal Negative [facility] Comment on above: Order Comment: Name Collection Type:: Voided Result Comment: PERF ORMED BY: [place] [address] PATHOLOGIST STENCIL SPRAYER MONTY VARELA M.D. Performed By: #### G CCHLAMTRI #### [facility] , #### UA #### [facility] [address] [place] [address] pH (U) 6.5 [pH] Normal 5.0-9.0 [facility] Comment on above: Order Comment: Name Collection Type:: Voided Performed By: #### G CCHLAMTRI #### [facility] , #### UA #### [facility] [address] [place] [address] Protein,Urine Negative Normal Negative [facility] Comment on above: Order Comment: Name Collection Type:: Voided Performed By: #### G CCHLAMTRI #### [facility] , #### UA #### [facility] [address] Specificy [place],Urine 1.020 Normal 1.001-1.030 [facility] Comment on above: Order Comment: Name Collection Type:: Voided Performed By: #### G CCHLAMTRI #### [facility] , #### UA #### [facility] [address] Urobilinogen,Urine Normal Normal Normal [facility] Comment on above: Order Comment: Name Collection Type:: Voided Performed By: #### G CCHLAMTRI #### [facility] , #### UA #### [facility] [address] [place] [address] Urine clarity by refractomet ry automatedOrdered By: Ray Ambrocio on 04-07-2023 Clarity Refractometry automated (U) Clear Clear [facility] Urine glucose measurement by automated test strip (mass/volume)Ordered By: Ray Ambrocio on 04-07-2023 Glucose Auto test strip (U) [Mass/Vol] Normal mg/dL Normal [facility] Urine hemoglobin detection b y automated test stripOrdered By: Ray Ambrocio on 04-07-2023 Hemoglobin Auto test strip Ql (U) Negative Negative [facility] Urine leukocyte esterase det ection by automated test stripOrdered By: Ray Ambrocio on 04-07-2023 Leukocyte esterase Auto test strip Ql (U) Negative Negative [facility] Urobilinogen Auto test strip (U) [Mass/Vol]Ordered By: Ray Ambrocio on 04-07-2023 Urobilinogen (U) [Mass/Vol] Normal mg/dL Normal [facility] pH Auto test strip (U)Ordere d By: Ray Ambrocio on 04-07-2023 pH (U) 6.5 [pH] 5.0-9.0 [facility] Covid-19 PCR (CVDTB)on SARS-CoV-2 (COVID-19) RNA HEATH+probe Ql (Unsp spec) Detected Critically abnormal NOT DETECTED [facility] Comment on above: Result Comment: This test is not yet approved or cleared by the [place] FDA. When there are no FDA-approved or cleared tests available, and other criteria are met, FDA can make tests available under an emergency access mechanism called an Emergency Use Authorization (EUA). The EUA for this test is supported by the [place] of Health and Human Service's declaration that [...] used). Performed By: #### C VDTB #### [facility] [address] [place] [address] Dr. Tiffany Huggins INFLUENZA A AND B [facility] 02-01 [facility] SEE BELOW Normal [facility] Comment on above: Result Comment: Nega tive for Flu A protein angiten. Infection due to Flu A cannot be ruled out. Flu A angiten in the sample may be below the detection limit of the test. Performed By: #### I NFLUAB #### [facility] [address] [place] [address] Dr. Tiffany Huggins INFLUBANNER SEE BELOW Normal [facility] Comment on above: Result Comment: Nega tive for Flu B protein antigen. Infection due to Flu B cannot be ruled out. Flu B antigen in the sample may be below the detection limit of the test. Performed By: #### I NFLUAB #### [facility] [address] [place] [address] Dr. Tiffany Huggins INFLUENZA A AG Negative Normal NEGATIVE SEE COMMENT [facility] Comment on above: Performed By: #### I NFLUAB #### [facility] [address] [place] [address] Dr. Tiffany Huggins INFLUENZA B AG Negative Normal NEGATIVE SEE COMMENT [facility] Comment on above: Performed By: #### I NFLUAB #### [facility] [address] [place] [address] Dr. Tiffany Huggins INTERNAL CONTROLS Within Normal Limits Normal Wi thin Normal Limits [facility] Comment on above: Performed By: #### I NFLUAB #### [facility] [address] [address] [address] Tiffany Huggins No Panel Information [facility] Vital Signs Date Time Vital Sign Value Performing Clinician Facility 04-24-2024 08:59-0500 Blood Pressure Location EDD KA[facility] 04-24-2024 08:59-0500 Diastolic blood pressure 98 mm[Hg] EDD JOB [facility] 04-24-2024 08:59-0500 Heart rate 75 /min EDD JOB [facility] 04-24-2024 08:59-0500 Respiratory rate 18 /min EDDZOYA [facility] 04-24-2024 08:59-0500 Systolic blood pressure 146 mm[Hg] EDD JOB [facility] 05-18-2023 17:40-0400 Body height 172.72 cm ACID BATH MIXER-C Sharron Silvermanmer Work Phone: [facility] 05-18-2023 17:40-0400 Body temperature 99.6 [degF] ACID BATH MIXER-C Sharron Tonya Work Phone: [facility] 05-18-2023 17:40-0400 Body weight 90.71 kg ACID BATH MIXER-C Sharron Tonya Work Phone: [facility] 05-18-2023 17:40-0400 Diastolic blood pressure 94 mm[Hg] ACID BATH MIXER-C Sharron Tonya Work Phone: [facility] 05-18-2023 17:40-0400 Heart rate 88 /min ACID BATH MIXER-C Sharron Tonya Work Phone: [facility] 05-18-2023 17:40-0400 Respiratory rate 16 /min ACID BATH MIXER-C Sharron Tonya Work Phone: [facility] 05-18-2023 17:40-0400 SaO2% (BldA) [Mass fraction] 98 % ACID BATH MIXER-C Sharron Tonya Work Phone: [facility] 05-18-2023 17:40-0400 Systolic blood pressure 163 mm[Hg] ACID BATH MIXER-C Sharron Tonya Work Phone: [facility] 04-07-2023 12:29-0500 Body height 172.72 cm ACID BATH MIXER-C Sharron Tonya Work Phone: [facility] 04-07-2023 12:29-0500 Body temperature 97.8 [degF] ACID BATH MIXER-C Sharron Tonya Work Phone: [facility] 04-07-2023 12:29-0500 Body weight 92.2 kg ACID BATH MIXER-C Sharron Tonya Work Phone: [facility] 04-07-2023 12:29-0500 Diastolic blood pressure 95 mm[Hg] ACID BATH MIXER-C Sharron Tonya Work Phone: [facility] 04-07-2023 12:29-0500 Heart rate 79 /min ACID BATH MIXER-C Sharron Tonya Work Phone: [facility] 04-07-2023 12:29-0500 Respiratory rate 18 /min ACID BATH MIXER-C Sharron Tonya Work Phone: [facility] 04-07-2023 12:29-0500 SaO2% (BldA) [Mass fraction] 98 % ACID BATH MIXER-C Sharron Tonya Work Phone: [facility] 04-07-2023 12:29-0500 Systolic blood pressure 150 mm[Hg] ACID BATH MIXER-C Sharron Tonya Work Phone: [facility] 05-07-2021 12:00-0500 Body height 172.72 cm Simon Pink Other [facility] Other 05-07-2021 12:00-0500 Body mass index (BMI) [Ratio] 32.54 kg/m2 Simon Garciakes Other [facility] Other 05-07-2021 12:00-0500 Body weight 97.07 kg Simon Hykes Other [facility] Other 03-19-2021 12:15-0500 Body height 172.72 cm Simon Hykes Other [facility] Other 03-19-2021 12:15-0500 Body mass index (BMI) [Ratio] 32.69 kg/m2 Simon Hykes Other [facility] Other 03-19-2021 12:15-0500 Body weight 97.52 kg Simon Garciakes Other [facility] Other 02-05-2021 11:15-0500 Body height 172.72 cm Simon Garciakes Other [facility] Other 02-05-2021 11:15-0500 Body mass index (BMI) [Ratio] 33.3 kg/m2 Simon Garciakes Other [facility] Other 02-05-2021 11:15-0500 Body weight 99.34 kg Simon Hykes Other [facility] Other 02-05-2021 11:15-0500 Diastolic blood pressure 96 mm[Hg] Simon Hykes Other [facility] Other 02-05-2021 11:15-0500 Systolic blood pressure 134 mm[Hg] Simon Hykes Other [facility] Other 12-15-2020 11:45-0400 Body height 172.72 cm Simon Pink Other [facility] Other 12-15-2020 11:45-0400 Body mass index (BMI) [Ratio] 31.93 kg/m2 Simon Pink Other [facility] Other 12-15-2020 11:45-0400 Body weight 95.26 kg Simon Pink Other [facility] Other Encounters Encounter Date Encounter Type Care Provider Facility Start: 06-25-2024 ambulatory EDD Loi ty:[facility] Start: 04-24-2024 End: 04-24-2024 ambulatory EDD [facility] Facility:[facility] Start: 04-24-2024 End: 04-24-2024 Patient encounter procedure EDD [facility] Start: 11-21-2023 End: 11-21-2023 ambulatory Francesco [facility]ER [facility] Start: 11-21-2023 End: 11-21-2023 Patient encounter procedure Francesco BUTLER [facility] Start: 07-11-2023 End: 07-11-2023 ambulatory [facility] Start: 06-14-2023 End: 06-15-2023 ambulatory [facility] Start: 06-13-2023 End: 06-13-2023 ambulatory REKHA BURROUGHS Not Available Start: 05-24-2023 End: 05-24-2023 ambulatory [facility] Start: 05-18-2023 End: 05-18-2023 Emergency department patient visit Ray Ambrocio Facility:[facility] Start: 05-18-2023 End: 05-18-2023 Emergency department patient visit ACID BATH MIXER-Elisabeth Cerrato Work Phone: [facility] Work Phone: Start: 05-12-2023 End: 05-12-2023 ambulatory GARETT CHIRINOS Facility:[facility] Start: 05-12-2023 End: 05-12-2023 Patient encounter procedure aGrett Chirinos MD Work Phone: Ophthalmology Comment on above: Corneal scar, left e ye (Primary Dx); Traumatic mydriasis; Foreign body of left cornea, initial encounter Start: 04-28-2023 End: 04-28-2023 ambulatory KYLE PANCHAL Facility:[facility] Start: 04-28-2023 End: 04-28-2023 Patient encounter procedure Kyle Panchal OD Work Phone: Ophthalmology Comment on above: Traumatic mydriasis (Primary Dx); Corneal scar, left eye Start: 04-07-2023 End: 04-07-2023 Emergency department patient visit Ray Ambrocio Facility:[facility] Start: 04-07-2023 End: 04-07-2023 Emergency department patient visit ACID BATH MIXER-Elisabeth Cerrato Work Phone: [facility] Work Phone: Start: 04-14-2022 ambulatory SHARRON CERRATO Facility: [facility] Start: 02-01-2022 End: 02-01-2022 ambulatory SHARRON CERRATO Facility:[facility] Start: 01-12-2022 End: 01-12-2022 ambulatory Kendall Brown Other [facility] Other Start: 01-12-2022 Telephone encounter Kendall Ventura ck [facility] Start: 09-07-2021 End: 09-07-2021 ambulatory Simon Pink Other [facility] Other Start: 09-07-2021 Telephone encounter Simon Pink [facility] Start: 05-07-2021 End: 05-07-2021 ambulatory Simon Pink Other [facility] Other Start: 05-07-2021 Office outpatient visit 15 minutes Simon Pink [facility] Start: 03-19-2021 End: 03-19-2021 ambulatory Simon Pink Other [facility] Other Start: 03-19-2021 Office outpatient visit 25 minutes Simon Pink [facility] Start: 03-04-2021 End: 03-04-2021 ambulatory Simon Pink Other [facility] Other Start: 03-04-2021 Telephone encounter Simon Pink [facility] Start: 02-05-2021 End: 02-05-2021 ambulatory Simon Pink Other [facility] Other Start: 02-05-2021 Office outpatient visit 15 minutes Simon Pink [facility] Start: 12-25-2020 Telephone encounter Simon Pink [facility] Start: 12-19-2020 Telephone encounter Simon Pink [facility] Start: 12-15-2020 Encounter by [employer] r link Simon Pink [facility] Start: 12-15-2020 Office outpatient visit 25 minutes Simon Pink [facility] Procedures Date Procedure Procedure Detail Performing Clinician Start: 06-14-2023 ENDOTHELIAL PHOTOGRAPHY - OU - BOTH EYES MIKE BOYER Start: 05-24-2023 CORNEAL TOPOGRAPHY - OU - BOTH EYES MIKE BOYER Start: 05-12-2023 Computerized corneal topography uni/bi Garett Chirinos MD Work Phone: Start: 05-12-2023 Cmptr ophthalmic dx img ant segmt w/i&r uni/bi Garett Chirinos MD Work Phone: Start: 05-12-2023 Rmvl fb xtrnl eye corneal w/slit lamp Garett Chirinos MD Work Phone: Start: 04-07-2023 US, scrotum ACID BATH MIXER-C Sharronjorge luis Silvermanmer Work Phone: Start: 02-20-2020 Esophagogastroduodenoscopy Francesco Lugo Start: 02-29-2016 Appendectomy Francesco BUTLER Amputation of thumb Francesco BUTLER Comment on above: left thumb repair History of ankle surgery Angelina BUTLER Ophthalmic surgery ( qualifier value) Francesco BUTLER Perforation of tympa gomez membrane (disorder) Francesco BUTLER Plan of Treatment Date Care Activity Detail Author Start: 10-30-2023 Influenza vaccination Influenz a Vaccine (Season Ended) [facility] Start: 04-07-2023 [facility] Start: 02-28-2023 Behavioral Health Screening Behavioral Health Screening [facility] Start: 02-28-2023 Depression Assessment Depression Ass essment [facility] Start: 10-29-2022 Covid-19 Vaccine ( season) Covid-19 Vaccine ( season) [facility] Start: 10-29-2022 Influenza vaccination Influenza Vacc ine (#1) [facility] Start: 11-06-2014 Lipid panel Lipid Screening [facility] Start: 11-06-1998 Hepatitis B Vaccine (1 of 3 - 19+ 3-dose series) Hepatitis B Vaccine (1 of 3 - 19+ 3-dose series) [facility] Start: 11-06-1998 Urine microalbumin profile DTaP,Tdap,Td Vaccine (1 - Tdap) [facility] Start: 11-06-1997 Hepatitis C screening Hepatitis C Sc reening [facility] Start: 11-06-1997 HIV screening HIV Screening [facility] Start: 05-06-1980 Covid-19 Vaccine (#1) Covid-19 Vacci ne (#1) [facility] Start: 1979 Hepatitis B Vaccine (1 of 3 - 3-dose series) Hepatitis B Vaccine (1 of 3 - 3-dose series) [facility] Chlamydia trachomati s DNA [Presence] in Unspecified specimen by HEATH with probe detection [facility] Neisseria gonorrhoea e DNA [Presence] in Unspecified specimen by HEATH with probe detection [facility] Patient Education [facility] Work Phone: Patient referral [facility] Work Phone: Trichomonas vaginali s DNA [Presence] in Unspecified specimen by HEATH with probe detection [facility] Immunizations Immunization Date Immunization Notes Care Provider Elizabeth merchant 09-13-2016 Toradol per 15 mg Simon lugo Other [facility] Other 10-30-2015 Toradol per 15 mg Simon lugo Other [facility] Other 10-05-2012 Depo-Medrol 40 mg Simon lugo Other [facility] Other Payers Date Payer Category Payer Self-pay [id number] 2022 Medicaid [place] [employer] [id number] 2022-Present [phone] [address] [place] [address] Medicaid [id number] 1979 Unknown [id number] 1979 Unknown [id number] 1979 Unknown [id number] 1979 Unknown [id number] 1979 Unknown [id number] [id number] 1979 Unknown [id number] 1979 Unknown [id number] [id number] 1979 Unknown [id number] [id number] 1979 Unknown [id number] [id number] 1959 Self-pay [id number] 1959 Unknown [id number] Unknown [facility] [id number] Unknown [id number] Unknown [id number] Unknown [id number] Social History Date Type Detail Facility Start: 08-27-2017 End: 05-12-2023 Sex Assigned At [facility] Start: 04-07-2023 End: 05-18-2023 Tobacco smoking status HIIS Never smoked tobacco (finding) [facility] Start: 1980 Sex Assigned At Male F [facility] Start: 10-18-2013 End: 04-24-2024 Tobacco smoking status NHIS Ex-smoker [facility] History of tobacco use Current smoker [facility] Start: 04-28-2023 End: 05-12-2023 Alcohol intake Current drinker of alcohol (finding) [facility] Start: 04-28-2023 End: 05-12-[address] [facility] National Score (1-10 0), lower number is lower risk 64 [facility] Start: 10-18-2013 Tobacco Comment [facility] Start: 1980 [facility] Functional Status Date Assessment Result Facility 04-24-2024 Functional Status N/A [facility] Clinical Notes 12-15-2020 to 04-24-2024 Garett Chirinos MD - 05/12/2023 10:39 AM Jose Juan Bernal MD - 05/12/2023 10:05 AM Kyle Moralez OD - 04/28/2023 9:14 AM EST Note Date & Type Note Facility 04-24-2024 Hospital Discharge instructions Patient Education 04/24/2024 10:11:58 Prostatitis Prostatitis Prostatitis is swelling or inflammation of the prostate gland, also called the prostate. This gland is about 1.5 inches wide and 1 inch high, and it is involved in making semen. The prostate is located below a man's bladder, in front of the rectum. There are four types of prostatitis: Chronic prostatitis (CP), also called chronic pelvic pain syndrome (CPPS). This is the most common type of prostatitis. It is associated with increased muscle tone in the area between the hip bones (pelvic area), around the prostate. This type is also known as a pelvic floor disorder. Chronic bacterial prostatitis. This type usually results from an acute bacterial infection in the prostate gland that keeps coming back or has not been treated properly. The symptoms are less severe than those caused by acute bacterial prostatitis, which lasts a shorter time. Asymptomatic inflammatory prostatitis. This type does not have symptoms and does not need treatment. This is diagnosed when tests are done for other disorders of the urinary tract or reproductive tract. Acute bacterial prostatitis. This type starts quickly and results from an acute bacterial infection in the prostate gland. It is usually associated with a bladder infection, high fever, and chills. This is the least common type of prostatitis. What are the causes? Bacterial prostatitis is caused by an infection from bacteria. Chronic nonbacterial prostatitis may be caused by: Factors related to the nervous system. This system includes thebrain, spinal cord, and nerves. An autoimmune response. This happens when the body's disease-fighting system attacks healthy tissue in the body by mistake. Psychological factors. These have to do with how the mind works. The causes of the other types of prostatitis are usually not known. What are the signs or symptoms? Symptoms of this condition depend on the type of prostatitis you have. Acute bacterial prostatitis Symptoms may include: Pain or burning during urination. Frequent and sudden urges to urinate. Trouble starting to urinate. Fever. Chills. Pain in your muscles or joints, lower back, or lower abdomen. Other types of prostatitis Symptoms may include: Sudden urges to urinate, or urinating often. Trouble starting to urinate. Weak urine stream. Dribbling after urination. Discharge coming from the penis. Pain in the testicles, the penis, or the tip of the penis. Pain in the area in front of the rectum and below the scrotum (perineum). Pain when ejaculating. How is this diagnosed? This condition may be diagnosed based on: A physical and medical exam. A digital rectal exam. For this, the health care provider may use a finger to feel the prostate. A urine test to check for bacteria. A semen sample or blood tests. Ultrasound. Urodynamic tests to check how your body handles urine. Cystoscopy to look inside your bladder or inside the part of your body that drains urine from the bladder (urethra). How is this treated? Treatment for this condition depends on the type of prostatitis. Treatment may involve: Medicines to relieve pain or inflammation, or to help relax your muscles. Physical therapy. Heat therapy. Biofeedback. These techniques help you control certain body functions. Relaxation exercises. Antibiotic medicine, if your condition is caused by bacteria. Sitz baths. These warm water baths help to relax your pelvic floor muscles, which helps to relieve pressure on the prostate. Follow these instructions at home: Medicines Take qagn-wsd-jhuccph and prescription medicines only as told by your health care provider. If you were prescribed an antibiotic medicine, take it as told by your health care provider. Do not stop using the antibiotic even if you start to feel better. Managing pain and swelling Take sitz baths as directed by your health care provider. For a sitz bath, sit in warm water that is deep enough to cover your hips and buttocks. If directed, apply heat to the affected area as often as told by your health care provider. Use the heat source that your health care provider recommends, such as a moist heat pack or a heating pad. ?Place a towel between your skin and the heat source. ?Leave the heat on for 20 30 minutes. ?Remove the heat if your skin turns bright red. This is especially important if you are unable to feel pain, heat, or cold. You may have a greater risk of getting burned. General instructions Do exercises as told by your health care provider, if you were prescribed physical therapy, biofeedback, or relaxation exercises. Keep all follow-up visits as told by your health care provider. This is important. Where to find more information National [place] of Diabetes and Digestive and Kidney Diseases: https://www.niddk.nih.gov Contact a health care provider if: Your symptoms get worse. You have a fever. Get help right away if: You have chills. You feel light-headed or feel like you may faint. You cannot urinate. You have blood or blood clots in your urine. Summary Prostatitis is swelling or inflammation of the prostate gland. Treatment for this condition depends on the type of prostatitis. Take eadl-pyu-wvhaqkg and prescription medicines only as told by your health care provider. Get help right away of you have chills, feel light-headed, feel like you may faint, cannot urinate, or have blood or blood clots in your urine. This information is not intended to replace advice given to you by your health care provider. Make sure you discuss any questions you have with your health care provider. Document Revised: 12/30/2022 Document Reviewed: 12/30/2022 [employer] Patient Education 2023 [employer]. Follow Up Care 04/23/2024 14:32:25 With:JOB XIAO, EDD Posey, URL Address: [address] [place], [place] [address] [address] When:Within 2 Month(s) [facility] 04-24-2024 Note Urology Office/Clini c Note Chief Complaint referral testicular pain HPI Staff 43 yr old male [facility] for right testicular pain. Describes it as low dull ache and burning. Pain gets worse after intercourse. Thinks initial issue may have happened during sex, can't remember. He has been having pain since Oct 2022. PCP did treat w Cipro x 10d in Dec 2022 and then another round x 14d in Jan 2023. Scrotal US 02/18/23 tiny R hydrocele, otherwise unremarkable. Bladder/renal US same day showed small simple R renal cyst. Repeat Scrotal US 04/07/23 shows small L varicocele, nonspecific mild heterogeneity of L epididymal head. Also has concerns about testicles hanging unevenly. Was previously referred but was unable to make an appt due to scheduling issues. Has not seen other Urology previously. IPSS 14 QOL 4 - urinary frequency (3), mild urgency (1), intermittency (3), weak stream (3), straining (3), and nocturia x1. No sense of incomplete emptying. Could not provide urine sample. . Same sexual partner for years. No high risk sexual behavior. No concern for STDs. HARVEY 25. Review of Systems PHQ Score Initial Depression Screen Score: 0 SCORE No fever, chills, malaise, myalgia. No pain w/ BM. No blood in urine, ejaculate, or stool. No rash/lesions. No abdominal pain, nausea, vomiting. Physical Exam Vitals & Measurements HR: 75(Peripheral) RR: 18 BP: 146/98 HT: 68 in HT: 173 cm WT: 94 kg WT: 207.234 lb BMI: 31.41 General: nontoxic, NAD Mouth: moist mucosa Lungs: normal respiratory effort Cardio: regular rate, good distal perfusion Abdomen: nondistended, no suprapubic distention or tenderness, no CVA tenderness Neurologic: Grossly normal Skin: No rashes or suspicious lesions : Mild R hydrocele. Do not appreciate L varicocele. Testicles nontender bilat without discrete nodules. Epididymis nontender without swelling or cysts bilat. No inguinal hernia appreciated. Assessment/Plan 1. Chronic prostatitis (N41.1: Chronic prostatitis) Will hold off on additional imaging at this time since pt already had scrotal US x 2 without significant findings and his sx are not worsening/changing they are just persistent. The patient likely has chronic prostatitis. He was advised about the different possible causes of bacterial and non-bacterial prostatitis. He needs to complete the course of prescribed antibiotics. We will use full 6 weeks since this has been going on 1.5 yrs. He understands that the symptoms improve if he decreases his exercise and activity level. Anti-inflammatory medicines can also be helpful, as well as frequent ejaculations. Hot baths are also helpful in easing the discomfort. -6 wks Bactrim (failed Cipro short course x 2 in 2022). NSAIDs x 2 weeks (No hx GI bleed. Advised do not take with other NSAIDs. Take with food.) Start Flomax. Consider weaning off Flomax at f/u visit in 2 months. Pt to call in meantime if things not improving as expected. Ordered: E&M of New Patient Moderate 45-59 Min [id number] Orders: naproxen, 500 mg = 1 tab(s), Oral, BID, with food, X 14 day(s), # 28 tab(s), Refills(s) 0, [id number], 173, cm, 04/24/24 9:04:00 EST, Height/Length Dosing, 94, kg, 04/24/24 9:04:00 EST, Weight Dosing sulfamethoxazole-trimethoprim, 1 tab(s), Oral, BID for 6 week(s), 84 tab(s), Refill(s) 0, [facility]/pharmacy #[id number], 173, cm, 04/24/24 9:04:00 EST, Height/Length Dosing, 94, kg, 04/24/24 9:04:00 EST, Weight Dosing tamsulosin, 0.4 mg = 1 cap(s), Oral, Daily, # 30 cap(s), Refills(s) 2, Pharmacy: [facility]/pharm[facility] #[id number], 173, cm, 04/24/24 9:04:00 EST, Height/Length Dosing, 94, kg, 04/24/24 9:04:00 EST, Weight Dosing Body Mass Index (BMI) documented 3008F Current tobacco non-user 1036F Depression Screening Negative 3352F Influenza immunization status assessed 1030F Medication list documented in medical record 1159F Most recent diastolic blood pressure >=90 mm Hg 3080F Most recent systolic blood pressure >= 140 mm Hg 3077F Review of all meds by a prescribing practitioner or clinical pharmacist documented in EHR 1160F Follow-up With When Contact Information JOB XIAO, EDD Posey, HELEN In 2 months [address] [place] [address] Additional Instructions: Patient Education Prostatitis Problem List/Past Medical History Ongoing Abdominal pain, left upper quadrant Chronic prostatitis Chronic tension headaches Epigastric pain Genital herpes simplex GERD (gastroesophageal reflux disease) Hyperlipidemia Insomnia Low hemoglobin Historical No qualifying data Procedure/Surgical History EGD - Esophagogastroduodenoscopy (02/20/2020), Appendectomy (02/29/2016), Amputation of thumb, Eye surgery, History of ankle surgery, Perforated eardrum. Medications Bactrim D.S. 800 mg-160 mg Tab, 1 tab(s), Oral, BID Flomax 0.4 mg Cap, 0.4 mg= 1 cap(s), Oral, Daily, 2 refills Multivitamin, Therapeutic w/ Minerals, 1 tab(s), Oral, Daily Naprosyn 500 mg Tab, 50 (more content not included)... [facility] Comment on above: Result Comment: Elec tronically Signed By: EDD KAISER PA-C\.br\Date and Time Signed: 04/24/24 10:15 EST 04-24-2024 Note Patient Education Infectious Disease Prostatitis Prostatitis is swelling or inflammation of the prostate gland, also called the prostate. This gland is about 1.5 inches wide and 1 inch high, and it is involved in making semen. The prostate is located below a man's bladder, in front of the rectum. There are four types of prostatitis: ??? Chronic prostatitis (CP), also called chronic pelvic pain syndrome (CPPS). This is the most common type of prostatitis. It is associated with increased muscle tone in the area between the hip bones (pelvic area), around the prostate. This type is also known as a pelvic floor disorder. ??? Chronic bacterial prostatitis. This type usually results from an acute bacterial infection in the prostate gland that keeps coming back or has not been treated properly. The symptoms are less severe than those caused by acute bacterial prostatitis, which lasts a shorter time. ??? Asymptomatic inflammatory prostatitis. This type does not have symptoms and does not need treatment. This is diagnosed when tests are done for other disorders of the urinary tract or reproductive tract. ??? Acute bacterial prostatitis. This type starts quickly and results from an acute bacterial infection in the prostate gland. It is usually associated with a bladder infection, high fever, and chills. This is the least common type of prostatitis. What are the causes? Bacterial prostatitis is caused by an infection from bacteria. Chronic nonbacterial prostatitis may be caused by: ??? Factors related to the nervous system. This system includes thebrain, spinal cord, and nerves. ??? An autoimmune response. This happens when the body's disease-fighting system attacks healthy tissue in the body by mistake. ??? Psychological factors. These have to do with how the mind works. The causes of the other types of prostatitis are usually not known. What are the signs or symptoms? Symptoms of this condition depend on the type of prostatitis you have. Acute bacterial prostatitis Symptoms may include: ??? Pain or burning during urination. ??? Frequent and sudden urges to urinate. ??? Trouble starting to urinate. ??? Fever. ??? Chills. ??? Pain in your muscles or joints, lower back, or lower abdomen. Other types of prostatitis Symptoms may include: ??? Sudden urges to urinate, or urinating often. ??? Trouble starting to urinate. ??? Weak urine stream. ??? Dribbling after urination. ??? Discharge coming from the penis. ??? Pain in the testicles, the penis, or the tip of the penis. ??? Pain in the area in front of the rectum and below the scrotum (perineum). ??? Pain when ejaculating. How is this diagnosed? This condition may be diagnosed based on: ??? A physical and medical exam. ??? A digital rectal exam. For this, the health care provider may use a finger to feel the prostate. ??? A urine test to check for bacteria. ??? A semen sample or blood tests. ??? Ultrasound. ??? Urodynamic tests to check how your body handles urine. ??? Cystoscopy to look inside your bladder or inside the part of your body that drains urine from the bladder (urethra). How is this treated? Treatment for this condition depends on the type of prostatitis. Treatment may involve: ??? Medicines to relieve pain or inflammation, or to help relax your muscles. ??? Physical therapy. ??? Heat therapy. ??? Biofeedback. These techniques help you control certain body functions. ??? Relaxation exercises. ??? Antibiotic medicine, if your condition is caused by bacteria. ??? Sitz baths. These warm water baths help to relax your pelvic floor muscles, which helps to relieve pressure on the prostate. Follow these instructions at home: Medicines ??? Take lidm-san-higqunf and prescription medicines only as told by your health care provider. ??? If you were prescribed an antibiotic medicine, take it as told by your health care provider. Do not stop using the antibiotic even if you start to feel better. Managing pain and swelling ??? Take sitz baths as directed by your health care provider. For a sitz bath, sit in warm water that is deep enough to cover your hips and buttocks. ??? If directed, apply heat to the affected area as often as told by your health care provider. Use the heat source that your health care provider recommends, such as a moist heat pack or a heating pad. ? Place a towel between your skin and the heat source. ? Leave the heat on for 20?30 minutes. ? Remove the heat if your skin turns bright red. This is especially important if you are unable to feel pain, heat, or cold. You may have a greater risk of getting burned. General instructions ??? Do exercises as told by your health care provider, if you were prescribed physical therapy, biofeedback, or relaxation exercises. ??? Keep all follow-up visits as told by your health care provider. This is important. (more content not included)... [facility] 05-12-2023 Note HNO ID: [id number] Author: GARETT CHIRINOS MD Service: ? Author Type: Physician Type: Progress Notes Filed: 06/01/2023 16:49 Note Text: Remove corneal suture Left eye (not TS-Intraocular lens sutures), could be causing asymmetric corneal flattening locally Lens looks stable Recommend seeing Dr. Bita cage. Iris prosthesis Costume contact lens option not paid by his insurance Ortho since XT surgery I have confirmed and edited as necessary the relevant ophthalmic history, ROS, and the neuro exam findings as obtained by others. I have seen and examined this patient. I have discussed the case and the management of this patient's care with the Resident/Fellow, if applicable. I also have reviewed and agree with the assessment and plan as stated above and agree with all of its relevant components. [facility] 05-12-2023 Note HNO ID: [id number] Author: JOSE JUAN CROW MD Service: ? 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 - Patient with significant glare OS and light sensitivity - saw Dr. Panchal. Fitted with annular pupil lens though not covered with insurance - Exam with corneal scars and iris loss 3:30-6:00. - Pentacam with Irregular astigmatisim 4.9D with focal steepning ST - Interested in iris surgery. Hx of strabismus surgery, OS -Exotropia s/p RANDR OS [address] Flores -Still endorsing chronic diplopia Jose Juan Crow MD Ophthalmology PGY [address] [facility] 05-12-2023 History of Present illness Narrative Remove corneal suture Left eye (not TS-Intraocular lens sutures), could be causing asymmetric corneal flattening locally Lens looks stable Recommend seeing Dr. Bita cage. Iris prosthesis Costume contact lens option not paid by his insurance Ortho since XT surgery I have confirmed and edited as necessary the relevant ophthalmic history, ROS, and the neuro exam findings as obtained by others. I have seen and examined this patient. I have discussed the case and the management of this patient's care with the Resident/Fellow, if applicable. I also have reviewed and agree with the assessment and plan as stated above and agree with all of its relevant components. 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 - Patient with significant glare OS and light sensitivity - saw Dr. Panchal. Fitted with annular pupil lens though not covered with insurance - Exam with corneal scars and iris loss 3:30-6:00. - Pentacam with Irregular astigmatisim 4.9D with focal steepning ST - Interested in iris surgery. Hx of strabismus surgery, OS -Exotropia s/p R&R OS [address] Flores -Still endorsing chronic diplopia Jose Juan Crow MD Ophthalmology PGY 2 documented in this encounter [facility] 04-28-2023 Note HNO ID: [id number] Author: KYLE PANCHAL OD Service: ? Author Type: [employer] Type: Progress Notes Filed: 04/28/2023 09:15 Note Text: 1. 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 Last exam was 6 weeks ago -pt ed, fit with annular pupil lens with power to help with photophobia. Pt to see if option with insurance or will self pay here -D/c lenses and rtc w/any pain,redness or vision change I have confirmed and edited as necessary the relevant ophthalmic history, ROS, and the neuro exam findings as obtained by others. I have seen and examined Sandhya Mercer JR . I have discussed the case and the management of this patient's care with the Resident/Fellow, if applicable. I also have reviewed and agree with the assessment and plan as stated above and agree with all of its relevant components. Kyle Panchal OD [facility] 04-28-2023 History of Present illness Narrative 1. 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 Last exam was 6 weeks ago -pt ed, fit with annular pupil lens with power to help with photophobia. Pt to see if option with insurance or will self pay here -D/c lenses and rtc w/any pain,redness or vision change I have confirmed and edited as necessary the relevant ophthalmic history, ROS, and the neuro exam findings as obtained by others. I have seen and examined Sandhya Mercer JR . I have discussed the case and the management of this patient's care with the Resident/Fellow, if applicable. I also have reviewed and agree with the assessment and plan as stated above and agree with all of its relevant components. Kyle Panchal OD documented in this encounter [facility] 03-02-2023 Hospital Discharge instructions Follow Up Care 03/02/2023 10:19:03 With:ALECIA MALONE, Francesco Jackman, URL Address: [facility] [address], [place] [address]- [phone] When: Unknown [facility] 05[facility]07-[facility]21 Evaluation note Encounter Date Diagnosis Assessment Notes Apr, Irritable bowel syndrome with diarrhea (ICD-10 - K58.0) CONTINUE DICYCLOMINE NEEDED PT GIVEN COPY OF LOW FODMAP DIET RTO 8 WEEKS Apr, GERD (gastroesopha geal reflux disease) (ICD-10 - K21.9) [facility] Other 12-09-2021 Evaluation note* Encounter Date Diagnosis Assessment Notes Treatment Notes Treatment Clinical Notes Jan, Exocrine pancreatic insufficiency (ICD-10 - K86.81) CONTINUE ZENPEP Jan, Irritable bowel syndrome with diarrhea (ICD-10 - K58.0) Jan, GERD (gastroesophageal reflux disease) (ICD-10 - K21.9) Jan, Other START DICYCL OMINE 20MG BID [facility] Other 10-22-2021 Evaluation note* Encounter Date Diagnosis Assessment Notes Treatment Notes Treatment Clinical Notes Nov, Diarrhea (ICD-10 - R19.7) [facility] Other 10-18-2021 Evaluation note* Encounter Date Diagnosis Assessment Notes Treatment Notes Treatment Clinical Notes Nov, GERD (gastroesophageal reflux disease) (ICD-10 - K21.9) CONTINUE PANTOPRAZOLE WITHOUT CHANGE RTO ONE MONTH Nov, Exocrine pancreatic insufficiency (ICD-10 - K86.81) START TRIAL OF ZENPEP 40,000 TID WITH MEALS ( SAMPLES GIVEN TO PT) Nov, Abdominal pain (ICD-10 - R10.9) Nov, Diarrhea (ICD-10 - R19.7) [facility] Other Evaluation + Plan note No data available for this section [facility] evaluation + Plan note Future Appointments Appointment Date:06/25/2024 08:20:00 AM Scheduled Provider:EDD KAISER PA-C Location:[facility] Appointment Type:URO Office Visit [facility] evaluation noteNo InformationNortWote Other evaluation noteNortWote Other Evalutpdst noteNo assessment information available [facility] Work Phone: evaluation note* Diagnosis Traumatic mydriasis- Primary Mydriasis (persistent), not due to mydriatics Corneal scar, left eye Corneal opacity, unspecified [facility] Diagnosis Corneal scar, left eye- Primary Corneal opacity, unspecified Traumatic mydriasis Mydriasis (persistent), not due to mydriatics Foreign body of left cornea, initial encounter documented in this encounter [facility] general Narrative - Reported* Type Description Date Medical History GERD Surgical History optical lens removed Surgical History wisdom teeth extract Surgical History pins in the lt ankle and remova l Surgical History reattached thumb Hospitalization History see surgical hx [facility] Other History general Narrative - ReportedNortWote Other [facility] general Narrative - Reported* Type Description Date Medical History GERD Medical History IBS Surgical History optical lens removed Surgical History wisdom teeth extract Surgical History pins in the lt ankle and remova l Surgical History reattached thumb Hospitalization History see surgical hx [facility] Other Progress note No data available for this section [facility] Summary Purpose Family History No Family History Records FoundNo Family History Records FoundNo Family History Records FoundNo Family History Records FoundNo Family History Records Found No data available for this section No Family History Records Found No data available for this section Advance Directives Advance Directive Response Recorded Date/ Time Advance Directives No January 30, 2017 11:36am Advance Directive Response Recorded Date/ Time Advance Directives No January 30, 2017 12:36pm Chief Complaint and Reason for Visit Chief Complaint personal Chief Complaint personal throat swelling Additional Source Comments REASON FOR VISIT (unrecogniz ed section and content) Reason Comments Aphakia Evaluation S/p implant OS, visi on is much better but still having issues with light sensitivity Reason Comments Corneal Scar Left EyeS/P: sutured lens/vitrectomy with at [facility] 2021 (unrecognized sect ion and content) No Status Records FoundNo Status Records FoundNo Status Records FoundNo Status Records FoundNo Status Records FoundNo Status Records Found INFORMATION SOURCE (unrecogn ized section and content) DATE CREATED AUTHOR 04/14/2022 [facility] DATE CREATED AUTHOR AUTHOR'S ORGANIZ ATION 05/20/2023 [facility] DATE CREATED AUTHOR AUTHOR'S ORGANIZ ATION 06/03/2023 [facility] DATE CREATED AUTHOR AUTHOR'S ORGANIZ ATION 06/14/2023 [facility] EPIC DATE CREATED AUTHOR AUTHOR'S ORGANIZ ATION 07/12/2023 [facility] DATE CREATED AUTHOR AUTHOR'S ORGANIZ ATION 04/25/2024 [facility] Care Teams (unrecognized sec tion and content) Personnel Name: SHARRON CERRATO CNP Address: Address: [address] [place], [place] [address] Team Status: Active Member Role Status Dates NETO Nunes Primary Care Provider Active Team Status: Inactive Member Role Status Dates NETO Nunes Primary Care Provider Active Start: April 07, 2023 End: April 07, 2023 Ray Ambrocio APRN Emergency Provider Active Start: April 07, 2023 End: April 07, 2023 Ophthalmic Surgeon Relationship Specialty Start Date End Date AcuñaVictor Manuel Jr. PCP - General Family Medicine 12/16/09 Team Status: Inactive Member Role Status Dates NETO Nunes Primary Care Provider Active Start: May 18, 2023 End: May 18, 2023 Ray Ambrocio APRN Emergency Provider Active Start: May 18, 2023 End: May 18, 2023 Ophthalmic Surgeon Relationship Specialty Start Date End Date Victor Manuel Acuña Jr. PCP - General Family Medicine 12/16/09 Goals (unrecognized section and content) Goals may be documented in a n alternate section Source Comments (unrecognize d section and content) In the event this informatio n is protected by the Federal Confidentiality of Alcohol and Drug Abuse Patient Records regulations: The Federal rules restrict any use of the information to criminally investigate or prosecute any alcohol or drug abuse patient.[facility] the event this information is protected by the Federal Confidentiality of Alcohol and Drug Abuse Patient Records regulations: The Federal rules restrict any use of the information to criminally investigate or prosecute any alcohol or drug abuse patient.[facility] Inactive Administered Medications - up to 3 most recent administrations Administered Medications (un recognized section and content) Medication Order MAR Action Action Date Dose Rate Site PHENYLephrine 2.5 % 1 Drop (AK-DILATE, TIANNA-SYNEPHRINE) 1 Drop, BOTH EYES, DIRECTED, Starting on Tue05/12/23 at 0800, Until Tue05/12/23 at 1959, Administer for dilation PROTECT FROM LIGHT Given 05/12/2023 8:00 AM EDT 1 Drop proparacaine 0.5 % 1 Drop (ALCAINE) 1 Drop, BOTH EYES, DIRECTED, Starting on Maricruz 05/12/23 at 0800, Until Maricruz 05/12/23 at 1958, Administer for applanation tonometry, pneumo tonometry, tonopen tonometry, or pachymetry. In the event of a proparacaine shortage, administer tetracaine 0.5% ophthalmic drops 1 drop in both eyes as directed for pneumo tonometry, tonopen tonometry, or pachymetry Given 05/12/2023 8:00 AM EDT 1 Drop tropicamide 1 % 1 Drop (MYDRIACYL) 1 Drop, BOTH EYES, DIRECTED, Starting on Maricruz 05/12/23 at 0800, Until Maricruz 05/12/23 at 1958, Administer for dilation Given 05/12/2023 8:00 AM EDT 1 Drop FOR RECORDS PERTAINING TO PATIENTS WHO ARE [...] [facility] [employer] [facility]. provides no warranty or guarantee of the accuracy or completeness of information in this document.
[2024-04-25 11:09] LABS: Basophils Percent Auto 0.4 % (0.2-2.0); Eosinophils Absolute Auto 0.2 10^3/uL (0.0-0.7); Eosinophils Percent Auto 2.9 % (0.9-7.0); Hematocrit 46.7 % (42.0-54.0); Hemoglobin 15.3 g/dL (14.0-18.0); Immature Granulocytes Abs Auto 0.05 10^3/uL (0.00-0.03); Immature Granulocytes Pct Auto 0.7 % (0.0-0.5); Lymphocytes Absolute Auto 2.1 10^3/uL (1.2-3.8); Lymphocytes Percent Auto 30.7 % (20.5-60.0); Mean Corpuscular HGB Conc 32.8 g/dL (29.9-35.2); Mean Corpuscular Hemoglobin 26.6 pg (25.9-34.0); Mean Corpuscular Volume 81.2 fL (80.0-94.0); Mean Platelet Volume 10.4 fL (9.5-13.5); Monocytes Absolute Auto 0.7 10^3/uL (0.3-0.8); Monocytes Percent Auto 10.6 % (1.7-12.0); Neutrophils Absolute Auto 3.8 10^3/uL (1.4-6.5); Neutrophils Percent Auto 54.7 % (43.0-75.0); Platelet Count 247 10^3/uL (150-450); Red Blood Count 5.75 10^6/uL (4.70-6.10); Red Cell Distribution Width 12.9 % (11.0-15.0); White Blood Count 6.9 10^3/uL (4.0-11.0)
[2024-04-25 11:51] LABS: Estimated Average Glucose 114 mg/dL; Glycohemoglobin A1C 5.6 % (4.5-6.2)
[2024-04-25 12:37] LABS: Alanine Aminotransferase 92 U/L (16-63); Albumin Globulin Ratio 1.3; Albumin Level 4.3 g/dL (3.4-5.0); Alkaline Phosphatase 44 U/L (46-116); Anion Gap 17.6; Aspartate Amino Transferase 36 U/L (15-37); BUN Creatinine Ratio 15.8; Bilirubin Total 0.4 mg/dL (0.2-1.0); Calcium 9.2 mg/dL (8.5-10.1); Carbon Dioxide 24.5 mmol/L (21.0-32.0); Chloride 101 mmol/L (98-107); Chol HDL Ratio 5.4; Cholesterol 282 mg/dL (<=200); Estimated GFR (African America >60 (>=60 mL/min/1.73m^2); Estimated GFR (Non-African Ame >60 (>=60 mL/min/1.73m^2); Free T3 2.56 pg/mL (2.18-3.98); Globulin 3.4 g/dL; Glucose 93 mg/dL (74-106); HDL Cholesterol 52 mg/dL (40-60); Potassium 4.1 mmol/L (3.5-5.1); Sodium 139 mmol/L (136-145); Thyroid Stimulating Hormone 2.214 uIU/mL (0.358-3.740); Total Protein 7.7 g/dL (6.4-8.2); Triglycerides 237 mg/dL (<=150); Uric Acid 8.4 mg/dL (3.5-7.2); VLDL CHOLESTEROL 47.4 mg/dL
[2024-04-25 13:16] LABS: Prostate Specific Antigen Scrn 0.65 ng/mL (<=4.00)
[2024-04-26 06:07] LABS: Insulin 21.8 uIU/mL (2.6-24.9)
== END 2024-04-25 10:17 | disposition home or self-care (01) ==
LOC: LAB 10:18
PROVIDERS: PCP Nurse Practitioner Family; Visit Provider Nurse Practitioner Family
DX: Z00.00 Encounter for general adult medical examination without abnormal findings (principal); Z12.5 Encounter for screening for malignant neoplasm of prostate
CPT/HCPCS: 36415; 80053; 80061; 83036; 83525; 84436; 84443; 84481; 84550; 85025; G0103

== ENCOUNTER 2024-05-10 11:22 | Outpatient (OUT) | payer OTHER, SELFPAY ==
[2024-05-10 12:10] LABS: Alanine Aminotransferase 63 U/L (16-63); Albumin Globulin Ratio 1.5; Albumin Level 4.4 g/dL (3.4-5.0); Alkaline Phosphatase 41 U/L (46-116); Anion Gap 13.8; Aspartate Amino Transferase 24 U/L (15-37); BUN Creatinine Ratio 11.4; Bilirubin Total 0.5 mg/dL (0.2-1.0); Calcium 9.2 mg/dL (8.5-10.1); Carbon Dioxide 25.6 mmol/L (21.0-32.0); Chloride 102 mmol/L (98-107); Estimated GFR (African America >60 (>=60 mL/min/1.73m^2); Estimated GFR (Non-African Ame >60 (>=60 mL/min/1.73m^2); Globulin 2.9 g/dL; Glucose 91 mg/dL (74-106); Potassium 4.4 mmol/L (3.5-5.1); Sodium 137 mmol/L (136-145); Total Protein 7.3 g/dL (6.4-8.2)
== END 2024-05-10 11:23 | disposition home or self-care (01) ==
LOC: LAB 11:26
PROVIDERS: PCP Nurse Practitioner Family; Visit Provider Nurse Practitioner Family
DX: R79.89 Other specified abnormal findings of blood chemistry (principal)
CPT/HCPCS: 36415; 80053